=== PATIENT | male | born 1945 | race Caucasian/White ===

== ENCOUNTER → 2023-07-27 | Outpatient (CLI) | payer OTHER, SELFPAY ==
--- NOTE | 2023-07-27 | PROSBIL_PTH ---
PATIENT: BOBBY EDMOND LOC: [facility] U#:[id number] AGE/SX: 78/M ROOM: RE07/27/[address]: Dr. Amol Tang MD : 1945 BED: DIS: 07/27/2023 SPEC #: [id number] RECD: 07/27/23 15:24 STATUS: GILLIAN REViraj #: [id number] JAI: 07/27/23 00:[address]: Amol Tang DEPT: SURGICAL PATHOLOGY RECD BY: Calvin Crowell ENTERED: 07/30/23 10:27 SP TYPE: PROST BX OTHR DR: ELIAN Tissues: A - PROSTATE BIOPSY B - PROSTATE BIOPSY C - PROSTATE BIOPSY D - PROSTATE BIOPSY Procedures: PROSTATE BX HEADER OPERATION: Bilateral prostate biopsy PRE-OP DIAGNOSIS: Elevated prostate specific antigen TISSUE SUBMITTED: A - Prostate tissue #1, B- Prostate tissue #2, C- Prostate tissue #3, D- Prostate tissue #4 MICROSCOPIC DIAGNOSIS A. Prostate tissue #1, core biopsy: Prostatic adenocarcinoma. [place] grade: 4+3=7 Number of cores involved: 1/1 Proportion of tissue involved: >90 % Perineural invasion: Not identified. Greatest tumor length: 1.2 cm Focal high-grade prostatic intraepithelial neoplasia (HGPIN). B. Prostate tissue #2, core biopsy: Prostatic adenocarcinoma. [place] grade: 5+4=9 Number of cores involved: 1/1 Proportion of tissue involved: >90 % Perineural invasion: Present, focal Greatest tumor length: 1.3 cm Focal high-grade prostatic intraepithelial neoplasia (HGPIN). C. Prostate tissue #3, core biopsy: Prostatic adenocarcinoma. [place] grade: 5+4=9 Number of cores involved: 1/1 Proportion of tissue involved: >90 % Perineural invasion: Not identified. Greatest tumor length: 1.3 cm D. Prostate tissue #4, core biopsy: Prostatic adenocarcinoma. [place]i grade: 5+5=10 Number of cores involved: 1/1 Proportion of tissue involved: 50 % Perineural invasion: Not identified. Greatest tumor length: 0.5 cm SJ/mr 07/31/23 COMMENT Case has been reviewed in consultation with Dr. Beverly who concurs with the above diagnosis. IDC:AM MICROSCOPIC DESCRIPTION Slides are reviewed. GROSS DESCRIPTION A. Received in fixative is one container labeled with the patient's name and designated prostate biopsy #1. The specimen consists of one elongated fragments of light mackay-white soft tissue each measuring 1.5 cm in length and 0.1 cm in diameter. The specimen is totally submitted in one cassette. B. Received in fixative is one container labeled with the patient's name and designated prostate biopsy #2. The specimen consists of one elongated fragments of light mackay-white soft tissue each measuring 1.5 cm in length and 0.1 cm in diameter. The specimen is totally submitted in one cassette. C. Received in fixative is one container labeled with the patient's name and designated prostate biopsy#3. The specimen consists of one elongated fragments of light mackay-white soft tissue each measuring 2.0 cm in length and 0.1 cm in diameter. The specimen is totally submitted in one cassette. D. Received in fixative is one container labeled with the patient's name and designated prostate biopsy#4. The specimen consists of one elongated fragments of light mackay-white soft tissue each measuring 1.0 cm in length and 0.1 cm in diameter. The specimen is totally submitted in one cassette. AM/mr 07/30/23 TC:0 [facility]: [id number] x4
== END | disposition home or self-care (01) ==
LOC: LABSPEC 15:39
PROVIDERS: Referring Provider Urology; Visit Provider Urology
DX: C61 Malignant neoplasm of prostate (principal)
CPT/HCPCS: 88305; G0416

== ENCOUNTER → 2023-08-06 | Outpatient (CLI) | payer SELFPAY, OTHER ==
--- NOTE | 2023-08-06 09:30 | NM_ITS ---
CLINICAL: Male, 78 years old. MALIGNANT NEOPLASM OF PROSTATE-NEW DX -- PT IMMEDIATELY POST VOID WHOLE BODY NUCLEAR BONE SCAN TECHNIQUE: Following the IV administration of 21 mCi of Tc MDP, whole body bone imaging was performed with a gamma camera following a three hour delay. COMPARISON STUDIES : NM - None. CR - Not available for review at this time. CT - Not available for review at this time. MR - Not available for review at this time. US - Not available for review at this time. FINDINGS: Increased radiopharmaceutical uptake is seen in the right humeral head. Mild increased uptake also seen in both acromioclavicular joints as well as sternoclavicular joint most likely degenerative although radiographic correlation with the right shoulder is recommended. Focal uptake is seen in the compartment of the knee joint suggestive of degenerative change. Scattered focal uptake seen along the right thoracic spine. Correlation with radiographs recommended. NM/Bone Scan Whole Body IMPRESSION: Findings suggestive of a degenerative changes as described. The uptake in the thoracic spine most likely is degenerative in nature although correlation with the radiographs of the thoracic spine and right shoulder recommended. Electronically Signed: Grant Viera MD at 8:26 EDT ,
== END | disposition home or self-care (01) ==
PROVIDERS: PCP Family Medicine; Visit Provider Urology
DX: C61 Malignant neoplasm of prostate (principal)
CPT/HCPCS: 78306; A9503

== ENCOUNTER → 2023-08-13 | Outpatient (CLI) | payer SELFPAY, OTHER ==
--- NOTE | 2023-08-13 14:38 | CT_ITS ---
STUDY: CT ABDOMEN AND PELVIS WITH CONTRAST REASON FOR EXAM: Male, 78 years old. Malignant neoplasm of prostate RADIATION DOSAGE (If Supplied By Facility): CTDIvol = ( 18.68 ) mGy, DLP = ( 1438.33 ) mGycm TECHNIQUE: Transaxial images were obtained from the dome of the diaphragm to the symphysis pubis without oral contrast. IV 100mL Isovue-300 was administered. Sagittal and coronal images were reconstructed. Individualized dose optimization techniques were used for this CT. COMPARISON: None. FINDINGS: Minimal increased linear markings at the lung bases suggestive of scarring. Prior aortic valve replacement. Coronary artery calcification. Prior mitral valve replacement. Normal liver. The patient is status post cholecystectomy. Normal spleen. Normal pancreas. Normal bilateral adrenal glands. Normal right kidney. Normal left kidney. Normal visualized stomach. Normal small intestine. A large amount of fecal material is seen in the colon. The appendix is visualized and appears normal. There is diffuse atherosclerotic calcification of the abdominal aorta and its major visceral branches, without a demonstrated aneurysm. Normal inferior vena cava. Normal retroperitoneum. Distended urinary bladder. Heterogeneous appearance of the prostate. The prostate measures 4.5 cm x 4.3 cm. Small left inguinal hernia containing fat. There are degenerative changes of the visualized lumbar spine. Degenerative changes of the sacroiliac joints bilaterally more prominent on the right side. CT/Abdomen/Pelvis WITH Contrast IMPRESSION: Mild scarring at the lung bases. Heterogeneous appearance of the prostate with distended urinary bladder. Electronically Signed: Grant Viera MD at 15:40 EDT ,
[2023-08-13 15:29] LABS: CREATININE FINGERSTICK 1.3 mg/dL (0.70-1.30)
== END | disposition home or self-care (01) ==
LOC: CT 14:34
PROVIDERS: PCP Family Medicine; Referring Provider Urology; Visit Provider Urology
DX: C61 Malignant neoplasm of prostate (principal)
CPT/HCPCS: 74177; Q9967

== ENCOUNTER → 2024-12-24 | Outpatient (CLI) | payer SELFPAY, OTHER ==
--- OUTSIDE RECORDS SUMMARY | 2024-12-24 07:30 | XMS RPT_ITS | CCD ---
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 [Interp] N/A Normal [facility] Comment on above: Performed By: #### 2 97738 #### [facility],[address] [place] [address] Neut # 3.58 x10EE3/UL Normal 1.50 - 7.10 [facility] Comment on above: Performed By: #### 2 11059 #### [facility],[address] [place] [address] Neutrophils/100 WBC (Bld) 56.9 % Normal 46.0 - 76.0 [facility] Comment on above: Performed By: #### 2 52608 #### [facility],[address] [place] [address] PLATELET 172 x10EE3/UL Normal 150 - 450 [facility] Comment on above: Performed By: #### 2 59017 #### [place] [address] Platelet mean volume (Bld) [Entitic vol] 8.2 fL Normal 6.4 - 10.5 [facility] Comment on above: Result Comment: AUTO MATED DIFFERENTIAL Performed By: #### 2 40565 #### [place] [address],[place] [address] RBC 4.49 x 10EE6/UL Low 4.50 - 6.00 [facility] Comment on above: Performed By: #### 2 44183 #### [facility],[address] [place] [address]3763 WBC 6.3 x 10EE3/UL Normal 4.5 - 10.8 [facility] Comment on above: Performed By: #### 2 47185 #### [facility],[address] [place] [address]4413 CMP with eGFRon 11-24-2024 AGE 79 years Normal [facility] Comment on above: Performed By: #### 2 00958 #### [facility],[address] [place] [address] 73294 Albumin [Mass/Vol] 3.7 g/dL Normal 3.4 - 5.0 [facility] Comment on above: Performed By: #### 2 78677 #### [facility],[address] [place] [address] 24856 Albumin/Globulin [Mass ratio] 0.9 {ratio} Normal 0.9 - 1.6 [facility] Comment on above: Performed By: #### 2 89531 #### [facility],[address] [place] [address] 06577 ALK PHOS 129 U/L High 46 - 116 [facility] Comment on above: Performed By: #### 2 23685 #### [facility],[address] [place] [address] 48148 ALT [Catalytic activity/Vol] 28 U/L Normal 16 - 63 [facility] Comment on above: Performed By: #### 2 10642 #### [facility],[address] [place] [address] 75480 Anion gap [Moles/Vol] 11 mmol/L Normal 10 - 20 [facility] Comment on above: Performed By: #### 2 55031 #### [facility],[address] [place] [address] 01840 AST [Catalytic activity/Vol] 18 U/L Normal 15 - 37 [facility] Comment on above: Performed By: #### 2 68884 #### [facility],[address] [place] [address] 08156 B/C RATIO 20 ratio Normal 0 - 30 [facility] Comment on above: Performed By: #### 2 37789 #### [facility],[address] [place] [address] 70333 Bilirubin [Mass/Vol] 0.3 mg/dL Normal 0.2 - 1.0 [facility] Comment on above: Performed By: #### 2 90680 #### [facility],[address] [place] [address] 02477 Calcium [Mass/Vol] 9.2 mg/dL Normal 8.5 - 10.1 [facility] Comment on above: Performed By: #### 2 81378 #### [facility],[address] [place] [address] 23385 Chloride [Moles/Vol] 107 mmol/L Normal 98 - 107 [facility] Comment on above: Performed By: #### 2 38347 #### [facility],[address] [place] [address] 78753 CMP with eGFR Normal [facility] Comment on above: Result Comment: COMP REHENSIVE METABOLIC PANEL Performed By: #### 2 16105 #### [facility],[address] [place] [address] 33385 CO2 [Moles/Vol] 31.6 mmol/L Normal 21.0 - 32.0 [facility] Comment on above: Performed By: #### 2 32695 #### [facility],[address] [place] [address] 24561 Creatinine [Mass/Vol] 0.84 mg/dL Normal 0.70 - 1.30 [facility] Comment on above: Performed By: #### 2 96571 #### [facility],[address] [place] [address] 75116 GFR/1.73 sq M.predicted among non-blacks MDRD (S/P/Bld) [Vol rate/Area] mL/min/{1.73_m2} Normal 60 - 999 [facility] Comment on above: Performed By: #### 2 61294 #### [facility],[address] [place] [address] 04404 Result Comment: ACCO RDING TO THE NATIONAL KIDNEY DISEASE EDUCATION PROGRAM(NKDE), A NORMAL eGFR IS A VALUE GREATER THAN OR EQUAL TO 60 ML/MIN/1.73 SQ METERS. CHRONIC KIDNEY DISEASE: <60mL/MIN/1.73 SQ METERS KIDNEY FAILURE: <15mL/MIN/1.73 SQ METERS THIS TEST SHOULD ONLY BE USED FOR PATIENTS 18 YEARS OF AGE AND OLDER. Globulin (S) [Mass/Vol] 3.9 g/dL High 1.5 - 3.8 [facility] Comment on above: Performed By: #### 2 27441 #### [facility],[address] [place] [address] 16705 Glucose [Mass/Vol] 100 mg/dL Normal 74 - 106 [facility] Comment on above: Performed By: #### 2 96708 #### [facility],[address] [place] [address] 35736 Potassium [Moles/Vol] 4.5 mmol/L Normal 3.5 - 5.1 [facility] Comment on above: Performed By: #### 2 32520 #### [facility],[address] [place] [address] 95787 Protein [Mass/Vol] 7.6 g/dL Normal 6.4 - 8.2 [facility] Comment on above: Performed By: #### 2 52379 #### [facility],[address] [place] [address] 92879 Sodium [Moles/Vol] 145 mmol/L Normal 136 - 145 [facility] Comment on above: Performed By: #### 2 70180 #### [facility],[address] [place] [address] 30823 Urea nitrogen [Mass/Vol] 17 mg/dL Normal 7 - 18 [facility] Comment on above: Performed By: #### 2 49038 #### [facility],[address] [place] [address] 01644 IRONon 11-24-2024 Iron [Mass/Vol] 66 ug/dL Normal 65 - 175 [facility] Comment on above: Performed By: #### 2 54142 #### [facility],[address] [place] [address] 55197 NT-proBNPon 11-24-2024 Natriuretic peptide B (Bld) [Mass/Vol] 576 pg/mL High 0 - 450 [facility] Comment on above: Performed By: #### 2 48245 #### [facility],[address] [place] [address] 76676 T4 (THYROXINE) TOTALon 11-24 T4 (THYROXINE) TOTAL Normal [facility] Comment on above: Result Comment: THYR OXINE(T4) Performed By: #### 2 61137 #### [facility],[address] [place] [address] 75170 T4 [Mass/Vol] 5.8 ug/dL Normal 4.7 - 13.3 [facility] Comment on above: Performed By: #### 2 55692 #### [facility],[address] [place] [address] 57930 TSHon 11-24-2024 TSH Qn 5.42 m[IU]/L High 0.35 - 3.74 [facility] Comment on above: Performed By: #### 2 38790 #### [facility],[address] [place] [address] 21929 URINALYSISon 11-24-2024 Amorphous NONE Normal [facility] Comment on above: Performed By: #### 2 23169 #### [facility],[address] [place] [address] 14149 Bacteria TRACE Normal [facility] Comment on above: Performed By: #### 2 42314 #### [facility],[address] [place] [address] 46501 Bilirubin Ql (U) Negative Normal NORMAL: NEGATIVE [facility] Comment on above: Performed By: #### 2 78053 #### [facility],[address] [place] [address] 15007 Casts NONE Normal [facility] Comment on above: Performed By: #### 2 01302 #### [facility],[address] [place] [address] 32382 Clarity (U) clear Normal NORMAL: CLEAR [facility] Comment on above: Performed By: #### 2 72694 #### [facility],[address] [place] [address] 08098 Color (U) yellow Normal NORMAL: YELLOW [facility] Comment on above: Performed By: #### 2 10905 #### [facility],[address] [place] [address] 49807 Crystals LM Nom (Urine sed) NONE Normal [facility] Comment on above: Performed By: #### 2 53764 #### [facility],[address] [place] [address] 69884 Epi Cells OCC Normal [facility] Comment on above: Performed By: #### 2 99350 #### [facility],[address] [place] [address] 21082 Glucose Ql (U) NORM Normal NORMAL: NORMAL [facility] Comment on above: Performed By: #### 2 06870 #### [facility],[address] [place] [address] 22697 Hemoglobin Ql (U) 25 Abnormal NORMAL: NEGATIVE [facility] Comment on above: Performed By: #### 2 40301 #### [facility],[address] [place] [address] 44856 Ketone Negative Normal NORMAL: NEGATIVE [facility] Comment on above: Performed By: #### 2 94981 #### [facility],[address] [place] [address] 70691 Leukocytes 100 Abnormal NORMAL: NEGATIVE [facility] Comment on above: Performed By: #### 2 46482 #### [facility],[address] [place] [address] Mucous NONE Normal [facility] Comment on above: Performed By: #### 2 62743 #### [facility],[address] [place] [address] Nitrite Ql (U) Negative Normal NORMAL: NEGATIVE [facility] Comment on above: Performed By: #### 2 32078 #### [facility],[address] [place] [address] pH (U) 6 [pH] Normal NORMAL: 5.0-8.0 [facility] Comment on above: Performed By: #### 2 99192 #### [facility],[address] [place] [address] Protein Ql (U) 15 Abnormal NORMAL: NEGATIVE [facility] Comment on above: Performed By: #### 2 86571 #### [facility],[address] [place], [place] [address] Rbc 0-5 Normal 0-3/hpf [facility] Comment on above: Performed By: #### 2 12527 #### [facility],[address] [place], [place] [address] Sp Zillah 1.015 Normal NORMAL: 1.010-1.030 [facility] Comment on above: Performed By: #### 2 82115 #### [facility],[address] [place] [address] Specimen Type Void Normal [facility] Comment on above: Performed By: #### 2 36641 #### [facility],[address] [place] [address] Urinalysis dipstick W Reflex Microscopic panel (U) SEE BELOW Normal [facility] Comment on above: Result Comment: MICR OSCOPIC Performed By: #### 2 79803 #### [facility],[address] [place] [address] Urobilinog NORM Normal NORMAL: NORMAL [facility] Comment on above: Performed By: #### 2 94053 #### [facility],[address] [place] [address] Wbc 1-5 Normal 0-5/hpf [facility] Comment on above: Performed By: #### 2 74904 #### [facility],[address] [place] [address] Yeast NONE Normal [facility] Comment on above: Performed By: #### 2 15149 #### [facility],[address] [place] [address] CT CHEST/ABD/PELVIS C-C+on 0 06-20-2024 CT CHEST/ABD/PELVIS C-C+ [place] [address] Patient: MICHAEL EDMOND Phone#: : 1945 Age: 79 Gender: M Pt. Type: Out Account: [id number] Location: [facility] Ordering: LIVE RAFAEL Exam Date: 06/20/2024/14:14 Family Phys: RACHEAL ZUÑIGAD Charge Code: 026324 Physician: Laurel Order #: [id number] Dose#: [id number] PROCEDURE: CT CHEST/ABD/PELVIS W/WO COMPARISON: None. INDICATIONS: Prostate cancer. TECHNIQUE: After obtaining the patient's consent, CT images were obtained with oral contrast and with and without intravenous contrast material. All CT scans at this facility use dose modulation, iterative reconstruction, and/or weight based dosing when appropriate to reduce radiation dose to as low as reasonably achievable. IV CONTRAST: Omnipaque 350,80ml CHEST DOSE: 9.0 CTDIvol(mGy) ABDOMEN DOSE: 35.8 CTDIvol(mGy) FINDINGS: LUNGS: Normal. No visible pulmonary disease. VASCULATURE: Normal. No visible pulmonary arterial thrombus or attenuation. RUKHSANA: Normal. No mass or adenopathy. MEDIASTINUM: Normal. No mass or adenopathy. CARDIAC: Coronary artery calcification is present. There is a moderate hiatal hernia PLEURA: Normal. No mass or effusion. CHEST WALL: Normal. No mass or axillary adenopathy. LIVER: Normal. No enlargement, atrophy, abnormal density, or significant focal lesion. BILIARY: The gallbladder is absent. PANCREAS: Normal. No lesion, fluid collection, ductal dilatation, or atrophy. SPLEEN: Normal. No enlargement or focal lesion. KIDNEYS: Normal. No mass, obstruction, or calcification. ADRENALS: Normal. No mass or enlargement. AORTA/VASCULAR: Normal. No aneurysm or dissection. RETROPERITONEUM: Normal. No mass or adenopathy. BOWEL/MESENTERY: Normal. No visible mass, obstruction, or bowel wall thickening. ABDOMINAL WALL: Normal. No mass or hernia. Continued Report - Page 2 of 2 Patient: MICHAEL EDMOND. Phone#: : 1945 Age: 79 Gender: M Pt. Type: Out Account: [id number] Location: [facility] Ordering: Funding ProfilesNIE Exam Date: 06/20/2024/14:14 Family Phys: RACHEAL STEPHENS Charge Code: 498069 Physician: Laurel Order #: [id number] Dose#: [id number] URINARY BLADDER: There is minimal thickening of the bladder wall. Correlate with cystitis. PELVIC NODES: Normal. No adenopathy. PELVIC ORGANS: Normal. No visible mass. Pelvic organs appropriate for patient age. BONES: Normal. No bony lesion or fracture. OTHER: Negative. CONCLUSION: 1. There is no evidence of acute abdominal or pelvic abnormality. 2. There is no evidence of pulmonary embolus. Dictated by: Lisa Dowling MD on 06/20/2024 at 15:00 Approved by: Lisa Dowling MD on 06/20/2024 at 15:07 Normal [facility] CMP with eGFRon 06-18-2024 AGE 79 years Normal [facility] Comment on above: Performed By: #### 2 56022 #### [facility],[address] [place] [address] 93493 Albumin [Mass/Vol] 3.2 g/dL Low 3.4 - 5.0 [facility] Comment on above: Performed By: #### 2 77069 #### [facility],[address] [place] [address] 66680 Albumin/Globulin [Mass ratio] 0.8 {ratio} Low 0.9 - 1.6 [facility] Comment on above: Performed By: #### 2 30866 #### [facility],[address] [place] [address] 08686 ALK PHOS 127 U/L High 46 - 116 [facility] Comment on above: Performed By: #### 2 31805 #### [facility],[address] [place] [address] 55696 ALT [Catalytic activity/Vol] 24 U/L Normal 16 - 63 [facility] Comment on above: Performed By: #### 2 46955 #### [facility],[address] [place] [address] 89072 Anion gap [Moles/Vol] 8 mmol/L Low 10 - 20 [facility] Comment on above: Performed By: #### 2 43934 #### [facility],[address] [place] [address] 84169 AST [Catalytic activity/Vol] 20 U/L Normal 15 - 37 [facility] Comment on above: Performed By: #### 2 26912 #### [facility],[address] [place] [address] 27060 B/C RATIO 14 ratio Normal 0 - 30 [facility] Comment on above: Performed By: #### 2 32608 #### [facility],[address] [place] [address] 36165 Bilirubin [Mass/Vol] 0.2 mg/dL Normal 0.2 - 1.0 [facility] Comment on above: Performed By: #### 2 77713 #### [facility],[address] [place] [address] 82486 Calcium [Mass/Vol] 9.3 mg/dL Normal 8.5 - 10.1 [facility] Comment on above: Performed By: #### 2 89009 #### [facility],[address] [place] [address] 83283 Chloride [Moles/Vol] 107 mmol/L Normal 98 - 107 [facility] Comment on above: Performed By: #### 2 16303 #### [facility],[address] [place] [address] 31128 CMP with eGFR Normal [facility] Comment on above: Result Comment: COMP REHENSIVE METABOLIC PANEL Performed By: #### 2 14118 #### [facility],[address] [place] [address] 35111 CO2 [Moles/Vol] 32.0 mmol/L Normal 21.0 - 32.0 [facility] Comment on above: Performed By: #### 2 19577 #### [facility],[address] [place] [address] 33596 Creatinine [Mass/Vol] 1.00 mg/dL Normal 0.70 - 1.30 [facility] Comment on above: Performed By: #### 2 95650 #### [facility],[address] [place] [address] 44560 GFR/1.73 sq M.predicted among non-blacks MDRD (S/P/Bld) [Vol rate/Area] mL/min/{1.73_m2} Normal 60 - 999 [facility] Comment on above: Performed By: #### 2 75337 #### [facility],[address] [place] [address] 84124 Result Comment: ACCO RDING TO THE NATIONAL KIDNEY DISEASE EDUCATION PROGRAM(NKDE), A NORMAL eGFR IS A VALUE GREATER THAN OR EQUAL TO 60 ML/MIN/1.73 SQ METERS. CHRONIC KIDNEY DISEASE: <60mL/MIN/1.73 SQ METERS KIDNEY FAILURE: <15mL/MIN/1.73 SQ METERS THIS TEST SHOULD ONLY BE USED FOR PATIENTS 18 YEARS OF AGE AND OLDER. Globulin (S) [Mass/Vol] 4.0 g/dL High 1.5 - 3.8 [facility] Comment on above: Performed By: #### 2 07546 #### [address] [address] Glucose [Mass/Vol] 98 mg/dL Normal 74 - 106 [facility] Comment on above: Performed By: #### 2 37946 #### [address] [address] Potassium [Moles/Vol] 4.6 mmol/L Normal 3.5 - 5.1 [facility] Comment on above: Performed By: #### 2 11041 #### [address] [address] Protein [Mass/Vol] 7.2 g/dL Normal 6.4 - 8.2 [facility] Comment on above: Performed By: #### 2 86479 #### [address] [address] Sodium [Moles/Vol] 142 mmol/L Normal 136 - 145 [facility] Comment on above: Performed By: #### 2 11630 #### [address] [address] Urea nitrogen [Mass/Vol] 14 mg/dL Normal 7 - 18 [facility] Comment on above: Performed By: #### 2 95195 #### [address] [address] CEA [CCL]on 05-14-2024 CEA 4.2 ng/mL High <=2.9 [facility] Comment on above: Result Comment: Carc inoembryonic antigen test is used as an aid in monitoring response to treatment or recurrence in patients with established colorectal, breast, lung, prostatic, pancreatic, and ovarian carcinomas. Clinical correlation is required. The Carcinoembryonic antigen test was performed using the [place] [employer] DXI paramagnetic particle chemiluminescent immunoassay method. Results obtained with different assay methods or kits cannot be used interchangeably. [place] [id number] [place] [id number] Steve Fontaine III, M.D. [id number] Performed By: #### 2 41084 #### [facility],[address] [place] [address] 06582 PSA, FREE [CCL]on 05-13-2024 PSA, Diagnostic 7.98 ng/mL High <2.60 [facility] Comment on above: Result Comment: Tota l PSA test methodology used is the Electrochemiluminescence Immunoassay by [employer]. Total PSA values by differing methodologies cannot be interchanged. For an individual patient, the significance of a PSA level should be interpreted in a broad clinical context, including age, race, family history, digital rectal exam, prostate size, results of prior testing (prostate biopsy, free PSA, PCA3), and use of 5-alpha reductase inhibitors. Considering the high incidence of asymptomatic cancer in the general population that may not pose an ultimate risk to a patient, the decision to recommend urological evaluation or prostate biopsy should be individualized after consideration of all these factors. REFERENCE: Andrae Marks M.D., M.P.H., Chung Caicedo M.D., Ph.D., Chase Puentes M.D., Laine Armstrong, M.P.H., Leanna Galindo, Anthony. Effect of Verification Bias on Screening for Prostate Cancer by Measurement of Prostatic Specific Antigen. N Engl J Med 2003,349:335-42. Performed By: #### 2 12357 #### [facility],[address] [place] [address] 22006 PSA, Percent Free 11 % Normal [facility] Comment on above: Result Comment: Tota l and free PSA test methodology used is the Electrochemiluminescence Immunoassay by [employer]. Total or free PSA values by differing methodologies cannot be interchanged. The below table lists the probability of finding prostate cancer upon needle biopsy, for men 50 years or older and total PSA concentrations from 4.0-10.0 ng/mL. Results should be interpreted within the broader clinical context. Free PSA(%) 50-59 years 60-69 years >69 years <11 49.2% 57.5% 64.5% 11-18 26.9% 33.9% 40.8% 19-25 18.3% 23.9% 29.7% >25 9.1% 12.2% 15.8% [facility] [address] [place] [address] Steve Fontaine III, M.D. [id number] Performed By: #### 2 77588 #### [address] [address] TESTOSTERONE [CCL]on 025 Testosterone [Mass/Vol] 712 ng/dL Normal 193-824 [facility] Comment on above: Result Comment: A te stosterone level in the 193-320 ng/dL range with associated clinical symptoms is considered low and may indicate hypogonadism (from [place] 2010 363:123-135). Results >320 ng/dL are considered normal. [facility] [address] [place] [address] Steve Fontaine III, M.D. [id number] Performed By: #### 2 97155 #### [address] [address] T3, FREE [CCL]on 05-12-2024 Free T3 [Mass/Vol] 2.9 pg/mL Normal 2.3-4.1 [facility] Comment on above: Result Comment: [facility] [address] [place] [address] Steve Fontaine III, M.D. [id number] Performed By: #### 2 27597 #### [address] [address] T4-FREE (FREE THYROXINE)on 05-12-2024 Free T4 [Mass/Vol] 0.41 ng/dL Low 0.76 - 1.46 [facility] Comment on above: Result Comment: P otential of falsely elevated results when biotin concentrations are > 10 ng/mL. Performed By: #### 2 75725 #### [facility],[address] [place] [address] 38086 SEDRATEon 05-11-2024 SEDRATE 38 mm/hr High 0 - 20 [facility] Comment on above: Performed By: #### 2 86985 #### [facility],[address] [place] [address] 10172 C-REACTIVE PROTEINon 025 CRP [Mass/Vol] mg/L Normal 0.00 - 0.90 [facility]; [facility] Work Phone: Comment on above: Performed By: #### 2 26253 #### [facility],[address] [place] [address] 80893 CBC + DIFFon 05-10-2024 Baso # 0.01 x10EE3/UL Normal 0.00 - 0.10 [facility] Comment on above: Performed By: #### 2 39110 #### [address] [address] Basophils/100 WBC (Bld) 0.2 % Normal 0.0 - 2.0 [facility]; [facility] Work Phone: Comment on above: Performed By: #### 2 43681 #### [facility],[address] [place] [address] 02546 CBC + DIFF Normal [facility] Comment on above: Result Comment: CBC- COMPLETE BLOOD COUNT Performed By: #### 2 32897 #### [facility],[address] [place] [address] 53448 EO # 0.08 x10EE3/UL Normal 0.00 - 0.50 [facility] Comment on above: Performed By: #### 2 25370 #### [facility],[address] [place] [address] 23671 Eosinophils/100 WBC (Bld) 1.9 % Normal 0.0 - 7.0 [facility], [employer] [facility] [employer] [facility], [employer] Work Phone: Comment on above: Performed By: #### 2 80907 #### [address] [address] Erythrocyte distribution width (RBC) [Ratio] 13.7 % Normal 12.0 - 15.6 [facility], [employer] [facility] Work Phone: Comment on above: Performed By: #### 2 06301 #### [address] [address] Hematocrit (Bld) [Volume fraction] 38.5 % Low 40.0 - 52.0 [facility] [employer] [place] [facility] [employer] [facility], Inc[facility] Work Phone: Comment on above: Performed By: #### 2 [id number] #### [address] [address] Hemoglobin (Bld) [Mass/Vol] 12.8 g/dL Low 13.0 - 17.5 [facility] [employer] [facility], [employer].; [facility] [employer] [facility] Work Phone: Comment on above: Performed By: #### 2 60329 #### [address] [address] Lymph # 1.25 x10EE3/UL Normal 0.80 - 2.80 [facility] Comment on above: Performed By: #### 2 07007 #### [address] [address] Lymphocytes/100 WBC (Bld) 29.9 % Normal 20.0 - 45.0 [facility].; [facility]. Work Phone: Comment on above: Performed By: #### 2 71665 #### [facility],[address] [place], [place] [id number] MANUAL DIFF N/A Normal [facility] Comment on above: Performed By: #### 2 74571 #### [facility],[address] [place] [address] MCH (RBC) [Entitic mass] 30 pg Normal 27 - 33 [facility].; [facility]. Work Phone: Comment on above: Performed By: #### 2 22135 #### [place] [address] MCHC 33 X10 3 Normal 32 - 36 [facility] Comment on above: Performed By: #### 2 44391 #### [place] [address] MCV (RBC) [Entitic vol] 89 fL Normal 81 - 98 [facility] ClinicsSn[facility] [employer]rends [facility].; [facility] Work Phone: Comment on above: Performed By: #### 2 58622 #### [facility],[address] [place] [address] Sawyer # 0.34 x10EE3/UL Normal 0.20 - 1.00 [facility] Comment on above: Performed By: #### 2 23628 #### [facility],[address] [place] [address] MONOS % 8.0 % Normal 0.0 - 10.0 [facility] Comment on above: Performed By: #### 2 30861 #### [place] [id number] Morphology Leoncio (Bld) [Interp] N/A Normal [facility] Comment on above: Performed By: #### 2 69884 #### [facility],[address] [place] [address] Neut # 2.51 x10EE3/UL Normal 1.50 - 7.10 [facility] Comment on above: Performed By: #### 2 22965 #### [facility],[address] [place] [address] Neutrophils/100 WBC (Bld) 59.9 % Normal 46.0 - 76.0 [facility].; [facility], [employer]. Work Phone: Comment on above: Performed By: #### 2 12274 #### [facility],[address] [place] [address] PLATELET 173 x10EE3/UL Normal 150 - 450 [facility] Comment on above: Performed By: #### 2 42472 #### [facility],[address] [place] [address] Platelet mean volume (Bld) [Entitic vol] 8.5 fL Normal 6.4 - 10.5 [facility].; [facility], [employer]. Work Phone: Comment on above: Result Comment: AUTO MATED DIFFERENTIAL Performed By: #### 2 71484 #### [facility],[address] [place] [address]22 RBC 4.34 x 10EE6/UL Low 4.50 - 6.00 [facility] Comment on above: Performed By: #### 2 90649 #### [facility],[address] [place] [address] WBC 4.2 x 10EE3/UL Low 4.5 - 10.8 [facility] Comment on above: Performed By: #### 2 81945 #### [facility],[address] [place] [address] CMP with eGFRon 05-10-2024 AGE 79 years Normal [facility] Comment on above: Performed By: #### 2 84241 #### [facility],[address] [place] [address]229 Albumin [Mass/Vol] 3.5 g/dL Normal 3.4 - 5.0 [facility], [facility].; [facility], [facility]. Work Phone: Comment on above: Performed By: #### 2 75106 #### [facility],[address] [place] [address] Albumin/Globulin [Mass ratio] 0.8 {ratio} Low 0.9 - 1.6 [facility] Comment on above: Performed By: #### 2 34744 #### [facility],[address] [place] [address] ALK PHOS 132 U/L High 46 - 116 [facility] Comment on above: Performed By: #### 2 74172 #### [facility],[address] [place] [address] 06163 ALT [Catalytic activity/Vol] 25 U/L Normal 16 - 63 [facility].; [facility], [facility]. Work Phone: Comment on above: Performed By: #### 2 49082 #### [facility],[address] [place] [address] Anion gap [Moles/Vol] 11 mmol/L Normal 10 - 20 [facility] Comment on above: Performed By: #### 2 97827 #### [facility],[address] [place] [address]605 AST [Catalytic activity/Vol] 23 U/L Normal 15 - 37 [facility].; [facility], [facility]. Work Phone: Comment on above: Performed By: #### 2 55337 #### [facility],[address] [place] [address] B/C RATIO 14 ratio Normal 0 - 30 [facility] Comment on above: Performed By: #### 2 39638 #### [facility],[address] [place] [address] Bilirubin [Mass/Vol] 0.2 mg/dL Normal 0.2 - 1.0 [facility]; [facility], [facility] Work Phone: Comment on above: Performed By: #### 2 06875 #### [facility],[address] [place] [address] Calcium [Mass/Vol] 9.4 mg/dL Normal 8.5 - 10.1 [facility], [facility]; [facility], [facility] Work Phone: Comment on above: Performed By: #### 2 99599 #### [address] [address] Chloride [Moles/Vol] 107 mmol/L Normal 98 - 107 [facility]; [facility], [facility]. Work Phone: Comment on above: Performed By: #### 2 76564 #### [address] [address] CMP with eGFR Normal [facility] Comment on above: Result Comment: COMP REHENSIVE METABOLIC PANEL Performed By: #### 2 17601 #### [address] [address] CO2 [Moles/Vol] 29.6 mmol/L Normal 21.0 - 32.0 [facility], [facility].; [facility], [facility]. Work Phone: Comment on above: Performed By: #### 2 41158 #### [address] [address] Creatinine [Mass/Vol] 0.95 mg/dL Normal 0.70 - 1.30 [facility].; [facility] [employer] [facility], [employer]. Work Phone: Comment on above: Performed By: #### 2 80104 #### [facility],[address] [place] [address] GFR/1.73 sq M.predicted among non-blacks MDRD (S/P/Bld) [Vol rate/Area] mL/min/{1.73_m2} Normal 60 - 999 [facility] Comment on above: Performed By: #### 2 66214 #### [facility],[address] [place] [address] Result Comment: ACCO RDING TO THE NATIONAL KIDNEY DISEASE EDUCATION PROGRAM(NKDE), A NORMAL eGFR IS A VALUE GREATER THAN OR EQUAL TO 60 ML/MIN/1.73 SQ METERS. CHRONIC KIDNEY DISEASE: <60mL/MIN/1.73 SQ METERS KIDNEY FAILURE: <15mL/MIN/1.73 SQ METERS THIS TEST SHOULD ONLY BE USED FOR PATIENTS 18 YEARS OF AGE AND OLDER. Globulin (S) [Mass/Vol] 4.3 g/dL High 1.5 - 3.8 [facility].; [facility], [employer]. Work Phone: Comment on above: Performed By: #### 2 47379 #### [facility],[address] [place] [address] Glucose [Mass/Vol] 105 mg/dL Normal 74 - 106 [facility].; [facility] [employer] [facility], [employer]. Work Phone: Comment on above: Performed By: #### 2 68645 #### [facility],[address] [place] [address] Potassium [Moles/Vol] 4.4 mmol/L Normal 3.5 - 5.1 [facility].; [facility], [employer]. Work Phone: Comment on above: Performed By: #### 2 73557 #### [facility],[address] [place] [address] Protein [Mass/Vol] 7.8 g/dL Normal 6.4 - 8.2 [facility].; [facility], [employer]. Work Phone: Comment on above: Performed By: #### 2 80109 #### [facility],[address] [place] [address] Sodium [Moles/Vol] 143 mmol/L Normal 136 - 145 [facility].; [facility] [employer] [facility], [employer]. Work Phone: Comment on above: Performed By: #### 2 18457 #### [facility],[address] [place] [address] Urea nitrogen [Mass/Vol] 13 mg/dL Normal 7 - 18 [facility].; [facility]. Work Phone: Comment on above: Performed By: #### 2 87302 #### [facility],[address] [place] [address] HEMOGLOBIN A1C (POM)on 05-10 Glucose [Mass/Vol] 128.4 mg/dL High 0.0 - 0.0 [facility] Comment on above: Result Comment: Do HEMOGLOBIN A1C REFERENCE RANGESBLDo Suggested Diagnosis HbA1c(%) HbA1C (mmol/mol Diabetic >/=6.5 >/=48 Prediabetes 5.7 - 6.4 39 - 47 Normal <5.7 <39 Performed By: #### 2 60677 #### [facility],[address] [place] [address] HbA1c (Bld) [Mass fraction] 6.1 % Normal 0.0 - 6.5 [facility] Comment on above: Performed By: #### 2 04910 #### [facility],[address] [place] [address] IRONon 05-10-2024 Iron [Mass/Vol] 80 ug/dL Normal 65 - 175 [facility] [employer] [facility], [facility] Work Phone: Comment on above: Performed By: #### 2 54715 #### [facility],[address] [place] [address] LIPID PROFILEon 05-10-2024 Cholesterol [Mass/Vol] 181 mg/dL Normal 0 - 240 [facility] [employer] [facility], [employer].; [facility], Inc. Work Phone: Comment on above: Performed By: #### 2 47823 #### [facility],[address] [place] [address] Cholesterol in HDL [Mass/Vol] 40 mg/dL Normal 40 - 60 [facility] Comment on above: Performed By: #### 2 00143 #### [facility],[address] [place] [address] Cholesterol in LDL [Mass/Vol] 113 mg/dL Normal 0 - 129 [facility].; [facility] [employer] [facility], [facility] Work Phone: Comment on above: Performed By: #### 2 52681 #### [facility],[address] [place] [address] Cholesterol.total/Ch olesterol in HDL [Mass ratio] 4.5 {ratio} Normal 0.0 - 5.0 [facility] [employer] [facility].; [facility] [employer] [facility] Work Phone: Comment on above: Performed By: #### 2 05316 #### [facility],[address] [place] [address] Lipid 1996 panel Normal [facility] Comment on above: Result Comment: LIPI D PROFILE Performed By: #### 2 59338 #### [facility],[address] [place] [address] Triglyceride [Mass/Vol] 142 mg/dL Normal 0 - 150 [facility]; [employer]UNL[employer] Ryan [facility] Work Phone: Comment on above: Performed By: #### 2 53886 #### [facility],[address] [place] [address] Laboratory - Chemistry and C hemistry - challengeon 05-10-2024 25-hydroxyvitamin D3 [Mass/Vol] 69.60 ng/mL Normal 30.00 - 100 ng/mL [facility]; [employer] Ryan [facility]. Work Phone: Albumin [Mass/Vol] 0.8 g/dL Abnormal 0.9 - 1.6 [facility]; [facility] Work Phone: Average glucose Estimated from glycated hemoglobin (Bld) [Mass/Vol] 128.4 mg/dL Abnormal 0.0 - 0.0 mg/dL [facility]; [employer]UN[employer] Ryan [facility] [employer] [facility] Work Phone: Cholesterol in HDL [Mass or moles/Vol] 40 mg/dL Normal 40 - 60 mg/dL [facility]; [employer] Ryan [facility] Work Phone: Free T4 [Mass/Vol] 0.41 ng/dL Abnormal 0.76 - 1. 46 ng/dL [facility]; [employer] Ryan [facility] [employer] [facility] Work Phone: GFR/1.73 sq M.predicted among blacks MDRD (S/P/Bld) [Vol rate/Area] mL/min/{1.73_m2} Normal 60 - 999 {ML/MINUTE} [facility]; [facility] Work Phone: GFR/1.73 sq M.predicted MDRD (S/P/Bld) [Vol rate/Area] mL/min/{1.73_m2} Normal 60 - 999 {ML/MINUTE} [facility] [employer] [facility]; [facility] Work Phone: Glucose [Mass/Vol] NORM Normal [facility]; [facility] Work Phone: Prostate specific Ag [Mass/Vol] 11.10 ng/mL Abnormal 0.00 - 4.00 ng/mL [facility]; [facility] Work Phone: Urea nitrogen (U) [Mass/Vol] 676 pg/mL Abnormal 0 - 450 pg/mL [facility]; [facility] Work Phone: Urea nitrogen/Creatinine [Mass ratio] 14 {ratio} Normal 0 - 30 {ratio} [facility]; [facility] Work Phone: Laboratory - Hematology and Cell countson 05-10-2024 Basophils (Bld) [#/Vol] 0.01 {x10EE3/UL} Normal 0.00 - 0.10 {x10EE3/UL} [facility]; [facility], [facility] Work Phone: Eosinophils (Bld) [#/Vol] 0.08 {x10EE3/UL} Normal 0.00 - 0.50 {x10EE3/UL} [facility]; [facility], [facility] Work Phone: ESR (Bld) [Velocity] 38 mm/h Abnormal 0 - 20 mm/h Eas [facility]; [facility], [facility] Work Phone: Lymphocytes (Bld) [#/Vol] 1.25 {x10EE3/UL} Normal 0.80 - 2.80 {x10EE3/UL} [facility]; [facility], [facility] Work Phone: MCHC (RBC) [Mass/Vol] 33 {X10_3} Normal 32 - 36 {X10_3} [facility] [employer] [facility].; [facility], [employer]. Work Phone: Monocytes (Bld) [#/Vol] 0.34 {x10EE3/UL} Normal 0.20 - 1.00 {x10EE3/UL} [facility] [employer] [facility].; [facility], [employer]. Work Phone: Monocytes/100 WBC (Bld) 8.0 % Normal 0.0 - 10.0 % [facility] [employer] [facility].; [facility] [employer] [facility] Work Phone: Neutrophils (Bld) [#/Vol] 2.51 {x10EE3/UL} Normal 1.50 - 7.10 {x10EE3/UL} [facility] [employer] [facility].; [facility] [employer] [facility], [employer]. Work Phone: Platelets (Bld) [#/Vol] 173 {x10EE3/UL} Normal 150 - 450 {x10EE3/UL} [facility] [employer] [facility].; [facility] [employer] [facility] Work Phone: RBC (Bld) [#/Vol] 4.34 {x_10EE6/UL} Abnormal 4.50 - 6.00 {x_10EE6/UL } [facility] [employer] [facility].; [facility] [employer] [facility] Work Phone: WBC (Bld) [#/Vol] 4.2 {x_10EE3/UL} Abnormal 4.5 - 10.8 {x_10EE3/UL } [facility] [employer] [facility].; [facility] [employer] [facility] Work Phone: NT-proBNPon 05-10-2024 Natriuretic peptide B (Bld) [Mass/Vol] 676 pg/mL High 0 - 450 [facility] Comment on above: Performed By: #### 2 93846 #### [facility],[address] [place] [address] No Panel Informationon 05-10 7.98 ng/mL Abnormal [facility], Inc.; Its Time Compliance [facility] [employer] [facility] Work Phone: 11 % Normal [facility] [employer] [facility], Inc.; [employer] - [facility], Inc[facility] Work Phone: 712 ng/dL Normal 193 - 824 ng/dL [facility], Inc.; [employer] - [facility], Inc. Work Phone: N/A Normal [facility] [employer] [facility], Inc.; [facility], Inc. Work Phone: 6.1 % Normal 0.0 - 6.5 % [facility], Inc.; Its [employer] - [facility] [employer] [facility] Work Phone: Void Normal [facility] [employer] [facility], Inc.; [place] - [facility], Inc. Work Phone: jas Normal [facility] [employer] [facility], [facility].; [employer] - [facility] [employer] [facility] Work Phone: clear Normal [facility] [employer] [facility], [facility].; [place] - [facility] [employer] [facility] Work Phone: 6.5 Normal [facility], Inc.; [employer] - [facility] [employer] [facility] Work Phone: 15 Abnormal [facility] [employer] [facility], Inc.; [place] - [facility] [employer] [facility] Work Phone: Negative Normal [facility] [employer] [facility], [facility].; [employer] - [facility] [employer] [facility] Work Phone: 25 Abnormal [facility] [employer] [facility], Inc.; [email or web address] [facility] [employer] [facility] Work Phone: NORM Normal [facility] [employer] [facility], Inc.; Its [employer] - [facility] [employer] [facility] Work Phone: 1.010 Normal [facility] [employer] [facility], Inc.; [email or web address] [facility] [employer] [facility] Work Phone: 500 Abnormal [facility] [employer] [facility].; [facility], Inc. Work Phone: SEE BELOW Normal [facility] [employer] [facility].; [facility], Inc. Work Phone: 1-5 Normal 0 - 5 [facility] [employer] [facility].; [facility], Inc. Work Phone: 0-5 Normal 0 - 3 [facility].; [facility], Inc. Work Phone: NONE Normal [facility] [employer] [facility].; [facility], Inc. Work Phone: OCC Normal [facility] [employer] [facility].; Its [employer] Compliance [facility] [employer] [facility] Work Phone: 132 U/L Abnormal 46 - 116 U/L [facility] [employer] [facility] IllO[facility].; [email or web address] [facility] [employer] [facility] Work Phone: 11 mmol/L Normal 10 - 20 mmol/L [facility] [employer] [facility].; [facility] [employer] [facility] Work Phone: 79 {years} Normal [facility] [employer] [facility].; Its [employer]iance [facility] [employer] [facility] Work Phone: 2.9 pg/mL Normal 2.3 - 4.1 pg/mL [facility] [employer] [facility].; [email or web address] [facility] [employer] [facility] Work Phone: TSHon 05-10-2024 TSH Qn 16.36 m[IU]/L High 0.35 - 3.74 [facility] [employer] [facility].; Its [employer]iance [facility] [employer] [facility] Work Phone: Comment on above: Performed By: #### 2 51720 #### [facility],[address] [place] [address] URIC ACIDon 05-10-2024 Urate [Mass/Vol] 4.6 mg/dL Normal 3.5 - 7.2 [facility].; [facility] CenterSn[facility]. Work Phone: Comment on above: Performed By: #### 2 97002 #### [facility],[address] [place] [address] 86138 URINALYSISon 05-10-2024 Amorphous NONE Normal [facility] Comment on above: Performed By: #### 2 94390 #### [facility],[address] [place] [address] 86884 Bacteria NONE Normal [facility] Comment on above: Performed By: #### 2 20823 #### [facility],[address] [place] [address] 70060 Bilirubin Ql (U) Negative Normal NORMAL: NEGATIVE [facility] Comment on above: Performed By: #### 2 77504 #### [facility],[address] [place] [address] 50452 Casts NONE Normal [facility] Comment on above: Performed By: #### 2 57328 #### [facility],[address] [place] [address] 75148 Clarity (U) clear Normal NORMAL: CLEAR [facility] Comment on above: Performed By: #### 2 28684 #### [facility],[address] [place] [address] 04316 Color (U) jas Normal NORMAL: YELLOW [facility] Comment on above: Performed By: #### 2 65098 #### [facility],[address] [place] [address] 31615 Crystals LM Nom (Urine sed) NONE Normal [facility] Comment on above: Performed By: #### 2 56514 #### [facility],[address] [place] [address] 44503 Epi Cells OCC Normal [facility] Comment on above: Performed By: #### 2 41441 #### [facility],[address] [place] [address] 89571 Glucose Ql (U) NORM Normal NORMAL: NORMAL [facility] Comment on above: Performed By: #### 2 27523 #### [facility],[address] [place] [address] 38959 Hemoglobin Ql (U) 25 Abnormal NORMAL: NEGATIVE [facility] Comment on above: Performed By: #### 2 98136 #### [facility],[address] [place] [address] 67061 Ketone Negative Normal NORMAL: NEGATIVE [facility] Comment on above: Performed By: #### 2 15808 #### [facility],[address] [place] [address] 06287 Leukocytes 500 Abnormal NORMAL: NEGATIVE [facility] Comment on above: Performed By: #### 2 50668 #### [facility],[address] [place] [address] 57324 Mucous NONE Normal [facility] Comment on above: Performed By: #### 2 [id number] #### [facility],[address] [place] [id number] Nitrite Ql (U) Negative Normal NORMAL: NEGATIVE [facility] Comment on above: Performed By: #### [id number] #### [facility],[address] [place] [address] [id number] pH (U) 6.5 [pH] Normal NORMAL: 5.0-8.0 [facility] Comment on above: Performed By: #### 2 [id number] #### [facility],[address] [place] [address] [id number] Protein Ql (U) 15 Abnormal NORMAL: NEGATIVE [facility] Comment on above: Performed By: #### 2 [id number] #### [facility],[address] [place] [address] [id number] Rbc 0-5 Normal 0-3/hpf [facility] Comment on above: Performed By: #### 2 [id number] #### [facility],[address] [place] [address] Sp Zillah 1.010 Normal NORMAL: 1.010-1.030 [facility] Comment on above: Performed By: #### 2 [id number] #### [facility],[address] [place], [place] [id number] Specimen Type Void Normal [facility] Comment on above: Performed By: #### 2 [id number] #### [facility],[address] [place], [place] [id number] Urinalysis dipstick W Reflex Microscopic panel (U) SEE BELOW Normal [facility] Comment on above: Result Comment: MICR OSCOPIC Performed By: #### 2 [id number] #### [facility],[address] [place], [place] [id number] Urobilinog NORM Normal NORMAL: NORMAL [facility] Comment on above: Performed By: #### 2 [id number] #### [facility],[address] [place] [address] [id number] Wbc 1-5 Normal 0-5/hpf [facility] Comment on above: Performed By: #### 2 [id number] #### [facility],[address] [place] [address] 63243 Yeast NONE Normal [facility] Comment on above: Performed By: #### 2 [id number] #### [facility],[address] [place], [place] [id number] VITAMIN D, 25 HYDROXYon 04-23 VitD 69.60 ng/mL Normal 30.00 - 100 [facility] Comment on above: Result Comment: 25-O HD3 indicates both endogenous production and supplementation. 25-OHD2 is an indicator of exogenous sources, such as diet or supplementation. Therapy is based on measurement of Total 25-OHD, with levels <20 ng/mL indicative of Vitamin D deficiency, while levels between 20 ng/mL and 30 ng/mL suggest insufficiency. Optimal levels are >=30ng/mL. Vitamin D, 25-OH D3 Not Established Vitamin D, 25-OH D2 Not Established Performed By: #### 2 [id number] #### [facility],[address] [place] [address] Laboratory - Chemistry and C hemistry - challengeon 09-24-2023 25-hydroxyvitamin D3 [Mass/Vol] 71.00 ng/mL Normal 30.00 - 100 ng/mL [facility]; [facility], [facility] Work Phone: Albumin [Mass/Vol] 3.3 g/dL Abnormal 3.4 - 5.0 g/dL [facility]; [facility], [facility] Work Phone: Albumin [Mass/Vol] 0.8 g/dL Abnormal 0.9 - 1.6 [facility]; [facility], [facility] Work Phone: ALT [Catalytic activity/Vol] 23 U/L Normal 16 - 63 U/L [facility]; [facility], [facility] Work Phone: Anion gap [Moles/Vol] 11 mmol/L Normal 10 - 20 mmol/L [facility]; [facility], [facility]. Work Phone: AST [Catalytic activity/Vol] 13 U/L Abnormal 15 - 37 U/L [facility]; [facility], [facility] Work Phone: Average glucose Estimated from glycated hemoglobin (Bld) [Mass/Vol] 128.4 mg/dL Abnormal 0.0 - 0.0 mg/dL [facility]; [facility], [facility]. Work Phone: Bilirubin [Mass/Vol] Negative Normal [facility]; [facility], [facility]. Work Phone: Bilirubin [Mass/Vol] 0.2 mg/dL Normal 0.2 - 1 .0 mg/dL [facility]; [facility], [facility] Work Phone: Calcium [Mass/Vol] 9.1 mg/dL Normal 8.5 - 10. 1 mg/dL [facility]; [facility] Work Phone: Chloride [Moles/Vol] 105 mmol/L Normal 98 - 10 7 mmol/L [facility]; [facility] Work Phone: Cholesterol [Mass/Vol] 194 mg/dL Normal 0 - 240 mg/dL [facility]; [facility] Work Phone: Cholesterol in HDL [Mass or moles/Vol] 37 mg/dL Abnormal 40 - 60 mg/dL [facility]; [facility] Work Phone: Cholesterol in LDL [Mass/Vol] 115 mg/dL Normal 0 - 129 mg/dL [facility]; [facility] Work Phone: Cholesterol.total/Ch olesterol in HDL [Mass ratio] 5.2 {ratio} Abnormal 0.0 - 5.0 [facility]; [facility] Work Phone: CO2 [Moles/Vol] 30.1 mmol/L Normal 21.0 - 32.0 mmol/L [facility]; [facility] Work Phone: Creatinine [Mass/Vol] 1.14 mg/dL Normal 0.70 - 1.30 mg/dL [facility]; [facility] Work Phone: CRP [Mass/Vol] 0.37 mg/dL Normal 0.00 - 0.90 mg/dL [facility]; [facility] Work Phone: Free T3 [Mass/Vol] 2.4 pg/mL Normal 2.3 - 4.1 pg/mL [facility]; [facility] Work Phone: Free T4 [Mass/Vol] 0.67 ng/dL Abnormal 0.76 - 1. 46 ng/dL [facility]; [facility], [facility]. Work Phone: GFR/1.73 sq M.predicted among blacks MDRD (S/P/Bld) [Vol rate/Area] mL/min/{1.73_m2} Normal 60 - 999 {ML/MINUTE} [facility]; [facility] Work Phone: GFR/1.73 sq M.predicted MDRD (S/P/Bld) [Vol rate/Area] mL/min/{1.73_m2} Normal 60 - 999 {ML/MINUTE} [facility]; [facility], [facility]. Work Phone: Globulin (S) [Mass/Vol] 4.1 g/dL Abnormal 1.5 - 3.8 g/dL [facility]; [facility], [facility]. Work Phone: Glucose [Mass/Vol] NORM Normal [facility]; [facility], [facility] Work Phone: Glucose [Mass/Vol] 92 mg/dL Normal 74 - 106 mg/dL [facility]; [facility], [facility] Work Phone: Iron [Mass/Vol] 82 ug/dL Normal 65 - 175 ug/dL [facility]; [facility], [facility] Work Phone: Lipid 1996 panel Normal [facility]; [facility], [facility] Work Phone: pH (Bld) 5 [pH] Normal [facility]; [facility] Work Phone: Potassium [Moles/Vol] 4.0 mmol/L Normal 3.5 - 5.1 mmol/L [facility]; [facility] Work Phone: Prostate specific Ag [Mass/Vol] 36.94 ng/mL Abnormal 0.00 - 4.00 ng/mL [facility]; [facility] Work Phone: Protein [Mass/Vol] 15 g/dL Abnormal [facility]; [facility] Work Phone: Protein [Mass/Vol] 7.4 g/dL Normal 6.4 - 8.2 g/dL [facility]; [facility] Work Phone: Sodium [Moles/Vol] 142 mmol/L Normal 136 - 145 mmol/L [facility]; [facility] Work Phone: Testosterone [Mass/Vol] 331 ng/dL Normal 193 - 824 ng/dL [facility]; [facility] Work Phone: Triglyceride [Mass/Vol] 208 mg/dL Abnormal 0 - 150 mg/dL [facility]; [facility] Work Phone: TSH Qn 2.97 m[IU]/L Normal 0.35 - 3.74 {uIU/ml} [facility]; [facility] Work Phone: Urea nitrogen [Mass/Vol] 18 mg/dL Normal 7 - 18 mg/dL [facility]; [facility] Work Phone: Urea nitrogen/Creatinine [Mass ratio] 16 {ratio} Normal 0 - 30 {ratio} [facility]; [facility] Work Phone: Laboratory - Hematology and Cell countson 09-24-2023 Basophils (Bld) [#/Vol] 0.01 {x10EE3/UL} Normal 0.00 - 0.10 {x10EE3/UL} [facility]; [facility] Work Phone: Basophils/100 WBC (Bld) 0.3 % Normal 0.0 - 2.0 % [facility]; [facility] Work Phone: Eosinophils (Bld) [#/Vol] 0.09 {x10EE3/UL} Normal 0.00 - 0.50 {x10EE3/UL} [facility]; [facility] Work Phone: Eosinophils/100 WBC (Bld) 1.7 % Normal 0.0 - 7.0 % [facility]; [facility] Work Phone: Erythrocyte distribution width (RBC) [Ratio] 14.1 % Normal 12.0 - 15.6 % [facility]; [facility] Work Phone: ESR (Bld) [Velocity] 25 mm/h Abnormal 0 - 20 mm/h Eas [facility]; [facility] Work Phone: HbA1c (Bld) [Mass fraction] 6.1 % Normal 0.0 - 6.5 % [facility]; [facility], [facility] Work Phone: Hematocrit (Bld) [Volume fraction] 38.1 % Abnormal 40.0 - 52.0 % [facility]; [facility] Work Phone: Hemoglobin (Bld) [Mass/Vol] 12.9 g/dL Abnormal 13.0 - 17.5 g/dL [facility]; [facility] Work Phone: Lymphocytes (Bld) [#/Vol] 1.59 {x10EE3/UL} Normal 0.80 - 2.80 {x10EE3/UL} [facility]; [facility] Work Phone: Lymphocytes/100 WBC (Bld) 28.8 % Normal 20.0 - 45.0 % [facility]; [facility] Work Phone: MCH (RBC) [Entitic mass] 29 pg Normal 27 - 33 pg [facility]; [facility] Work Phone: MCHC (RBC) [Mass/Vol] 34 {X10_3} Normal 32 - 36 {X10_3} [facility]; [facility] Work Phone: MCV (RBC) [Entitic vol] 86 fL Normal 81 - 98 fL [facility]; [facility] Work Phone: Monocytes (Bld) [#/Vol] 0.36 {x10EE3/UL} Normal 0.20 - 1.00 {x10EE3/UL} [facility]; [facility]. Work Phone: Monocytes/100 WBC (Bld) 6.5 % Normal 0.0 - 10.0 % [facility]; [facility], [facility]. Work Phone: Morphology Leoncio (Bld) [Interp] N/A Normal [facility]; [facility] Work Phone: Neutrophils (Bld) [#/Vol] 3.46 {x10EE3/UL} Normal 1.50 - 7.10 {x10EE3/UL} [facility]; [facility] Work Phone: Neutrophils/100 WBC (Bld) 62.8 % Normal 46.0 - 76.0 % [facility]; [facility] Work Phone: Platelet mean volume (Bld) [Entitic vol] 7.9 fL Normal 6.4 - 10.5 fL [facility]; [facility] Work Phone: Platelets (Bld) [#/Vol] 183 {x10EE3/UL} Normal 150 - 450 {x10EE3/UL} [facility]; [facility], [facility] Work Phone: RBC (Bld) [#/Vol] 4.43 {x_10EE6/UL} Abnormal 4.50 - 6.00 {x_10EE6/UL } [facility]; [facility], [facility]. Work Phone: WBC (Bld) [#/Vol] 5.5 {x_10EE3/UL} Normal 4.5 - 10.8 {x_10EE3/UL } [facility].; [facility], [facility]. Work Phone: WBC (Bld) [#/Vol] 500 10*3/uL Abnormal [facility].; [facility], [facility] Work Phone: Laboratory - Microbiology an d Antimicrobial susceptibilityon 09-24-2023 Bacteria identified Cx Nom (Unsp spec) 1+ Normal [facility]; [facility], [facility] Work Phone: Laboratory - Specimen inform ationon 09-24-2023 Clarity (U) clear Normal [facility]; [facility]. Work Phone: Color (U) jas Normal [facility].; [facility]. Work Phone: Specimen type Nom (Spec) Void Normal [facility].; [facility]. Work Phone: Laboratory - Urinalysison Crystals LM Nom (Urine sed) NONE Normal [facility].; [facility], [facility]. Work Phone: Nitrite Ql (U) Negative Normal [facility].; [facility], [facility]. Work Phone: Yeast LM Ql (Urine sed) NONE Normal [facility].; [facility], [facility]. Work Phone: No Panel Informationon 09-23 AGE 78 {years} Normal [facility].; [facility], [facility]. Work Phone: ALK PHOS 117 U/L Abnormal 46 - 116 U/L [facility]; [facility], [facility]. Work Phone: Amorphous 1+ Normal [facility].; [facility]. Work Phone: Blood 25 Abnormal [facility].; [facility], [facility]. Work Phone: Casts NONE Normal [facility].; [facility]. Work Phone: CBC + DIFF Normal [facility].; [facility], [employer] Work Phone: CMP with eGFR Normal [facility] HospitalKal[employer]; [facility]. Work Phone: Epi Cells NONE Normal [facility] [employer] [facility].; [facility], [facility] Work Phone: Ketone Negative Normal [facility] IllO[facility].; [facility], [employer] Work Phone: MANUAL DIFF N/A Normal [facility].; [facility], [facility] Work Phone: Microscopic SEE BELOW Normal [facility] [employer] [facility].; [facility] [employer] [facility], [employer] Work Phone: Mucous 2+ Normal [facility] IllO[facility].; [facility] [employer] [facility], [employer] Work Phone: Rbc 10-15 Normal 0 - 3 [facility] IllOcapi.; [email or web address] [facility] [employer] [facility], [employer] Work Phone: Sp Zillah 1.020 Normal [facility] [employer] [facility] IllO[facility].; [email or web address] [facility] [employer] [facility], [employer] Work Phone: Urobilinog NORM Normal [facility] IllOcap[facility].; [facility] [employer] [facility], [employer] Work Phone: Wbc 16-25 Normal 0 - 5 [facility] [employer] [facility] IllO[facility].; [email or web address] [facility] [employer] [facility], [employer] Work Phone: N/A Normal [facility] IllOcapi.; [email or web address] [facility] [employer] [facility], [employer] Work Phone: Void Normal [facility] [employer] [facility] IllOcap[facility].; DUNLAP - [facility] [employer] [facility], [employer] Work Phone: jas Normal [facility] [employer] [facility] IllOcapi.; [email or web address] [facility] [employer] [facility], [employer] Work Phone: clear Normal [facility] [employer] [facility] IllOcapi.; [email or web address] [facility] [employer] [facility], [employer] Work Phone: 5 Normal [facility] IllOcap[facility].; DUNLAP Ryan [facility] [employer] [facility], [employer] Work Phone: 15 Abnormal [facility] [employer] [facility], Inc.; [facility], [facility] Work Phone: Negative Normal [facility] [employer] [facility], Inc.; [facility], Inc. Work Phone: 25 Abnormal [facility], [facility].; [facility], [employer] Work Phone: NORM Normal [facility], [facility].; [facility], [employer] Work Phone: 1.020 Normal [facility], [facility].; [facility], [facility] Work Phone: 500 Abnormal [facility] [employer] [facility], Inc.; [facility], Inc[employer] Work Phone: SEE BELOW Normal [facility] [employer] [facility], Inc.; [facility] [employer] [facility], [employer] Work Phone: 16-25 Normal 0 - 5 [facility], Inc.; DUNLAP - [facility], Inc[facility] Work Phone: 10-15 Normal 0 - 3 [facility], Inc.; [facility], Inc. Work Phone: NONE Normal [facility] [employer] [facility], Inc.; [employer] [facility] [employer] [facility], [employer] Work Phone: 1+ Normal [facility] Chron[facility] IllSn[employer] Inc.; [facility], Inc. Work Phone: 2+ Normal [facility], Inc.; [employer] Ryan [facility] [employer] [facility], [employer]. Work Phone: 117 U/L Abnormal 46 - 116 U/L [facility] [employer] [facility] IllOcapi.; [email or web address] [facility] [employer] [facility], [employer]. Work Phone: 11 mmol/L Normal 10 - 20 mmol/L [facility] [employer] [facility], Inc.; [employer] Ryan [facility] [employer] [facility], Inc. Work Phone: 78 {years} Normal [facility], Inc.; [facility], [facility]. Work Phone: 6.1 % Normal 0.0 - 6.5 % [facility]ics[facility].; [facility], [facility]. Work Phone: 2.4 pg/mL Normal 2.3 - 4.1 pg/mL [facility]icsSn[facility] [employer].; [facility], [facility]. Work Phone: 331 ng/dL Normal 193 - 824 ng/dL [facility]icsSn[facility].; [facility], [facility]. Work Phone: Basophil percentageOrdered B y: Amol Tang on 08-13-2023 Creatinine [Mass/Vol] 1.3 mg/dL Normal 0.70 - 1.30 mg/dL [facility] Laboratory - Chemistry and C hemistry - challengeOrdered By: Amol Tang on 08-13-2023 GFR/1.73 sq M.predicted among non-blacks MDRD (S/P/Bld) [Vol rate/Area] 55.0000 mL/min/{1.73_m2} Abnormal [facility] No Panel Informationon 08-12 1.3 mg/dL Normal 0.70 - 1.30 mg/dL [facility]ics[facility].; [facility], [facility] Work Phone: 55.0000 mL/min Abnormal [facility].; [facility], [facility]. Work Phone: Laboratory - Chemistry and C hemistry - challengeon 06-20-2023 Bilirubin Ql (U) Negative Normal [facility].; [facility], [facility]. Ketones Ql (U) Negative Normal [facility].; [facility], Inc[employer] pH (U) 6.0 [pH] Normal [facility].; [facility], Inc[employer] Prostate specific Ag [Mass/Vol] 26.22 ng/mL Abnormal 0.00 - 4.00 ng/mL [facility].; [facility], Inc[facility] Specific gravity (U) [Rel density] 1.015 Normal [facility]icsSn[facility].; [facility], [facility]. Laboratory - Hematology and Cell countson 06-20-2023 Hemoglobin Ql (U) ++ Abnormal [facility], [facility].; [facility], [employer] Laboratory - Specimen inform ationon 06-20-2023 Appearance (U) cLEAR Normal [facility].; [facility], [employer] Color (U) yELLOW Normal [facility].; [facility], [employer] Laboratory - Urinalysison Glucose Test strip (U) [Mass/Vol] Negative Normal [facility].; [facility], Inc[employer] Leukocyte esterase Test strip Ql (U) Negative Normal [facility].; [facility], Inc[employer] Nitrite Ql (U) Negative Normal [facility].; [facility], Inc[employer] Protein Ql (U) Negative Normal [facility].; [facility], Inc. No Panel Informationon 06-20 UA - ODOR Negative Normal [facility].; [facility], Inc[facility] UA - UROBILIGEN 0.2 Normal [facility].; [facility], [facility]. 0.2 Normal [facility].; [facility] Negative Normal [facility].; [facility] Laboratory - Chemistry and C hemistry - challengeon 05-10-2022 Cholesterol [Mass/Vol] 184 mg/dL Normal 0 - 240 mg/dL [facility].; [facility] Work Phone: Cholesterol in HDL [Mass or moles/Vol] 34 mg/dL Abnormal 40 - 60 mg/dL [facility].; [facility] Work Phone: Cholesterol in LDL [Mass/Vol] 128 mg/dL Normal 0 - 129 mg/dL [facility]; [facility] Work Phone: Cholesterol.total/Ch olesterol in HDL [Mass ratio] 5.4 {ratio} Abnormal 0.0 - 5.0 [facility]; [facility] Work Phone: Lipid 1996 panel Normal [facility]; [facility] Work Phone: Triglyceride [Mass/Vol] 111 mg/dL Normal 0 - 150 mg/dL [facility]; [facility] Work Phone: Laboratory - Chemistry and C hemistry - challengeon 11-08-2021 Albumin [Mass/Vol] 3.4 g/dL Normal 3.4 - 5.0 g/dL [facility]; [facility] Work Phone: Albumin [Mass/Vol] 0.9 g/dL Normal 0.9 - 1.6 [facility]; [facility] Work Phone: ALT [Catalytic activity/Vol] 24 U/L Normal 16 - 63 U/L [facility]; [facility] Work Phone: Anion gap [Moles/Vol] 8 mmol/L Abnormal 10 - 20 mmol/L [facility]; [facility] Work Phone: AST [Catalytic activity/Vol] 17 U/L Normal 15 - 37 U/L [facility]; [facility] Work Phone: Bilirubin [Mass/Vol] 0.2 mg/dL Normal 0.2 - 1 .0 mg/dL [facility]; [facility] Work Phone: Calcium [Mass/Vol] 9.3 mg/dL Normal 8.5 - 10. 1 mg/dL [facility]; [facility] Work Phone: Chloride [Moles/Vol] 110 mmol/L Abnormal 98 - 10 7 mmol/L [facility]; [facility] Work Phone: CO2 [Moles/Vol] 30.0 mmol/L Normal 21.0 - 32.0 mmol/L [facility]; [facility] Work Phone: Creatinine [Mass/Vol] 1.22 mg/dL Normal 0.70 - 1.30 mg/dL [facility]; [facility] Work Phone: GFR/1.73 sq M.predicted among blacks MDRD (S/P/Bld) [Vol rate/Area] mL/min/{1.73_m2} Normal 60 - 999 {ML/MINUTE} [facility]; [facility]. Work Phone: GFR/1.73 sq M.predicted MDRD (S/P/Bld) [Vol rate/Area] 58 {ML/MINUTE} Abnormal 60 - 999 {ML/MINUTE} [facility].; [facility]. Work Phone: Globulin (S) [Mass/Vol] 3.9 g/dL Abnormal 1.5 - 3.8 g/dL [facility]; [facility]. Work Phone: Glucose [Mass/Vol] 89 mg/dL Normal 74 - 106 mg/dL [facility]; [facility] Work Phone: Potassium [Moles/Vol] 4.2 mmol/L Normal 3.5 - 5.1 mmol/L [facility]; [facility] Work Phone: Protein [Mass/Vol] 7.3 g/dL Normal 6.4 - 8.2 g/dL [facility]; [facility] Work Phone: Sodium [Moles/Vol] 144 mmol/L Normal 136 - 145 mmol/L [facility]; [facility] Work Phone: TSH Qn 3.77 m[IU]/L Abnormal 0.35 - 3.74 {uIU/ml} [facility]; [facility] Work Phone: Urea nitrogen [Mass/Vol] 26 mg/dL Abnormal 7 - 18 mg/dL [facility]; [facility] Work Phone: Urea nitrogen/Creatinine [Mass ratio] 21 {ratio} Normal 0 - 30 {ratio} [facility]; [facility] Work Phone: Laboratory - Hematology and Cell countson 11-08-2021 Basophils (Bld) [#/Vol] 0.00 {x10EE3/UL} Normal 0.00 - 0.10 {x10EE3/UL} [facility]; [facility] Work Phone: Basophils/100 WBC (Bld) 0.5 % Normal 0.0 - 2.0 % [facility]; [facility] Work Phone: Eosinophils (Bld) [#/Vol] 0.10 {x10EE3/UL} Normal 0.00 - 0.50 {x10EE3/UL} [facility]; [facility] Work Phone: Eosinophils/100 WBC (Bld) 2.9 % Normal 0.0 - 7.0 % [facility]; [facility] Work Phone: Erythrocyte distribution width (RBC) [Ratio] 14.1 % Normal 12.0 - 15.6 % [facility]; [facility] Work Phone: Hematocrit (Bld) [Volume fraction] 39.0 % Abnormal 40.0 - 52.0 % [facility]; [facility] Work Phone: Hemoglobin (Bld) [Mass/Vol] 13.1 g/dL Normal 13.0 - 17.5 g/dL [facility]; [facility] Work Phone: Lymphocytes (Bld) [#/Vol] 1.60 {x10EE3/UL} Normal 0.80 - 2.80 {x10EE3/UL} [facility]; [facility] Work Phone: Lymphocytes/100 WBC (Bld) 33.4 % Normal 20.0 - 45.0 % [facility]; [facility] Work Phone: MCH (RBC) [Entitic mass] 29 pg Normal 27 - 33 pg [facility]; [facility] Work Phone: MCHC (RBC) [Mass/Vol] 33 {X10_3} Normal 32 - 36 {X10_3} [facility]; [facility], [facility] Work Phone: MCV (RBC) [Entitic vol] 87 fL Normal 81 - 98 fL [facility]; [facility] Work Phone: Monocytes (Bld) [#/Vol] 0.40 {x10EE3/UL} Normal 0.20 - 1.00 {x10EE3/UL} [facility]; [facility]. Work Phone: Monocytes/100 WBC (Bld) 8.7 % Normal 0.0 - 10.0 % [facility]; [facility]. Work Phone: Morphology Leoncio (Bld) [Interp] N/A Normal [facility]; [facility]. Work Phone: Neutrophils (Bld) [#/Vol] 2.50 {x10EE3/UL} Normal 1.50 - 7.10 {x10EE3/UL} [facility].; [facility]. Work Phone: Neutrophils/100 WBC (Bld) 54.5 % Normal 46.0 - 76.0 % [facility]; [facility]. Work Phone: Platelet mean volume (Bld) [Entitic vol] 8.1 fL Normal 6.4 - 10.5 fL [facility]; [facility]. Work Phone: Platelets (Bld) [#/Vol] 161 {x10EE3/UL} Normal 150 - 450 {x10EE3/UL} [facility].; [facility]. Work Phone: RBC (Bld) [#/Vol] 4.51 {x_10EE6/UL} Normal 4.50 - 6.00 {x_10EE6/UL } [facility].; [facility], [facility]. Work Phone: WBC (Bld) [#/Vol] 4.6 {x_10EE3/UL} Normal 4.5 - 10.8 {x_10EE3/UL } [facility] [facility] Work Phone: No Panel Informationon 11-08 AGE 76 {years} Normal [facility].; [facility], [facility]. Work Phone: ALK PHOS 103 U/L Normal 46 - 116 U/L [facility].; [facility], [facility]. Work Phone: CBC + DIFF Normal [facility].; [facility]. Work Phone: CMP with eGFR Normal [facility]icsO[facility].; [employer] [facility], [employer]. Work Phone: MANUAL DIFF N/A Normal [facility].; [employer] [facility]. Work Phone: N/A Normal [facility].; [employer] [facility] Work Phone: 103 U/L Normal 46 - 116 U/L [facility].; [employer] [facility] Work Phone: 8 mmol/L Abnormal 10 - 20 mmol/L [facility].; [employer] [facility]. Work Phone: 76 {years} Normal [facility].; [employer] [facility]. Work Phone: CT ANGIOGRAPHY CHEST W/CONTR Denisha 04-19-2021 CT ANGIOGRAPHY CHEST W/CONTRAST ORIGINAL EXAMINATION: CTA CHEST WITH CONTRAST GATED [id number] TECHNIQUE: CTA of the chest was performed after the administration of intravenous contrast. Multiplanar reformatted images are provided for review. MIP images are provided for review. Dose modulation, iterative reconstruction, and/or weight based adjustment of the mA/kV was utilized to reduce the radiation dose to as low as reasonably achievable. COMPARISON: None. HISTORY: ORDERING SYSTEM PROVIDED HISTORY: Reason for Exam: prosthetic valve stenosis FINDINGS: Initial images were obtained on 03/03/2021 with a gated prospective protocol used. The patient returned 04/07/2021 for repeat images using the TAVR protocol for retrospective gating to properly evaluate valve. 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 Retrospective gating with multiplanar reformats demonstrates near complete coaptation of the leaflets with normal excursion during systole. THORACIC AORTA No aneurysm. Plaque: Mild atherosclerosis. No dissection. CARDIAC MORPHOLOGY CORONARY CALCIFICATIONS: Moderate HEART: Mild cardiomegaly. PERICARDIUM: Contour preserved. EFFUSION: None THICKENING: None. CALCIFICATION: None AV: CUSPS: Tricuspid THICKENING: None. CALCIFICATION: None MV: THICKENING: Mild thickening. CALCIFICATION: Moderate to marked annulus EXTRACARDIAC MAIN PA: Non-dilated. No embolus centrally. LUNGS: No consolidation. ABDOMEN: Unremarkable LYMPHATIC: No hilar or mediastinal adenopathy. BONES: No suspicious osseous lesion. Sternal wires are intact. IMPRESSION: 1. 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 2. Moderate to marked mitral valve annulus calcification. RECOMMENDATIONS: Unavailable Interpreted by: Edinson Tolbert MD Preliminary Report By: Edinson Tolbert MD Electronically signed By Edinson Tolbert MD Dictated Date: 04/19/2021 2:14:34 PM Prelim Date: 04/19/2021 2:37:19 PM Sign Date: 04/19/2021 2:37:19 PM Ordering Provider: GILBERT [place] [facility] ([place]) LABORATORYOrdered By: Amaury Bush on 03-03-2021 Creatinine [Mass/Vol] 1.24 mg/dL Invalid Interpretation Code 0.6 - 1.3 mg/dL [facility] Work Phone: GFR (AMB POC) 60 [facility] Work Phone: Lab Performed By LARS Desir [facility] Work Phone: Lab Performing Location [address] [place] [id number] [facility] Work Phone: CT HEAD OR BRAIN WITHOUT CON TRASTon 01-13-2021 CT HEAD OR BRAIN WITHOUT CONTRAST EXAMINATION: CT HEAD OR BRAIN WITHOUT CONTRAST HISTORY: ORDERING SYSTEM PROVIDED HISTORY: Cerebral hemorrhage suspected, TECHNOLOGIST PROVIDED HISTORY: Illness/Other Reason for exam: Cerebral hemorrhage suspected Encounter Type: Initial Additional signs and symptoms: Cerebral hemorrhage suspected ORDERING SYSTEM PROVIDED DIAGNOSIS CODES: I62.00 Subdural hemorrhage (HCC) COMPARISON: CT head without contrast, 08/06/2020. TECHNIQUE: CT examination of the head without IV contrast. Dose reduction techniques were achieved by using automated exposure control and/or adjustment of mA and/or kV according to patient size and/or use of iterative reconstruction technique. FINDINGS: Paranasal sinuses clear. Mastoid air cells clear. Skull base is intact. No skull lesion. There has been bilateral parietal craniotomies which are stable. Nasopharynx normal. Orbital contents normal. There is some dural thickening at the craniotomy sites which appears stable. No subdural hemorrhage. No significant extra-axial fluid collections. No mass effect. No shift of midline. No hydrocephalus. Mild brain atrophy stable. IMPRESSION: 1. There are postoperative changes from biparietal craniotomies. There is some dural thickening at the craniotomy sites which is stable. 2. No evidence of subdural hemorrhage or subdural fluid collections. No new intracranial hemorrhage. 3. No mass effect or shift of midline. [employer] Workstation ID: [id number] Dictated by: RADHA GONZALEZ on SunJan 13, 2021 10:18:13 PM EDT Transcribed by: ABELARDO ROSAS on SunJan 13, 2021 10:57:32 PM EDT Finalized by: RADHA GONZALEZ on SunJan 14, 2021 7:40:18 AM EDT Normal [facility] Comment on above: Order Comment: Injur y/Trauma or Illness?:Illness/Other How long have you had these symptoms (acute/chronic)?:Acute Reason for exam?:Cerebral hemorrhage suspected Type of Exam?:Initial Additional signs and symptoms?:Cerebral hemorrhage suspected Hemoglobin A1con 01-01-2021 Glucose [Mass/Vol] 128 mg/dL Normal [facility] Comment on above: Performed By: #### H BA1C #### [facility] Routine Lab [address] [place], [place] [address] HbA1c (Bld) [Mass fraction] 6.1 % High 4.3-5.6 [facility] Comment on above: Performed By: #### H BA1C #### [facility] Routine Lab [address] [place] [id number] Laboratory - Chemistry and C hemistry - challengeon 12-31-2020 Cholesterol [Mass/Vol] 205 mg/dL Normal 0 - 240 mg/dL [facility]; [facility] Work Phone: Cholesterol in HDL [Mass or moles/Vol] 33 mg/dL Abnormal 40 - 60 mg/dL [facility]; [facility] Work Phone: Cholesterol in LDL [Mass/Vol] 147 mg/dL Abnormal 0 - 129 mg/dL [facility]; [facility] Work Phone: Cholesterol.total/Ch olesterol in HDL [Mass ratio] 6.2 {ratio} Abnormal 0.0 - 5.0 [facility]; [facility] Work Phone: Glucose [Mass/Vol] 128 mg/dL Normal [facility]; [facility], [facility] Work Phone: Lipid 1996 panel Normal [facility]; [facility] Work Phone: Triglyceride [Mass/Vol] 125 mg/dL Normal 0 - 150 mg/dL [facility]; [facility]. Work Phone: Laboratory - Hematology and Cell countson 12-31-2020 HbA1c (Bld) [Mass fraction] 6.1 % Abnormal 4.3 - 5.6 % [facility]; [facility], [facility] Work Phone: No Panel Informationon 12-31 128 mg/dL Normal [facility]; [employer]. Work Phone: Laboratory - Microbiology an d Antimicrobial susceptibilityon 12-22-2020 SARS-CoV-2 (COVID-19) RNA CALE+probe Ql (Unsp spec) Negative Normal [facility] [employer] [facility].; [email or web address] [facility] [employer]. Work Phone: No Panel Informationon 12-22 SEND TO IC? YES Normal [facility] [email or web address] [facility] [employer]. Work Phone: Negative Normal [facility].; [email or web address] [facility] [employer]. Work Phone: YES Normal [facility].; [email or web address] [facility] [employer]. Work Phone: CT HEAD OR BRAIN WITHOUT CON TRASTOrdered By: Latif Buster on 08-06-2020 Prior bifrontal craniotomies. Resolution of previous right subdural/extraaxial fluid collection. Mild left cerebral convexity pachymeningeal thickening and/or chronic extraaxial fluid collection measuring up to 3 mm. No new intracranial hemorrhage. No midline shift or hydrocephalus. [employer] Workstation ID: [id number] [facility] EXAMINATION: CT HEAD OR BRAIN WITHOUT CONTRAST HISTORY: ORDERING SYSTEM PROVIDED HISTORY: Headache, chronic, no new features, TECHNOLOGIST PROVIDED HISTORY: Illness/Other Reason for exam: bleed follow up post 3 months, pt denies any lingering symptoms Encounter Type: Initial Additional signs and symptoms: n ORDERING SYSTEM PROVIDED DIAGNOSIS CODES: I62.00 Subdural hemorrhage (HCC) COMPARISON: Head CTs dated 05/13/2020 and 03/30/2020. TECHNIQUE: CT examination of the head without IV contrast. Dose reduction techniques were achieved by using automated exposure control and/or adjustment of mA and/or kV according to patient size and/or use of iterative reconstruction technique. FINDINGS: Postoperative changes of right frontal craniotomy with subjacent pachymeningeal thickening. Resolution of previously described subdural hematoma/extraaxial fluid. Postoperative changes of left frontal craniotomy with subjacent pachymeningeal thickening and/or chronic subdural hematoma/extraaxial fluid measuring up to 3 mm. No new intracranial hemorrhage. Elsewhere, prominence of the cortical sulci is compatible with mild age-related cerebral volume loss. No hydrocephalus. No midline shift. Mild central white matter chronic small-vessel ischemic changes. No CT evidence of large acute territorial infarction. Visualized paranasal sinuses are well aerated. Mastoids are clear. [facility] Interface, Rad In Fu ji Speechq - 08/06/2020 6:16 PM EDT EXAMINATION: CT HEAD OR BRAIN WITHOUT CONTRAST HISTORY: ORDERING SYSTEM PROVIDED HISTORY: Headache, chronic, no new features, TECHNOLOGIST PROVIDED HISTORY: Illness/Other Reason for exam: bleed follow up post 3 months, pt denies any lingering symptoms Encounter Type: Initial Additional signs and symptoms: n ORDERING SYSTEM PROVIDED DIAGNOSIS CODES: I62.00 Subdural hemorrhage (HCC) COMPARISON: Head CTs dated 05/13/2020 and 03/30/2020. TECHNIQUE: CT examination of the head without IV contrast. Dose reduction techniques were achieved by using automated exposure control and/or adjustment of mA and/or kV according to patient size and/or use of iterative reconstruction technique. FINDINGS: Postoperative changes of right frontal craniotomy with subjacent pachymeningeal thickening. Resolution of previously described subdural hematoma/extraaxial fluid. Postoperative changes of left frontal craniotomy with subjacent pachymeningeal thickening and/or chronic subdural hematoma/extraaxial fluid measuring up to 3 mm. No new intracranial hemorrhage. Elsewhere, prominence of the cortical sulci is compatible with mild age-related cerebral volume loss. No hydrocephalus. No midline shift. Mild central white matter chronic small-vessel ischemic changes. No CT evidence of large acute territorial infarction. Visualized paranasal sinuses are well aerated. Mastoids are clear. IMPRESSION: Prior bifrontal craniotomies. Resolution of previous right subdural/extraaxial fluid collection. Mild left cerebral convexity pachymeningeal thickening and/or chronic extraaxial fluid collection measuring up to 3 mm. No new intracranial hemorrhage. No midline shift or hydrocephalus. ST/[employer]r Workstation ID: [id number] [facility] CT HEAD OR BRAIN WITHOUT CON TRASTon 08-06-2020 CT HEAD OR BRAIN WITHOUT CONTRAST EXAMINATION: CT HEAD OR BRAIN WITHOUT CONTRAST HISTORY: ORDERING SYSTEM PROVIDED HISTORY: Headache, chronic, no new features, TECHNOLOGIST PROVIDED HISTORY: Illness/Other Reason for exam: bleed follow up post 3 months, pt denies any lingering symptoms Encounter Type: Initial Additional signs and symptoms: n ORDERING SYSTEM PROVIDED DIAGNOSIS CODES: I62.00 Subdural hemorrhage (HCC) COMPARISON: Head CTs dated 05/13/2020 and 03/30/2020. TECHNIQUE: CT examination of the head without IV contrast. Dose reduction techniques were achieved by using automated exposure control and/or adjustment of mA and/or kV according to patient size and/or use of iterative reconstruction technique. FINDINGS: Postoperative changes of right frontal craniotomy with subjacent pachymeningeal thickening. Resolution of previously described subdural hematoma/extraaxial fluid. Postoperative changes of left frontal craniotomy with subjacent pachymeningeal thickening and/or chronic subdural hematoma/extraaxial fluid measuring up to 3 mm. No new intracranial hemorrhage. Elsewhere, prominence of the cortical sulci is compatible with mild age-related cerebral volume loss. No hydrocephalus. No midline shift. Mild central white matter chronic small-vessel ischemic changes. No CT evidence of large acute territorial infarction. Visualized paranasal sinuses are well aerated. Mastoids are clear. IMPRESSION: Prior bifrontal craniotomies. Resolution of previous right subdural/extraaxial fluid collection. Mild left cerebral convexity pachymeningeal thickening and/or chronic extraaxial fluid collection measuring up to 3 mm. No new intracranial hemorrhage. No midline shift or hydrocephalus. /[facility] Workstation ID: [id number] Dictated by: SEAN ENRIQUEZ on SunAug 06, 2020 2:16:32 PM EDT Transcribed by: PPAI PORTILLO on SunAug 06, 2020 2:21:04 PM EDT Finalized by: SEAN ENRIQUEZ on SunAug 06, 2020 6:14:10 PM EDT Normal [facility] Comment on above: Order Comment: Injur y/Trauma or Illness?:Illness/Other How long have you had these symptoms (acute/chronic)?:Acute Reason for exam?:bleed follow up post 3 months, pt denies any lingering symptoms Type of Exam?:Initial Additional signs and symptoms?:n Nisa 05-24-2020 Urea nitrogen [Mass/Vol] 13 mg/dL Normal 8-23 [facility] Comment on above: Performed By: #### L 100.0125, L100.0110 #### [facility] [address] [place] [address] CREAToguanakito 05-24-2020 Creatinine [Mass/Vol] 0.87 mg/dL Normal 0.70-1.20 [facility] Comment on above: Performed By: #### L 100.0125, L100.0110 #### [facility] - [facility]ATORY [address] [place] [id number] eGFR if AFR CRISTIAN > 60 ml/min/1.73m2 Normal [facility] Comment on above: Result Comment: eGFR >= 60 Indicates normal kidney function. * eGFR IS AN ESTIMATE * (AFR CRISTIAN = ) (non-AFR AM = NON-) MDRD calculation used in the eGFR should not be used to dose medications. For further limitations of the eGFR please refer to the Physician Website or the National Kidney Disease Education Program website (www.nkdep.nih.gov). Performed By: #### L 100.0125, L100.0110 #### [facility] - [facility]AT[facility] [address] [place] [id number] eGFR nonAFR Cristian > 60 ml/Min/1.73m2 Normal [facility] Comment on above: Performed By: #### L 100.0125, L100.0110 #### [facility]AT[facility] [address] [place] [id number] ANGIO ABD/PEL W/WO CONTRA STon 05-24-2020 CT ANGIO ABD/PEL W/WO CONTRAST [address] [address] Name: MICHAEL EDMOND Phys: Allan KAPLAN M.D. : 43 Age: 75 Sex: M Acct: [id number] Loc: RAD CT Exam Date: 05/24/20 Status: [facility] Radiology No.: [id number] Unit Number: [id number] Exam # Type/Exam [id number] CT / CT ANGIO ABD/PEL W/WO CONTRAST EXAM DESCRIPTION: CT ANGIO ABD/PEL W/WO CONTRAST CLINICAL HISTORY: Arterial stricture TECHNIQUE: Routine helical CT images were obtained from the lung bases through the pelvis after the uneventful administration of IV contrast. Coronal and sagittal reformats were obtained. Dose lowering techniques were utilized to include automated exposure control, adjustment of the mA and/or kV according to patient size, and use of iterative reconstruction technique. 3-D reformats were obtained on a separate workstation. COMPARISON: None available FINDINGS: The size, density, and morphology of the liver, spleen, adrenals, kidneys, pancreas and unopacified loops of bowel are unremarkable. Nonobstructive 2 mm calcification near the midpole of the left kidney. Atherosclerosis is noted throughout the aorta. The opacified aorta demonstrates normal size and morphology without aneurysmal dilation or dissection. There are no enlarged lymph nodes by pathologic size criteria. There is no free fluid within the pelvis. The bladder and pelvic organs have an unremarkable CT appearance. Bilateral fat-containing inguinal hernias left larger than right. The osseous structures are without gross lytic or sclerotic lesion. The lung bases are clear. 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 Mild 10% narrowing at the origin of the superior mesenteric artery. The left renal artery is patent. Approximately 40-50% narrowing at the origin of the right renal artery. IMPRESSION: 1. 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 2. 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 Electronically signed by: Nick Orozco MD 05/24/2020 6:40 PM [employer] < > Reported By: NICK OROZCO M.D. Signed In PowerScribe By: NICK OROZCO M.D. << Signature on File>> Reported By: NICK OROZCO M.D. Signed By: NICK OROZCO M.D. Tests performed at: [address] [address] Normal [facility] Metabolic Panelon 05-24-2020 Creatinine [Mass/Vol] 0.87 mg/dL 0.70 - 1.20 mg/dL [facility] GFR/1.73 sq M predicted among blacks MDRD (S/P/Bld) [Vol rate/Area] > 60 ml/min/1.73m2 [facility] GFR/1.73 sq M predicted among non-blacks MDRD (S/P/Bld) [Vol rate/Area] > 60 ml/Min/1.73m2 [facility] Urea nitrogen [Mass/Vol] 13 mg/dL 8 - 23 mg/dL [facility] Otheron 05-24-[address] [facility]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 challengeon 12-11-2019 Troponin I.cardiac Qn 0.02 ng/mL Normal 0.00 - 0.05 ng/mL [facility] [place]; [facility] Work Phone: Laboratory - Chemistry and C hemistry - challengeon 12-10-2019 Albumin [Mass/Vol] 4.0 g/dL Normal 3.4 - 4.8 g/dL [facility] [place]; [facility]. Work Phone: Albumin [Mass/Vol] 1.2 g/dL Normal 0.9 - 1.6 [facility]; [facility] Work Phone: ALT [Catalytic activity/Vol] 20 U/L Normal 10 - 40 U/L [facility] [place]; [facility] Work Phone: Anion gap [Moles/Vol] 10 mmol/L Normal 10 - 20 mmol/L [facility] [place]; [facility]. Work Phone: AST [Catalytic activity/Vol] 16 U/L Normal 13 - 39 U/L [facility] [place]; [facility] Work Phone: Bilirubin [Mass/Vol] 0.9 mg/dL Normal 0.0 - 1 .5 mg/dL [facility] [place]; [facility] Work Phone: Calcium [Mass/Vol] 9.7 mg/dL Normal 8.6 - 10. 2 mg/dL [facility] [place]; [facility] Work Phone: Chloride [Moles/Vol] 102 mmol/L Normal 98 - 10 7 mmol/L [facility] [place]; [facility] Work Phone: CO2 [Moles/Vol] 27.8 mmol/L Normal 21.0 - 31.0 mmol/L [facility] [place]; [facility] Work Phone: Creatinine [Mass/Vol] 1.1 mg/dL Normal 0.7 - 1.3 mg/dL [facility] [place]; [facility] Work Phone: GFR/1.73 sq M.predicted among blacks MDRD (S/P/Bld) [Vol rate/Area] mL/min/{1.73_m2} Normal 60 - 999 {ML/MINUTE} [facility]; [facility] Work Phone: GFR/1.73 sq M.predicted MDRD (S/P/Bld) [Vol rate/Area] mL/min/{1.73_m2} Normal 60 - 999 {ML/MINUTE} [facility]; [facility], [facility] Work Phone: Globulin (S) [Mass/Vol] 3.3 g/dL Normal 1.5 - 3.8 g/dL [facility]; [facility], [facility] Work Phone: Glucose [Mass/Vol] 114 mg/dL Abnormal 74 - 106 mg/dL [facility]; [facility] Work Phone: Lactate [Mass/Vol] 0.7 mmol/L Normal 0.5 - 2.0 mmol/L [facility]; [facility] Work Phone: Natriuretic peptide B (Bld) [Mass/Vol] 298 pg/mL Abnormal 1 - 100 pg/mL [facility]; [facility] Work Phone: Potassium [Moles/Vol] 3.9 mmol/L Normal 3.5 - 5.1 mmol/L [facility]; [facility] Work Phone: Protein [Mass/Vol] 7.3 g/dL Normal 6.4 - 8.3 g/dL [facility] [place]; [facility] Work Phone: Sodium [Moles/Vol] 136 mmol/L Normal 136 - 145 mmol/L [facility] [place]; [facility] Work Phone: Troponin I.cardiac Qn 0.02 ng/mL Normal 0.00 - 0.05 ng/mL [facility] [place]; [facility] Work Phone: Troponin I.cardiac Qn 0.01 ng/mL Normal 0.00 - 0.05 ng/mL [facility] [place]; [facility] Work Phone: Urea nitrogen [Mass/Vol] 14 mg/dL Normal 6 - 20 mg/dL [facility] [place]; [facility] Work Phone: Urea nitrogen/Creatinine [Mass ratio] 13 {ratio} Normal 0 - 30 {ratio} [facility] [place]; [facility] Work Phone: Laboratory - Hematology and Cell countson 12-10-2019 Basophils (Bld) [#/Vol] 0.00 {x10EE3/UL} Normal 0.00 - 0.10 {x10EE3/UL} [facility] [place]; [facility] Work Phone: Basophils/100 WBC (Bld) 0.2 % Normal 0.0 - 2.0 % [facility] [place]; [facility] Work Phone: Eosinophils (Bld) [#/Vol] 0.00 {x10EE3/UL} Normal 0.00 - 0.50 {x10EE3/UL} [facility] [place]; [facility] Work Phone: Eosinophils/100 WBC (Bld) 0.6 % Normal 0.0 - 7.0 % [facility] [place]; [facility] Work Phone: Erythrocyte distribution width (RBC) [Ratio] 13.8 % Normal 12.0 - 15.6 % [facility]; [facility] Work Phone: Hematocrit (Bld) [Volume fraction] 37.8 % Abnormal 40.0 - 52.0 % [facility] [place]; [facility] Work Phone: Hemoglobin (Bld) [Mass/Vol] 13.1 g/dL Normal 13.0 - 17.5 g/dL [facility] [place]; [facility] Work Phone: Lymphocytes (Bld) [#/Vol] 2.10 {x10EE3/UL} Normal 0.80 - 2.80 {x10EE3/UL} [facility] [place]; [facility], [facility] Work Phone: Lymphocytes/100 WBC (Bld) 27.0 % Normal 20.0 - 45.0 % [facility] [place]; [facility]. Work Phone: MCH (RBC) [Entitic mass] 30 pg Normal 27 - 33 pg [facility] [place]; [facility] Work Phone: MCHC (RBC) [Mass/Vol] 35 {X10_3} Normal 32 - 36 {X10_3} [facility].; [facility]. Work Phone: MCV (RBC) [Entitic vol] 86 fL Normal 81 - 98 fL [facility]; [facility] Work Phone: Monocytes (Bld) [#/Vol] 0.80 {x10EE3/UL} Normal 0.20 - 1.00 {x10EE3/UL} [facility].; [facility]. Work Phone: Monocytes/100 WBC (Bld) 10.2 % Abnormal 0.0 - 10.0 % [facility]; [facility]. Work Phone: Morphology Leoncio (Bld) [Interp] N/A Normal [facility]; [facility] Work Phone: Neutrophils (Bld) [#/Vol] 4.90 {x10EE3/UL} Normal 1.50 - 7.10 {x10EE3/UL} [facility].; [facility]. Work Phone: Neutrophils/100 WBC (Bld) 62.0 % Normal 46.0 - 76.0 % [facility]; [facility], [facility]. Work Phone: Platelet mean volume (Bld) [Entitic vol] 8.3 fL Normal 6.4 - 10.5 fL [facility]; [facility]. Work Phone: Platelets (Bld) [#/Vol] 183 {x10EE3/UL} Normal 150 - 450 {x10EE3/UL} [facility]; [facility]. Work Phone: RBC (Bld) [#/Vol] 4.38 {x_10EE6/UL} Abnormal 4.50 - 6.00 {x_10EE6/UL } [facility].; [facility], [facility]. Work Phone: WBC (Bld) [#/Vol] 8.0 {x_10EE3/UL} Normal 4.5 - 10.8 {x_10EE3/UL } [facility].; [facility], [facility]. Work Phone: No Panel Informationon 12-09 AGE 74 {years} Normal [facility] [place]; [facility]. Work Phone: ALK PHOS 85 U/L Normal 38 - 126 U/L [facility]; [facility]. Work Phone: CBC + DIFF Normal [facility]; [facility]. Work Phone: CMP with eGFR Normal [facility]; [facility]. Work Phone: D-DIMER QUANT 384 ng/mL Abnormal 0 - 230 ng/mL [facility]; [facility], [facility]. Work Phone: D-DIMER, QUANTITATIVE Normal [facility]; [facility], [facility]. Work Phone: MANUAL DIFF N/A Normal [facility]; [facility] Work Phone: N/A Normal [facility] [employer] [facility]; [email or web address] [facility] [employer] [facility]. Work Phone: 85 U/L Normal 38 - 126 U/L [facility]; [facility]. Work Phone: 10 mmol/L Normal 10 - 20 mmol/L [facility]; [facility]. Work Phone: 74 {years} Normal [facility].; [facility]. Work Phone: 384 ng/mL Abnormal 0 - 230 ng/mL [facility]; [facility]. Work Phone: Laboratory - Chemistry and C hemistry - challengeon 09-23-2018 Cholesterol [Mass/Vol] 209 mg/dL Abnormal 50 - 199 mg/dL [facility]; [facility] [employer] [facility]. Cholesterol in HDL [Mass/Vol] 43 mg/dL Normal 40 - 59 mg/dL [facility]; [facility]. Cholesterol in LDL [Mass/Vol] 130 mg/dL Abnormal 0 - 129 mg/dL [facility].; [facility] [employer] [facility]. Triglyceride [Mass/Vol] 178 mg/dL Abnormal 3 - 149 mg/dL [facility].; [facility] [employer] [facility]. Laboratory - Chemistry and C hemistry - challengeon 03-07-2017 Albumin BCP dye [Mass/Vol] 3.5 g/dL Normal 3.2 - 4.8 g/dL [facility] [employer] [facility]; DUNLAP Ryan [facility] [employer] [facility], [employer]. Albumin/Globulin [Mass ratio] 1.2 {ratio} Normal 0.9 - 1.6 {ratio} [facility].; DUNLAP Ryan [facility] [employer] [facility], [employer]. ALP [Catalytic activity/Vol] 103 U/L Normal 38 - 126 U/L [facility].; [place] [facility]. ALT No additional P-5'-P [Catalytic activity/Vol] 31 U/L Normal 12 - 55 U/L [facility]; [facility]. ALT With P-5'-P [Catalytic activity/Vol] 31 U/L Normal 12 - 55 U/L [facility].; [facility] AST [Catalytic activity/Vol] 18 U/L Normal 8 - 34 U/L [facility].; [facility]. AST With P-5'-P [Catalytic activity/Vol] 18 U/L Normal 8 - 34 U/L [facility]; [facility] Bilirubin [Mass/Vol] 0.4 mg/dL Normal 0.2 - 1 .2 mg/dL [facility]; [facility] Calcium [Mass/Vol] 8.9 mg/dL Normal 8.4 - 10. 1 mg/dL [facility]; [facility] Chloride [Moles/Vol] 108 mmol/L Normal 98 - 11 0 meq/L [facility]; [facility]. Cholesterol [Mass/Vol] 214 mg/dL Abnormal 50 - 199 mg/dL [facility]; [facility]. Cholesterol in HDL [Mass/Vol] 40 mg/dL Normal 40 - 59 mg/dL [facility]; [facility]. Cholesterol in LDL [Mass/Vol] 149 mg/dL Abnormal 0 - 129 mg/dL [facility].; [facility]. CO2 [Moles/Vol] 29 mmol/L Normal 22 - 32 meq/L [facility]; [facility] Creatinine [Mass/Vol] 1.05 mg/dL Normal 0.60 - 1.40 mg/dL [facility]; [facility] Free T4 index Calc [Mass/Vol] 1.21 {ratio} Normal 0.76 - 1.23 {ratio} [facility].; [facility], [facility]. Work Phone: GFR/1.73 sq M.predicted among blacks MDRD (S/P/Bld) [Vol rate/Area] mL/min/{1.73_m2} Normal [facility], [facility].; [facility], [facility]. Work Phone: GFR/1.73 sq M.predicted among non-blacks MDRD (S/P/Bld) [Vol rate/Area] mL/min/{1.73_m2} Normal [facility].; [facility], [facility]. Work Phone: Globulin (S) [Mass/Vol] 3.0 g/dL Normal 1.5 - 3.8 g/dL [facility].; [facility], [facility]. Glucose [Mass/Vol] 85 mg/dL Normal 82 - 115 mg/dL [facility].; [facility], [facility]. Iron [Mass/Vol] 118 ug/dL Normal 49 - 181 ug/dL [facility].; [facility], [facility]. Iron binding capacity [Mass/Vol] 347 ug/dL Normal 250 - 500 ug/dL [facility].; [facility], [facility]. Iron saturation [Mass fraction] 34 % Normal [facility].; [facility], [facility]. Potassium [Moles/Vol] 4.2 mmol/L Normal 3.5 - 5.0 meq/L [facility].; [facility], [facility]. Protein [Mass/Vol] 6.5 g/dL Normal 6.0 - 8.5 g/dL [facility], [facility].; [facility], [facility]. Sodium [Moles/Vol] 143 mmol/L Normal 136 - 145 meq/L [facility] And ClinicsSn[facility] T[facility].; [facility], [facility]. T4 [Mass/Vol] 8.8 ug/dL Normal 4.7 - 11.4 ug/dL [facility]; [facility] Work Phone: Triglyceride [Mass/Vol] 126 mg/dL Normal 3 - 149 mg/dL [facility]; [facility] TSH Qn 2.010 m[IU]/L Normal 0.360 - 3.740 {mcIU/mL} [facility]; [facility] Urea nitrogen [Mass/Vol] 16.0 mg/dL Normal 8.0 - 22.0 mg/dL [facility]; [facility] Urea nitrogen/Creatinine [Mass ratio] 15.2 {ratio} Normal 10.0 - 22.0 {ratio} [facility]; [facility] Laboratory - Hematology and Cell countson 03-07-2017 Basophils (Bld) [#/Vol] 0.00 10 Normal 0.00 - 0.[address] [place], [place] [address]Sn[employer] [facility]; [facility] Work Phone: Basophils/100 WBC (Bld) 1.0 % Normal 0.0 - 2.5 % [facility]; [facility] Work Phone: Eosinophils (Bld) [#/Vol] 0.20 10 Normal 0.00 - 0.[address] [place], [place] [address]Sn[employer] [facility]; [facility] Work Phone: Eosinophils/100 WBC (Bld) 3.4 % Normal 0.0 - 6.0 % [facility]; [facility] Work Phone: Erythrocyte distribution width (RBC) [Ratio] 13.6 % Normal 11.5 - 15.5 % [facility]; [facility] Hematocrit (Bld) [Volume fraction] 41.0 % Normal 40.0 - 52.0 % [facility].; [facility], [facility]. Hemoglobin (Bld) [Mass/Vol] 13.6 g/dL Normal 13.0 - 17.5 g/dL [facility].; [facility], [facility] Lymphocytes (Bld) [#/Vol] 1.70 10 Normal 0.90 - 4.32 10 [facility].; [facility], [facility]. Work Phone: Lymphocytes/100 WBC (Bld) 37.3 % Normal 20.0 - 40.0 % [facility].; [facility], [facility]. Work Phone: MCH (RBC) [Entitic mass] 29.6 pg Normal 27.0 - 33.0 pg [facility]ics[facility].; [facility], [facility]. MCHC (RBC) [Mass/Vol] 33.2 g/dL Normal 32.0 - 36.0 g/dL [facility].; [facility], [facility]. MCV (RBC) [Entitic vol] 89.0 fL Normal 81.0 - 100.0 fL [facility]icsSn[facility].; [facility], [facility]. Monocytes (Bld) [#/Vol] 0.40 10 Normal 0.09 - 1.40 10 [facility]icsSn[facility].; [facility], [facility]. Work Phone: Monocytes/100 WBC (Bld) 8.3 % Normal 2.0 - 13.0 % [facility].; [facility], [facility]. Work Phone: Neutrophils (Bld) [#/Vol] 2.30 10 Normal 2.25 - 8.10 10 [facility]ics[facility].; [facility], [facility]. Work Phone: Neutrophils/100 WBC (Bld) 50.0 % Normal 50.0 - 75.0 % [facility]icsSn[facility].; [facility] CenterO[facility]. Work Phone: Platelet mean volume (Bld) [Entitic vol] 8.2 fL Normal 6.4 - 10.5 fL [facility]icsO[facility].; [facility], [facility]. Platelets (Bld) [#/Vol] 185 10 Normal 150 - 450 10 [facility] [employer] [facility].; [facility], [employer]. RBC (Bld) [#/Vol] 4.61 10 Normal 4.50 - 6.0 0 10 [facility].; [facility] [employer] [facility], [employer]. WBC (Bld) [#/Vol] 4.50 10 Normal 4.50 - 10.80 10 [facility] [employer] [facility].; [facility] [employer] [facility], [employer]. No Panel Informationon 03-07 Electrolyte Balance 6.0 meq/L Normal 4.0 - 15 .0 meq/L [facility] [employer] [facility].; [facility] [employer] [facility] Eosinophil, Absolute 0.20 10 Normal 0.00 - 0.65 10 [facility] [employer] [facility].; [facility] [employer] [facility], [employer] Work Phone: 3.0 g/dL Normal 1.5 - 3.8 g/dL [facility].; [facility], Inc[employer] 3.4 % Normal 0.0 - 6.0 % [facility] [employer] [facility].; [facility] [employer] [facility], [employer] Work Phone: 1.0 % Normal 0.0 - 2.5 % [facility] [employer] [facility].; [facility] [employer] [facility], [employer] Work Phone: Laboratory - Chemistry and C hemistry - challengeon 04-26-2016 Glucose [Mass/Vol] 112 mg/dL Abnormal 74 - 106 mg/dL [facility] [employer] [facility].; [employer] [facility] [employer] [facility], [employer] Work Phone: Urea nitrogen [Mass/Vol] 13 mg/dL Normal 6 - 20 mg/dL [facility] [employer] [facility].; [employer] Ryan [facility] [employer] [facility], [employer]. Work Phone: Laboratory - Hematology and Cell countson 04-26-2016 Hemoglobin (Bld) [Mass/Vol] 15.0 g/dL Normal 13.0 - 17.5 g/dL [facility]icsSn[facility]; [facility] Work Phone: No Panel Informationon 04-26 Pathology Surgical SEE BELOW Normal [facility].; [facility]Sn[facility] Work Phone: SEE BELOW Normal [facility]icsSn[facility]; [facility]Sn[facility] Work Phone: Laboratory - Blood bankon Albumin given [Vol] 3.7 g/dL Normal 3.2 - 4. 8 g/dL [facility]icsSn[facility]; [facility]Sn[facility] Laboratory - Chemistry and C hemistry - challengeon 04-18-2016 Albumin/Globulin [Mass ratio] 1.1 {ratio} Normal 0.9 - 1.6 [facility]icsSn[facility]; [facility]. ALP [Catalytic activity/Vol] 105 U/L Normal 38 - 126 U/L [facility]icsSn[facility]; [facility], [facility]. ALT [Catalytic activity/Vol] 27 U/L Normal 12 - 55 U/L [facility]icsSn[facility]; [facility], [facility]. AST [Catalytic activity/Vol] 10 U/L Normal 8 - 34 U/L [facility]icsSn[facility]; [facility], [facility] Base excess Calc (BldMV) [Moles/Vol] 5.0 meq/L Normal 4.0 - 15.0 meq/L [facility]icsSn[facility]; [facility], [facility]. Bilirubin direct and total panel [Mass/Vol] 0.3 mg/dL Normal 0.2 - 1.2 mg/dL [facility]icsSn[facility]; [facility], [facility] Calcium [Mass/Vol] 8.8 mg/dL Normal 8.4 - 10. 1 mg/dL [facility]icsSn[facility]; [facility] Chloride [Moles/Vol] 109 mmol/L Normal 98 - 11 0 meq/L [facility]; [facility] Cholesterol [Mass/Vol] 204 mg/dL Abnormal 50 - 199 mg/dL [facility].; [facility] Cholesterol in HDL [Mass/Vol] 41 mg/dL Normal 40 - 59 mg/dL [facility].; [facility] Cholesterol in LDL [Mass/Vol] 128 mg/dL Normal 0 - 129 mg/dL [facility].; [facility] CO2 [Moles/Vol] 29 mmol/L Normal 22 - 32 meq/L [facility].; [facility] Creatinine [Mass/Vol] 1.31 mg/dL Normal 0.60 - 1.40 mg/dL [facility].; [facility] Free T4 index Calc [Mass/Vol] 9.88 Normal 3.60 - 14.00 [facility].; [facility], [facility] Work Phone: GFR/1.73 sq M.predicted among blacks MDRD (S/P/Bld) [Vol rate/Area] mL/min/{1.73_m2} Normal [facility].; [facility]. Work Phone: GFR/1.73 sq M.predicted among non-blacks MDRD (S/P/Bld) [Vol rate/Area] 54 {mL/min/1.73m_2} Normal [facility].; [facility], [facility] Work Phone: Globulin (S) [Mass/Vol] 3.3 g/dL Normal 1.5 - 3.8 g/dL [facility].; [facility], [facility] Glucose [Mass/Vol] 84 mg/dL Normal 82 - 115 mg/dL [facility]; [facility] Iron [Mass/Vol] 103 ug/dL Normal 49 - 181 ug/dL [facility]; [facility] Iron binding capacity [Mass/Vol] 398 ug/dL Normal 250 - 500 ug/dL [facility]; [facility] Iron saturation [Mass fraction] 26 % Normal [facility]; [facility] Potassium [Moles/Vol] 4.4 mmol/L Normal 3.5 - 5.0 meq/L [facility]; [facility] Protein [Mass/Vol] 7.0 g/dL Normal 6.0 - 8.5 g/dL [facility]; [facility] Sodium [Moles/Vol] 143 mmol/L Normal 136 - 145 meq/L [facility]; [facility] T4 [Mass/Vol] 8.9 ug/dL Normal 4.5 - 12.1 ug/dL [facility]; [facility]. T4/Triiodothyronine (T3) uptake index [Mass ratio] 1.11 {ratio} Normal 0.76 - 1.23 {ratio} [facility]; [facility] Triglyceride [Mass/Vol] 177 mg/dL Abnormal 3 - 149 mg/dL [facility]; [facility] TSH Qn 3.20 m[IU]/L Normal 0.36 - 3.74 {mcIU/mL} [facility]; [facility] Urea nitrogen [Mass/Vol] 19.0 mg/dL Normal 8.0 - 22.0 mg/dL [facility]; [facility] Urea nitrogen/Creatinine [Mass ratio] 14.5 mg/mg Normal 10.0 - 22.0 [facility]; [facility] Laboratory - Hematology and Cell countson 04-18-2016 Basophils/100 WBC (Bld) 0.6 % Normal 0.0 - 2.5 % [facility]; [facility] Eosinophils/100 WBC (Bld) 1.7 % Normal 0.0 - 6.0 % [facility].; [facility], [facility] Erythrocyte distribution width (RBC) [Ratio] 13.2 % Normal 11.5 - 15.5 % [facility].; [facility], [facility] Hematocrit (Bld) [Volume fraction] 40.6 % Normal 40.0 - 52.0 % [facility]; [facility], [facility] Hemoglobin (Bld) [Mass/Vol] 13.9 g/dL Normal 13.0 - 17.5 g/dL [facility].; [facility], [facility] Lymphocytes/100 WBC (Bld) 37.8 % Normal 20.0 - 40.0 % [facility].; [facility], [facility]. MCH (RBC) [Entitic mass] 29.9 pg Normal 27.0 - 33.0 pg [facility].; [facility], [facility]. MCHC (RBC) [Mass/Vol] 34.3 g/dL Normal 32.0 - 36.0 g/dL [facility].; [facility], [facility] MCV (RBC) [Entitic vol] 87.2 fL Normal 81.0 - 100.0 fL [facility].; [facility], [facility] Monocytes/100 WBC (Bld) 8.8 % Normal 2.0 - 13.0 % [facility]ics[facility].; [facility], [facility] Neutrophils (Bld) [#/Vol] 2.40 {10_3/mcL} Normal 2.00 - 8.00 {10_3/mcL} [facility]icsSn[facility].; [facility], [facility] Neutrophils/100 WBC (Bld) 51.1 % Normal 50.0 - 75.0 % [facility]icsSn[facility].; [facility], [facility]. Platelet mean volume (Bld) [Entitic vol] 8.6 fL Normal 6.4 - 10.5 fL [facility]icsSn[facility].; [facility], [facility]. Platelets (Bld) [#/Vol] 168 {10_3/mcL} Normal 150 - 450 {10_3/mcL} [facility], [facility] RBC (Bld) [#/Vol] 4.66 {10_6/mcL} Normal 4.50 - 6.00 {10_6/mcL} [facility], [facility].; [facility], [facility]. WBC (Bld) [#/Vol] 4.70 {10_3/mcL} Normal 4.50 - 10.80 {10_3/mcL} [facility], [facility].; [facility], [facility]. No Panel Informationon 04-18 OCCULT BLOOD, FECES, SINGLE (IN OFFICE) Negative Normal [facility].; [facility], [facility] Negative Normal [facility]icsSn[facility].; [facility], [employer] 3.3 g/dL Normal 1.5 - 3.8 g/dL [facility]icsSn[facility].; [facility], Inc[facility] Laboratory - Chemistry and C hemistry - challengeon 08-09-2015 Albumin BCP dye [Mass/Vol] 3.6 g/dL Normal 3.2 - 4.8 g/dL [facility]icsSn[facility].; [facility], [facility] Albumin/Globulin [Mass ratio] 1.3 {ratio} Normal 0.9 - 1.6 [facility]icsSn[facility].; [facility], Inc[facility] ALP [Catalytic activity/Vol] 106 U/L Normal 38 - 126 U/L [facility].; [facility], [facility] ALT No additional P-5'-P [Catalytic activity/Vol] 27 U/L Normal 12 - 55 U/L [facility].; [facility], Inc[facility] ALT With P-5'-P [Catalytic activity/Vol] 27 U/L Normal 12 - 55 U/L [facility]; [facility] AST [Catalytic activity/Vol] 14 U/L Normal 8 - 34 U/L [facility].; [facility] AST With P-5'-P [Catalytic activity/Vol] 14 U/L Normal 8 - 34 U/L [facility].; [facility] Bilirubin [Mass/Vol] 0.4 mg/dL Normal 0.2 - 1 .2 mg/dL [facility]; [facility] Calcium [Mass/Vol] 8.4 mg/dL Normal 8.4 - 10. 1 mg/dL [facility]; [facility] Chloride [Moles/Vol] 109 mmol/L Normal 98 - 11 0 meq/L [facility]; [facility] Cholesterol [Mass/Vol] 192 mg/dL Normal 50 - 199 mg/dL [facility]; [facility] Cholesterol in HDL [Mass/Vol] 39 mg/dL Abnormal 40 - 59 mg/dL [facility]; [facility]. Cholesterol in LDL [Mass/Vol] 127 mg/dL Normal 0 - 129 mg/dL [facility]; [facility] CO2 [Moles/Vol] 28 mmol/L Normal 22 - 32 meq/L [facility]; [facility] Creatinine [Mass/Vol] 1.06 mg/dL Normal 0.60 - 1.40 mg/dL [facility]; [facility], [facility]. GFR/1.73 sq M.predicted among blacks MDRD (S/P/Bld) [Vol rate/Area] mL/min/{1.73_m2} Normal [facility]; [facility], [facility] Work Phone: GFR/1.73 sq M.predicted among non-blacks MDRD (S/P/Bld) [Vol rate/Area] mL/min/{1.73_m2} Normal [facility]ics[facility]; [facility] Work Phone: Globulin (S) [Mass/Vol] 2.8 g/dL Normal 1.5 - 3.8 g/dL [facility]icsSn[facility].; [facility] Glucose [Mass/Vol] 96 mg/dL Normal 82 - 115 mg/dL [facility].; [facility] Potassium [Moles/Vol] 4.2 mmol/L Normal 3.5 - 5.0 meq/L [facility].; [facility] Protein [Mass/Vol] 6.4 g/dL Normal 6.0 - 8.5 g/dL [facility].; [facility] Sodium [Moles/Vol] 143 mmol/L Normal 136 - 145 meq/L [facility].; [facility]. Triglyceride [Mass/Vol] 132 mg/dL Normal 3 - 149 mg/dL [facility].; [facility], [facility]. Urea nitrogen [Mass/Vol] 16.0 mg/dL Normal 8.0 - 22.0 mg/dL [facility].; [facility]. Urea nitrogen/Creatinine [Mass ratio] 15.1 mg/mg Normal 10.0 - 22.0 [facility].; [facility]. No Panel Informationon 08-08 Electrolyte Balance 6.0 meq/L Normal 4.0 - 15 .0 meq/L [facility]ics[facility].; [facility], Inc 2.8 g/dL Normal 1.5 - 3.8 g/dL [facility]icsSn[facility].; [facility], [facility] No Panel Informationon Pathology Surgical SEE BELOW Normal [facility].; [facility], [facility]. SEE BELOW Normal [facility].; [facility], [facility]. No Panel Informationon 06-10 Pathology Surgical SEE BELOW Normal [facility], [facility].; [facility], [facility] SEE BELOW Normal [facility].; [facility], [facility]. Laboratory - Blood bankon Albumin given [Vol] 3.8 g/dL Normal 3.2 - 4. 8 g/dL [facility].; [facility], [facility]. Laboratory - Chemistry and C hemistry - challengeon 09-28-2014 Albumin/Globulin [Mass ratio] 1.3 {ratio} Normal 0.9 - 1.6 [facility].; [facility], [facility]. ALP [Catalytic activity/Vol] 103 U/L Normal 38 - 126 U/L [facility].; [facility], [facility]. ALT [Catalytic activity/Vol] 27 U/L Normal 12 - 55 U/L [facility].; [facility], [facility]. AST [Catalytic activity/Vol] 14 U/L Normal 8 - 34 U/L [facility].; [facility], [facility]. Base excess Calc (BldMV) [Moles/Vol] 4.0 meq/L Normal 4.0 - 15.0 meq/L [facility]Sn[facility].; [facility], [facility]. Bilirubin direct and total panel [Mass/Vol] 0.3 mg/dL Normal 0.2 - 1.2 mg/dL [facility]ics[facility].; [facility], [facility]. Calcium [Mass/Vol] 8.8 mg/dL Normal 8.4 - 10. 1 mg/dL [facility]Sn[facility].; [facility], [facility] Chloride [Moles/Vol] 111 mmol/L Abnormal 98 - 11 0 meq/L [facility].; [facility], [facility]. Cholesterol [Mass/Vol] 233 mg/dL Abnormal 50 - 199 mg/dL [facility].; [facility] Cholesterol in HDL [Mass/Vol] 43 mg/dL Normal 40 - 59 mg/dL [facility].; [facility] Cholesterol in LDL [Mass/Vol] 140 mg/dL Abnormal 0 - 129 mg/dL [facility].; [facility] CO2 [Moles/Vol] 30 mmol/L Normal 22 - 32 meq/L [facility].; [facility] Creatinine [Mass/Vol] 1.05 mg/dL Normal 0.60 - 1.40 mg/dL [facility]; [facility] Free T4 index Calc [Mass/Vol] 11.37 Normal 3.60 - 14.00 [facility]; [facility] Work Phone: GFR/1.73 sq M.predicted among blacks MDRD (S/P/Bld) [Vol rate/Area] mL/min/{1.73_m2} Normal [facility].; [facility]. Work Phone: GFR/1.73 sq M.predicted among non-blacks MDRD (S/P/Bld) [Vol rate/Area] mL/min/{1.73_m2} Normal [facility].; [facility], [facility] Work Phone: Globulin (S) [Mass/Vol] 3.0 g/dL Normal 1.5 - 3.8 g/dL [facility].; [facility], [facility]. Glucose [Mass/Vol] 101 mg/dL Normal 82 - 115 mg/dL [facility].; [facility], [facility] Iron [Mass/Vol] 115 ug/dL Normal 49 - 181 ug/dL [facility]; [facility], [facility] Iron binding capacity [Mass/Vol] 423 ug/dL Normal 250 - 500 ug/dL [facility]; [facility] Iron saturation [Mass fraction] 27 % Normal [facility]; [facility] Potassium [Moles/Vol] 4.9 mmol/L Normal 3.5 - 5.0 meq/L [facility]; [facility] Protein [Mass/Vol] 6.8 g/dL Normal 6.0 - 8.5 g/dL [facility]; [facility] Sodium [Moles/Vol] 145 mmol/L Normal 136 - 145 meq/L [facility] [facility]; [facility] T4 [Mass/Vol] 9.4 ug/dL Normal 4.5 - 12.1 ug/dL [facility]; [facility] T4/Triiodothyronine (T3) uptake index [Mass ratio] 1.21 {ratio} Normal 0.76 - 1.23 {ratio} [facility]; [facility] Triglyceride [Mass/Vol] 248 mg/dL Abnormal 3 - 149 mg/dL [facility]; [facility] TSH Qn 3.80 m[IU]/L Abnormal 0.36 - 3.74 {mcIU/mL} [facility]; [facility] Urea nitrogen [Mass/Vol] 21.0 mg/dL Normal 8.0 - 22.0 mg/dL [facility]; [facility] Urea nitrogen/Creatinine [Mass ratio] 20.0 mg/mg Normal 10.0 - 22.0 [facility]; [facility] Laboratory - Hematology and Cell countson 09-28-2014 Basophils/100 WBC (Bld) 0.9 % Normal 0.0 - 2.5 % [facility]; [facility] Eosinophils/100 WBC (Bld) 2.0 % Normal 0.0 - 6.0 % [facility].; [facility], [facility] Erythrocyte distribution width (RBC) [Ratio] 13.7 % Normal 11.5 - 15.5 % [facility]; [facility], [facility] Hematocrit (Bld) [Volume fraction] 41.1 % Normal 40.0 - 52.0 % [facility].; [facility], [facility] Hemoglobin (Bld) [Mass/Vol] 13.6 g/dL Normal 13.0 - 17.5 g/dL [facility].; [facility], [facility] Lymphocytes/100 WBC (Bld) 36.7 % Normal 20.0 - 40.0 % [facility].; [facility], [facility] MCH (RBC) [Entitic mass] 29.6 pg Normal 27.0 - 33.0 pg [facility].; [facility], [facility] MCHC (RBC) [Mass/Vol] 33.0 g/dL Normal 32.0 - 36.0 g/dL [facility].; [facility], [facility]. MCV (RBC) [Entitic vol] 89.7 fL Normal 81.0 - 100.0 fL [facility].; [facility], [facility] Monocytes/100 WBC (Bld) 7.3 % Normal 2.0 - 13.0 % [facility].; [facility], [facility]. Neutrophils (Bld) [#/Vol] 2.60 {10_3/mcL} Normal 2.00 - 8.00 {10_3/mcL} [facility].; [facility], [facility]. Neutrophils/100 WBC (Bld) 53.1 % Normal 50.0 - 75.0 % [facility].; [facility], [facility] Platelet mean volume (Bld) [Entitic vol] 8.1 fL Normal 6.4 - 10.5 fL [facility]; [facility]. Platelets (Bld) [#/Vol] 194 {10_3/mcL} Normal 150 - 450 {10_3/mcL} [facility].; [facility], [facility]. RBC (Bld) [#/Vol] 4.58 {10_6/mcL} Normal 4.50 - 6.00 {10_6/mcL} [facility], [facility].; [facility], [facility]. WBC (Bld) [#/Vol] 4.90 {10_3/mcL} Normal 4.50 - 10.80 {10_3/mcL} [facility], [facility].; [facility], [facility]. No Panel Informationon 09-28 3.0 g/dL Normal 1.5 - 3.8 g/dL [facility].; [facility], [facility]. Laboratory - Chemistry and C hemistry - challengeon 04-21-2013 Albumin BCP dye [Mass/Vol] 3.7 g/dL Normal 3.2 - 4.8 g/dL [facility].; [facility], [facility]. Albumin/Globulin [Mass ratio] 1.2 {ratio} Normal 0.9 - 1.6 [facility].; [facility], [facility]. ALP [Catalytic activity/Vol] 120 U/L Normal 38 - 126 U/L [facility].; [facility], [facility]. ALT No additional P-5'-P [Catalytic activity/Vol] 26 U/L Normal 12 - 55 U/L [facility].; [facility], [facility]. ALT With P-5'-P [Catalytic activity/Vol] 26 U/L Normal 12 - 55 U/L [facility].; [facility], [facility]. AST [Catalytic activity/Vol] 13 U/L Normal 8 - 34 U/L [facility].; [facility], [facility]. AST With P-5'-P [Catalytic activity/Vol] 13 U/L Normal 8 - 34 U/L [facility].; [facility]. Bilirubin [Mass/Vol] 0.3 mg/dL Normal 0.2 - 1 .2 mg/dL [facility].; [facility] Calcium [Mass/Vol] 8.8 mg/dL Normal 8.4 - 10. 1 mg/dL [facility].; [facility] Chloride [Moles/Vol] 108 mmol/L Normal 98 - 11 0 meq/L [facility].; [facility] Cholesterol [Mass/Vol] 204 mg/dL Abnormal 50 - 199 mg/dL [facility]; [facility] Cholesterol in HDL [Mass/Vol] 42 mg/dL Normal 40 - 59 mg/dL [facility]; [facility] Cholesterol in LDL [Mass/Vol] 130 mg/dL Abnormal 0 - 129 mg/dL [facility].; [facility] CO2 [Moles/Vol] 29 mmol/L Normal 22 - 32 meq/L [facility]; [facility] Cobalamin (Vitamin B12) [Mass/Vol] 814 pg/mL Normal 211 - 911 pg/mL [facility]; [facility] Creatinine [Mass/Vol] 0.91 mg/dL Normal 0.60 - 1.40 mg/dL [facility].; [facility], [facility]. GFR/1.73 sq M.predicted among blacks MDRD (S/P/Bld) [Vol rate/Area] mL/min/{1.73_m2} Normal [facility].; [facility], [facility] Work Phone: GFR/1.73 sq M.predicted among non-blacks MDRD (S/P/Bld) [Vol rate/Area] mL/min/{1.73_m2} Normal [facility].; [facility] Work Phone: Globulin (S) [Mass/Vol] 3.1 g/dL Normal 1.5 - 3.8 g/dL [facility]; [facility] Glucose [Mass/Vol] 102 mg/dL Normal 82 - 115 mg/dL [facility]; [facility] Potassium [Moles/Vol] 4.3 mmol/L Normal 3.5 - 5.0 meq/L [facility]; [facility] Protein [Mass/Vol] 6.8 g/dL Normal 6.0 - 8.5 g/dL [facility]; [facility] Sodium [Moles/Vol] 142 mmol/L Normal 136 - 145 meq/L [facility]; [facility] Triglyceride [Mass/Vol] 161 mg/dL Abnormal 3 - 149 mg/dL [facility]; [facility] Urea nitrogen [Mass/Vol] 18.0 mg/dL Normal 8.0 - 22.0 mg/dL [facility]; [facility] Urea nitrogen/Creatinine [Mass ratio] 19.8 mg/mg Normal 10.0 - 22.0 [facility]; [facility] Laboratory - Hematology and Cell countson 04-21-2013 Basophils/100 WBC (Bld) 1.3 % Normal 0.0 - 2.5 % [facility]; [facility] Eosinophils/100 WBC (Bld) 1.6 % Normal 0.0 - 6.0 % [facility]; [facility] Erythrocyte distribution width (RBC) [Ratio] 14.0 % Normal 11.5 - 15.5 % [facility].; [facility], [facility] Hematocrit (Bld) [Volume fraction] 38.1 % Abnormal 40.0 - 52.0 % [facility]; [facility], [facility]. Hemoglobin (Bld) [Mass/Vol] 12.7 g/dL Abnormal 13.0 - 17.5 g/dL [facility].; [facility], [facility] Lymphocytes/100 WBC (Bld) 34.9 % Normal 20.0 - 40.0 % [facility].; [facility], [facility] MCH (RBC) [Entitic mass] 29.5 pg Normal 27.0 - 33.0 pg [facility].; [facility], [facility]. MCHC (RBC) [Mass/Vol] 33.5 g/dL Normal 32.0 - 36.0 g/dL [facility].; [facility], [facility] MCV (RBC) [Entitic vol] 88.0 fL Normal 81.0 - 98.0 fL [facility].; [facility], [facility] Monocytes/100 WBC (Bld) 7.9 % Normal 2.0 - 13.0 % [facility].; [facility], [facility]. Neutrophils (Bld) [#/Vol] 2.20 {10_3/mcL} Normal 2.00 - 8.00 {10_3/mcL} [facility].; [facility], [facility]. Neutrophils/100 WBC (Bld) 54.3 % Normal 50.0 - 75.0 % [facility].; [facility], [facility]. Platelet mean volume (Bld) [Entitic vol] 8.0 fL Normal 6.4 - 10.5 fL [facility].; [facility], [facility]. Platelets (Bld) [#/Vol] 209 {10_3/mcL} Normal 150 - 450 {10_3/mcL} [facility], [facility].; [facility], [facility]. RBC (Bld) [#/Vol] 4.33 {10_6/mcL} Abnormal 4.50 - 6.00 {10_6/mcL} [facility], [facility].; [facility], [facility]. WBC (Bld) [#/Vol] 4.00 {10_3/mcL} Abnormal 4.50 - 10.80 {10_3/mcL} [facility]; [facility], [facility] No Panel Informationon 04-21 Electrolyte Balance 5.0 meq/L Normal 4.0 - 15 .0 meq/L [facility]; [facility], [facility] 3.1 g/dL Normal 1.5 - 3.8 g/dL [facility].; [facility], [facility]. Laboratory - Blood bankon Albumin given [Vol] 3.9 g/dL Normal 3.2 - 4. 8 g/dL [facility]; [facility], [facility]. Laboratory - Chemistry and C hemistry - challengeon 05-02-2012 Albumin/Globulin [Mass ratio] 1.1 {ratio} Normal 0.9 - 1.6 [facility]; [facility], [facility]. ALP [Catalytic activity/Vol] 113 U/L Normal 38 - 126 U/L [facility].; [facility], [facility]. ALT [Catalytic activity/Vol] 32 U/L Normal 12 - 55 U/L [facility].; [facility], [facility]. AST [Catalytic activity/Vol] 17 U/L Normal 8 - 34 U/L [facility].; [facility], [facility] Base excess Calc (BldMV) [Moles/Vol] 9.0 meq/L Normal 4.0 - 15.0 meq/L [facility].; [facility], [facility]. Bilirubin direct and total panel [Mass/Vol] 0.4 mg/dL Normal 0.2 - 1.2 mg/dL [facility]; [facility], [facility]. Calcium [Mass/Vol] 8.9 mg/dL Normal 8.4 - 10. 1 mg/dL [facility].; [facility] Chloride [Moles/Vol] 104 mmol/L Normal 98 - 11 0 meq/L [facility].; [facility] Cholesterol [Mass/Vol] 190 mg/dL Normal 50 - 199 mg/dL [facility]; [facility]. Cholesterol in HDL [Mass/Vol] 30 mg/dL Abnormal 40 - 59 mg/dL [facility].; [facility] Cholesterol in LDL [Mass/Vol] 121 mg/dL Normal 0 - 129 mg/dL [facility].; [facility] Cholesterol in VLDL [Mass/Vol] 39 mg/dL Normal [facility]; [facility]. CO2 [Moles/Vol] 28 mmol/L Normal 22 - 32 meq/L [facility]; [facility], [facility] Creatinine [Mass/Vol] 0.90 mg/dL Normal 0.60 - 1.40 mg/dL [facility].; [facility], [facility]. Free T4 index Calc [Mass/Vol] 8.69 Normal 3.60 - 14.00 [facility].; [facility], [facility]. Work Phone: GFR/1.73 sq M.predicted among blacks MDRD (S/P/Bld) [Vol rate/Area] mL/min/{1.73_m2} Normal [facility].; [facility], [facility]. Work Phone: GFR/1.73 sq M.predicted among non-blacks MDRD (S/P/Bld) [Vol rate/Area] mL/min/{1.73_m2} Normal [facility].; [facility], [facility]. Work Phone: Globulin (S) [Mass/Vol] 3.5 g/dL Normal 1.5 - 3.8 g/dL [facility].; [facility], [facility]. Glucose [Mass/Vol] 94 mg/dL Normal 82 - 115 mg/dL [facility]; [facility] Iron [Mass/Vol] 72 ug/dL Normal 49 - 181 ug/dL [facility]; [facility] Iron binding capacity [Mass/Vol] 412 ug/dL Normal 250 - 500 ug/dL [facility]; [facility] Iron saturation [Mass fraction] 17 % Normal [facility]; [facility] Potassium [Moles/Vol] 4.7 mmol/L Normal 3.5 - 5.0 meq/L [facility]; [facility] Protein [Mass/Vol] 7.4 g/dL Normal 6.0 - 8.5 g/dL [facility]; [facility] Sodium [Moles/Vol] 141 mmol/L Normal 136 - 145 meq/L [facility]; [facility] T4 [Mass/Vol] 8.6 ug/dL Normal 4.5 - 12.1 ug/dL [facility]; [facility] T4/Triiodothyronine (T3) uptake index [Mass ratio] 1.01 {ratio} Normal 0.76 - 1.23 {ratio} [facility]; [facility] Triglyceride [Mass/Vol] 196 mg/dL Abnormal 3 - 149 mg/dL [facility]; [facility]. TSH Qn 1.55 m[IU]/L Normal 0.36 - 3.74 {mcIU/mL} [facility]; [facility] Urea nitrogen [Mass/Vol] 13.0 mg/dL Normal 8.0 - 22.0 mg/dL [facility]; [facility] Urea nitrogen/Creatinine [Mass ratio] 14.4 mg/mg Normal 10.0 - 22.0 [facility]; [facility] Laboratory - Hematology and Cell countson 05-02-2012 Basophils/100 WBC (Bld) 0.5 % Normal 0.0 - 2.5 % [facility]; [facility], [facility] Eosinophils/100 WBC (Bld) 2.3 % Normal 0.0 - 6.0 % [facility].; [facility] Erythrocyte distribution width (RBC) [Ratio] 13.3 % Normal 11.5 - 15.5 % [facility]; [facility], [facility] Hematocrit (Bld) [Volume fraction] 40.1 % Normal 40.0 - 52.0 % [facility]; [facility], [facility] Hemoglobin (Bld) [Mass/Vol] 13.6 g/dL Normal 13.0 - 17.5 g/dL [facility]; [facility], [facility] Lymphocytes/100 WBC (Bld) 37.3 % Normal 20.0 - 40.0 % [facility].; [facility], [facility]. MCH (RBC) [Entitic mass] 29.9 pg Normal 27.0 - 33.0 pg [facility]; [facility], [facility]. MCHC (RBC) [Mass/Vol] 34.1 g/dL Normal 32.0 - 36.0 g/dL [facility].; [facility], [facility] MCV (RBC) [Entitic vol] 87.9 fL Normal 81.0 - 98.0 fL [facility].; [facility], [facility] Monocytes/100 WBC (Bld) 7.0 % Normal 2.0 - 13.0 % [facility].; [facility], [facility] Neutrophils (Bld) [#/Vol] 2.67 {10_3/mcL} Normal 2.00 - 8.00 {10_3/mcL} [facility].; [facility] Neutrophils/100 WBC (Bld) 52.9 % Normal 50.0 - 75.0 % [facility].; [facility], [facility] Platelet mean volume (Bld) [Entitic vol] 7.4 fL Normal 6.4 - 10.5 fL [facility].; [facility], [facility]. Platelets (Bld) [#/Vol] 298 {10_3/mcL} Normal 150 - 450 {10_3/mcL} [facility].; [facility], [facility]. RBC (Bld) [#/Vol] 4.56 {10_6/mcL} Normal 4.50 - 6.00 {10_6/mcL} [facility], [facility].; [facility], [facility]. WBC (Bld) [#/Vol] 5.04 {10_3/mcL} Normal 4.50 - 10.80 {10_3/mcL} [facility].; [facility], [facility]. No Panel Informationon 05-02 3.5 g/dL Normal 1.5 - 3.8 g/dL [facility].; [facility], [facility]. Laboratory - Chemistry and C hemistry - challengeon 07-11-2011 Albumin BCP dye [Mass/Vol] 3.9 g/dL Normal 3.2 - 4.8 g/dL [facility].; [facility], [facility]. Albumin/Globulin [Mass ratio] 1.1 {ratio} Normal 0.9 - 1.6 [facility].; [facility], [facility]. ALP [Catalytic activity/Vol] 89 U/L Normal 38 - 126 U/L [facility].; [facility], [facility]. ALT No additional P-5'-P [Catalytic activity/Vol] 33 U/L Normal 12 - 55 U/L [facility].; [facility] ALT With P-5'-P [Catalytic activity/Vol] 33 U/L Normal 12 - 55 U/L [facility].; [facility]. AST [Catalytic activity/Vol] 12 U/L Normal 8 - 34 U/L [facility].; [facility]. AST With P-5'-P [Catalytic activity/Vol] 12 U/L Normal 8 - 34 U/L [facility].; [facility] Bilirubin [Mass/Vol] 0.2 mg/dL Normal 0.2 - 1 .2 mg/dL [facility].; [facility] Calcium [Mass/Vol] 9.1 mg/dL Normal 8.4 - 10. 1 mg/dL [facility]; [facility] Chloride [Moles/Vol] 109 mmol/L Normal 98 - 11 0 meq/L [facility].; [facility] CO2 [Moles/Vol] 26 mmol/L Normal 22 - 32 meq/L [facility]; [facility] Creatinine [Mass/Vol] 0.90 mg/dL Normal 0.60 - 1.40 mg/dL [facility].; [facility]. GFR/1.73 sq M.predicted among blacks MDRD (S/P/Bld) [Vol rate/Area] mL/min/{1.73_m2} Normal [facility].; [facility] Work Phone: GFR/1.73 sq M.predicted among non-blacks MDRD (S/P/Bld) [Vol rate/Area] mL/min/{1.73_m2} Normal [facility].; [facility], [facility] Work Phone: Globulin (S) [Mass/Vol] 3.5 g/dL Normal 1.5 - 3.8 g/dL [facility].; [facility], [facility] Glucose [Mass/Vol] 93 mg/dL Normal 82 - 115 mg/dL [facility].; [facility] Potassium [Moles/Vol] 4.4 mmol/L Normal 3.5 - 5.0 meq/L [facility]; [facility] Protein [Mass/Vol] 7.4 g/dL Normal 6.0 - 8.5 g/dL [facility]; [facility] Sodium [Moles/Vol] 144 mmol/L Normal 136 - 145 meq/L [facility]; [facility] Urea nitrogen [Mass/Vol] 17.0 mg/dL Normal 8.0 - 22.0 mg/dL [facility]; [facility] Urea nitrogen/Creatinine [Mass ratio] 18.9 mg/mg Normal 10.0 - 22.0 [facility]; [facility] Laboratory - Hematology and Cell countson 07-11-2011 Basophils/100 WBC (Bld) 0.5 % Normal 0.0 - 2.5 % [facility]; [facility] Eosinophils/100 WBC (Bld) 3.2 % Normal 0.0 - 6.0 % [facility]; [facility] Erythrocyte distribution width (RBC) [Ratio] 14.2 % Normal 11.5 - 15.5 % [facility]; [facility] HbA1c (Bld) [Mass fraction] 5.8 % Normal 4.0 - 6.0 % [facility]; [facility] Hematocrit (Bld) [Volume fraction] 39.3 % Abnormal 40.0 - 52.0 % [facility]; [facility] Hemoglobin (Bld) [Mass/Vol] 13.4 g/dL Normal 13.0 - 17.5 g/dL [facility]; [facility] Lymphocytes/100 WBC (Bld) 37.6 % Normal 20.0 - 40.0 % [facility], [facility].; [facility], [facility]. MCH (RBC) [Entitic mass] 29.0 pg Normal 27.0 - 33.0 pg [facility].; [facility], [facility] MCHC (RBC) [Mass/Vol] 34.2 g/dL Normal 32.0 - 36.0 g/dL [facility], [facility].; [facility], [facility] MCV (RBC) [Entitic vol] 85.0 fL Normal 81.0 - 98.0 fL [facility].; [facility], [facility] Monocytes/100 WBC (Bld) 8.3 % Normal 2.0 - 13.0 % [facility].; [facility], [facility]. Neutrophils (Bld) [#/Vol] 2.48 {10_3/mcL} Normal 2.00 - 8.00 {10_3/mcL} [facility].; [facility], [facility]. Neutrophils/100 WBC (Bld) 50.4 % Normal 50.0 - 75.0 % [facility].; [facility], [facility]. Platelet mean volume (Bld) [Entitic vol] 7.6 fL Normal 6.4 - 10.5 fL [facility].; [facility], [facility]. Platelets (Bld) [#/Vol] 250 {10_3/mcL} Normal 150 - 450 {10_3/mcL} [facility], [facility].; [facility], [facility]. RBC (Bld) [#/Vol] 4.62 {10_6/mcL} Normal 4.50 - 6.00 {10_6/mcL} [facility], [facility].; [facility], [facility]. WBC (Bld) [#/Vol] 4.93 {10_3/mcL} Normal 4.50 - 10.80 {10_3/mcL} [facility], [facility].; [facility], [facility]. No Panel Informationon 07-10 Electrolyte Balance 9.0 meq/L Normal 4.0 - 15 .0 meq/L [facility] [place]; [facility], [facility] OCCULT BLOOD, FECES, SINGLE (IN OFFICE) Negative Normal [facility] [place]; [facility] Negative Normal [facility] [place]; [facility], [facility] 3.5 g/dL Normal 1.5 - 3.8 g/dL [facility] [place]; [facility], [facility]. Laboratory - Blood bankon Albumin given [Vol] 4.3 g/dL Normal 3.2 - 4. 8 g/dL [facility] [place]; [facility], [facility]. Laboratory - Chemistry and C hemistry - challengeon 06-29-2011 Albumin/Globulin [Mass ratio] 1.4 {ratio} Normal 0.9 - 1.6 [facility] [place]; [facility], [facility] ALP [Catalytic activity/Vol] 90 U/L Normal 38 - 126 U/L [facility] [place]; [facility], [facility]. ALT [Catalytic activity/Vol] 36 U/L Normal 12 - 55 U/L [facility] [place]; [facility], [facility]. AST [Catalytic activity/Vol] 15 U/L Normal 8 - 34 U/L [facility], [facility] Base excess Calc (BldMV) [Moles/Vol] 7.0 meq/L Normal 4.0 - 15.0 meq/L [facility] [place]; [facility], [facility]. Bilirubin direct and total panel [Mass/Vol] 0.7 mg/dL Normal 0.2 - 1.2 mg/dL [facility] [place]; [facility], [facility] Calcium [Mass/Vol] 9.6 mg/dL Normal 8.4 - 10. 1 mg/dL [facility] [place]; [facility], [facility] Chloride [Moles/Vol] 106 mmol/L Normal 98 - 11 0 meq/L [facility] [place]; [facility]. Cholesterol [Mass/Vol] 263 mg/dL Abnormal 50 - 199 mg/dL [facility].; [facility] Cholesterol in HDL [Mass/Vol] 45 mg/dL Normal 40 - 59 mg/dL [facility].; [facility] Cholesterol in LDL [Mass/Vol] 181 mg/dL Abnormal 0 - 129 mg/dL [facility].; [facility]. Cholesterol in VLDL [Mass/Vol] 37 mg/dL Normal [facility].; [facility] CO2 [Moles/Vol] 29 mmol/L Normal 22 - 32 meq/L [facility] [place]; [facility]. Creatinine [Mass/Vol] 0.95 mg/dL Normal 0.60 - 1.40 mg/dL [facility].; [facility] Free T4 index Calc [Mass/Vol] 10.19 Normal 3.60 - 14.00 [facility].; [facility], [facility]. Work Phone: GFR/1.73 sq M.predicted among blacks MDRD (S/P/Bld) [Vol rate/Area] mL/min/{1.73_m2} Normal [facility].; [facility], [facility]. Work Phone: GFR/1.73 sq M.predicted among non-blacks MDRD (S/P/Bld) [Vol rate/Area] mL/min/{1.73_m2} Normal [facility].; [facility], [facility]. Work Phone: Globulin (S) [Mass/Vol] 3.1 g/dL Normal 1.5 - 3.8 g/dL [facility].; [facility], [facility] Glucose [Mass/Vol] 102 mg/dL Normal 82 - 115 mg/dL [facility]; [facility] Iron [Mass/Vol] 134 ug/dL Normal 49 - 181 ug/dL [facility] [place]; [facility] Iron binding capacity [Mass/Vol] 466 ug/dL Normal 250 - 500 ug/dL [facility] [place]; [facility] Iron saturation [Mass fraction] 29 % Normal [facility] [place]; [facility] Potassium [Moles/Vol] 4.6 mmol/L Normal 3.5 - 5.0 meq/L [facility] [place]; [facility] Prostate specific Ag [Mass/Vol] 1.90 ng/mL Normal 0.02 - 4.00 ng/mL [facility] [place]; [facility] Protein [Mass/Vol] 7.4 g/dL Normal 6.0 - 8.5 g/dL [facility] [place]; [facility] Sodium [Moles/Vol] 142 mmol/L Normal 136 - 145 meq/L [facility] [place]; [facility] T4 [Mass/Vol] 9.1 ug/dL Normal 4.5 - 12.1 ug/dL [facility] [place]; [facility] T4/Triiodothyronine (T3) uptake index [Mass ratio] 1.12 {ratio} Normal 0.76 - 1.23 {ratio} [facility] [place]; [facility] Triglyceride [Mass/Vol] 186 mg/dL Abnormal 3 - 149 mg/dL [facility] [place]; [facility]. TSH Qn 2.63 m[IU]/L Normal 0.36 - 3.74 {mcIU/mL} [facility] [place]; [facility] Urea nitrogen [Mass/Vol] 16.0 mg/dL Normal 8.0 - 22.0 mg/dL [facility] [place]; [facility] Urea nitrogen/Creatinine [Mass ratio] 16.8 mg/mg Normal 10.0 - 22.0 [facility] [place]; [facility] Laboratory - Hematology and Cell countson 06-29-2011 Basophils/100 WBC (Bld) 0.7 % Normal 0.0 - 2.5 % [facility] [place]; [facility] Eosinophils/100 WBC (Bld) 4.0 % Normal 0.0 - 6.0 % [facility] [place]; [facility] Erythrocyte distribution width (RBC) [Ratio] 14.7 % Normal 11.5 - 15.5 % [facility] [place]; [facility] Hematocrit (Bld) [Volume fraction] 40.5 % Normal 40.0 - 52.0 % [facility] [place]; [facility] Hemoglobin (Bld) [Mass/Vol] 13.9 g/dL Normal 13.0 - 17.5 g/dL [facility] [place]; [facility] Lymphocytes/100 WBC (Bld) 31.6 % Normal 20.0 - 40.0 % [facility] [place]; [facility], [facility] MCH (RBC) [Entitic mass] 28.9 pg Normal 27.0 - 33.0 pg [facility] [place]; [facility], [facility] MCHC (RBC) [Mass/Vol] 34.3 g/dL Normal 32.0 - 36.0 g/dL [facility].; [facility], [facility]. MCV (RBC) [Entitic vol] 84.4 fL Normal 81.0 - 98.0 fL [facility] [place]; [facility] Monocytes/100 WBC (Bld) 8.1 % Normal 2.0 - 13.0 % [facility] [place]; [facility], [facility] Neutrophils (Bld) [#/Vol] 2.75 {10_3/mcL} Normal 2.00 - 8.00 {10_3/mcL} [facility].; [facility], [facility]. Neutrophils/100 WBC (Bld) 55.6 % Normal 50.0 - 75.0 % [facility].; [facility], [facility]. Platelet mean volume (Bld) [Entitic vol] 8.0 fL Normal 6.4 - 10.5 fL [facility], [facility].; [facility], [facility]. Platelets (Bld) [#/Vol] 258 {10_3/mcL} Normal 150 - 450 {10_3/mcL} [facility], [facility].; [facility], [facility]. RBC (Bld) [#/Vol] 4.79 {10_6/mcL} Normal 4.50 - 6.00 {10_6/mcL} [facility], [facility].; [facility], [facility]. WBC (Bld) [#/Vol] 4.95 {10_3/mcL} Normal 4.50 - 10.80 {10_3/mcL} [facility], [facility].; [facility], [facility]. No Panel Informationon 06-28 3.1 g/dL Normal 1.5 - 3.8 g/dL [facility].; [facility], [facility]. Vital Signs Date Time Vital Sign Value Performing Clinician Sabrina martinez 01-03-2024 13:33-0400 Body height 164.47 cm Mar Sr RN [facility], [facility].; [facility], [facility]. 01-03-2024 13:33-0400 Body mass index (BMI) [Ratio] 34.88 kg/m2 Mar Sr RN [facility] [employer] [facility], [facility].; [facility], [facility]. 01-03-2024 13:33-0400 Body surface area Derived from formula 2.01 m2 Mar Sr RN [facility] [employer] [facility].; [facility], [employer] 01-03-2024 13:33-0400 Body weight 94.35 kg Mar Sr RN [facility], [facility].; [facility], [facility]. 01-03-2024 13:33-0400 Diastolic blood pressure 72 mm[Hg] Mar Sr RN [facility], [facility].; [facility] [employer] [facility], [employer]. Comment on above: Patient Position: Sitting; Cuff Location : Left Arm; Cuff Size: Large 01-03-2024 13:33-0400 Heart rate 64 /min Mar Sr RN [facility], [facility].; [facility] [employer] [facility], [employer] Comment on above: Pattern: Regular 01-03-2024 13:33-0400 Systolic blood pressure 138 mm[Hg] Mar Sr RN [facility], [facility].; [facility] [employer] [facility], [employer] Comment on above: Patient Position: Sitting; Cuff Location : Left Arm; Cuff Size: Large 06-20-2023 13:48-0500 Body height 164.47 cm ARIANNA LIPSCOMB RN [facility], [facility].; [facility], [employer] 06-20-2023 13:48-0500 Body mass index (BMI) [Ratio] 34.92 kg/m2 ARIANNA LIPSCOMB RN [facility], [facility].; [facility], [employer] 06-20-2023 13:48-0500 Body surface area Derived from formula 2.01 m2 ARIANNA LIPSCOMB RN [facility], [employer].; [facility], [employer] 06-20-2023 13:48-0500 Body weight 94.46 kg ARIANNA LIPSCOMB RN [facility], [facility].; [facility], [employer] 06-20-2023 13:48-0500 Diastolic blood pressure 75 mm[Hg] ARIANNA LIPSCOMB RN [facility], [employer] [facility] [employer] [facility], [employer]. Comment on above: Patient Position: Sitting; Cuff Location : Left Arm; Cuff Size: Large 06-20-2023 13:48-0500 Heart rate 54 /min ARIANNA LIPSCOMB RN [facility], [email or web address] [facility] [employer] [facility], [employer]. Comment on above: Pattern: Regular 06-20-2023 13:48-0500 Systolic blood pressure 179 mm[Hg] ARIANNA LIPSCOMB RN [facility], [employer] [facility] [employer] [facility], [employer] Comment on above: Patient Position: Sitting; Cuff Location : Left Arm; Cuff Size: Large 07-24-2022 14:51-0400 Body height 164.47 cm Dorcas Webb RN [facility], [facility].; [facility], [employer] 07-24-2022 14:51-0400 Body mass index (BMI) [Ratio] 36.56 kg/m2 Dorcas Webb RN [facility], [facility].; [facility], [employer] 07-24-2022 14:51-0400 Body surface area Derived from formula 2.05 m2 Dorcas Webb RN [facility], [facility].; [facility], [employer] 07-24-2022 14:51-0400 Body weight 98.88 kg Dorcas Webb RN [facility], [facility].; [facility], [employer] 07-24-2022 14:51-0400 Diastolic blood pressure 70 mm[Hg] Dorcas Webb RN [facility], [employer].; [employer] [facility] [employer] [facility], [employer] Comment on above: Patient Position: Sitting; Cuff Location : Left Arm; Cuff Size: Standard 07-24-2022 14:51-0400 Heart rate 52 /min Dorcas Webb RN [facility], [facility].; [facility] [employer] [facility], [employer] Comment on above: Pattern: Regular 07-24-2022 14:51-0400 Systolic blood pressure 155 mm[Hg] Dorcas Webb RN [facility], [facility].; [facility] [employer] [facility], [employer] Comment on above: Patient Position: Sitting; Cuff Location : Left Arm; Cuff Size: Standard 07-21-2021 10:08-0400 Body height 164.47 cm Mar Sr RN [facility], [facility].; [facility], [employer] 07-21-2021 10:08-0400 Body mass index (BMI) [Ratio] 35.22 kg/m2 Mar Sr RN [facility], [facility].; [facility], [employer] 07-21-2021 10:08-0400 Body surface area Derived from formula 2.01 m2 Mar Sr RN [facility], Inc.; [facility] [employer] [facility], [employer] 07-21-2021 10:08-0400 Body weight 95.26 kg Mar Sr RN [facility], [employer].; [employer] [facility] [employer] [facility], [employer] 07-21-2021 10:08-0400 Diastolic blood pressure 74 mm[Hg] Mar Sr RN [facility] [employer] [facility], [employer].; [employer] [facility] [employer] [facility], [employer] Comment on above: Patient Position: Sitting; Cuff Location : Left Arm; Cuff Size: Large 07-21-2021 10:08-0400 Heart rate 49 /min Mar Sr RN [facility] [employer] [facility], [employer].; [employer] [facility] [employer] [facility], [employer] Comment on above: Pattern: Regular 07-21-2021 10:08-0400 Systolic blood pressure 137 mm[Hg] Mar Sr RN [facility] [employer] [facility], [employer].; [email or web address] [facility] [employer] [facility], [employer] Comment on above: Patient Position: Sitting; Cuff Location : Left Arm; Cuff Size: Large 06-21-2020 13:090500 Body height 164.47 cm Dorcas Webb RN [facility] [employer] [facility], [employer].; [employer] [facility] [employer] [facility], [employer] 06-21-2020 13:09-0500 Body mass index (BMI) [Ratio] 35.22 kg/m2 Dorcas Webb RN [facility] [employer] [facility], [employer].; [employer] [facility] [employer] [facility], [employer] 06-21-2020 13:09-0500 Body surface area Derived from formula 2.01 m2 Dorcas Webb RN [facility] [employer] [facility], Inc.; [employer] [facility] [employer] [facility], [employer] 06-21-2020 13:09-0500 Body temperature 98.1 [degF] Dorcas Webb RN [facility] [employer] [facility], Inc.; [employer] [facility] [employer] [facility], [employer] Comment on above: Method: Oral 06-21-2020 13:09-0500 Body weight 95.26 kg Dorcas Webb RN [facility] [employer] [facility], [employer].; [employer] [facility] [employer] [facility], [employer] 06-21-2020 13:09-0500 Diastolic blood pressure 87 mm[Hg] Dorcas Webb RN [facility] [employer] [facility], [employer].; [employer] [facility], Inc. Comment on above: Patient Position: Sitting; Cuff Location : Left Arm; Cuff Size: Standard 06-21-2020 13:09-0500 Heart rate 60 /min Dorcas Webb RN [facility], [employer].; [email or web address] [facility] [employer] [facility], [employer] Comment on above: Pattern: Regular 06-21-2020 13:09-0500 Systolic blood pressure 152 mm[Hg] Dorcas Webb RN [facility] [employer] [facility], Inc.; [employer] [facility] [employer] [facility], Inc[employer] Comment on above: Patient Position: Sitting; Cuff Location : Left Arm; Cuff Size: Standard 04-14-2020 09:36-0500 Body Temperature 97 [degF] [facility] 04-05-2020 13:11-0500 Body height 164.47 cm Monique Vargas RN [facility], [employer].; [employer] [facility] [employer] [facility], [employer] 04-05-2020 13:11-0500 Body mass index (BMI) [Ratio] 33.71 kg/m2 Monique Vargas RN [facility] [employer] [facility], Inc.; [employer] [facility] [employer] [facility], [employer] 04-05-2020 13:11-0500 Body surface area Derived from formula 1.98 m2 Monique Vargas RN [facility] [employer] [facility], Inc.; [facility] [employer] [facility], [employer] 04-05-2020 13:11-0500 Body weight 91.17 kg Monique Vargas RN [facility] [employer] [facility], Inc.; [employer] [facility] [employer] [facility], [employer] 04-05-2020 13:11-0500 Diastolic blood pressure 84 mm[Hg] Monique Vargas RN [facility] [employer] [facility], Inc.; [employer] [facility] [employer] [facility], [employer] Comment on above: Patient Position: Sitting; Cuff Location : Left Arm; Cuff Size: Large 04-05-2020 13:11-0500 Heart rate 71 /min Monique Vargas RN [facility] [employer] [facility], [employer].; [email or web address] [facility] [employer] Comment on above: Pattern: Regular 04-05-2020 13:11-0500 Systolic blood pressure 150 mm[Hg] Monique Vargas RN [facility] [employer] [facility], [employer].; [email or web address] [facility]. Comment on above: Patient Position: Sitting; Cuff Location : Left Arm; Cuff Size: Large 03-27-2020 05:57-0500 Body Temperature 98.8 [degF] [facility] 03-27-2020 05:57-0500 BP Diastolic 75 mm[Hg] [facility] 03-27-2020 05:57-0500 BP Systolic 132 mm[Hg] [facility] 03-27-2020 05:57-0500 Pulse (Heart Rate) 65 /min [facility] 03-27-2020 05:57-0500 Pulse Oximetry 93 % [facility] 03-27-2020 05:57-0500 Respiratory Rate 16 /min [facility] 03-21-2020 08:10-0500 BMI (Body Mass Index) 34.87 kg/m2 [facility] 03-21-2020 08:10-0500 Body weight 98 kg [facility] 03-19-2020 16:04-0500 Height 167.6 cm [facility] 03-19-2020 14:30-0500 BP Diastolic 66 mm[Hg] [facility] 03-19-2020 14:30-0500 BP Systolic 141 mm[Hg] [facility] 03-19-2020 14:30-0500 Pulse Oximetry 97 % [facility] 03-19-2020 14:27-0500 BMI (Body Mass Index) 32.93 kg/m2 [facility] 03-19-2020 14:27-0500 Body Temperature 98.6 [degF] [facility] 03-19-2020 14:27-0500 Body weight 92.53 kg [facility] 03-19-2020 14:27-0500 Height 167.6 cm [facility] 03-19-2020 14:27-0500 Pulse (Heart Rate) 72 /min [facility] 03-19-2020 14:27-0500 Respiratory Rate 16 /min [facility] 02-25-2020 09:31-0500 Body Temperature 97.2 [degF] Kyle [facility] 02-03-2020 11:11-0400 BMI (Body Mass Index) 34.16 kg/m2 [facility] 02-03-2020 11:11-0400 Body Temperature 97.81 [degF] [facility] 02-03-2020 11:11-0400 Body weight [address] [facility] 02-03-2020 11:11-0400 BP Diastolic 76 mm[Hg] [facility] 02-03-2020 11:11-0400 BP Systolic 127 mm[Hg] [facility] 02-03-2020 11:11-[address] [facility] 02-03-2020 11:11-0400 Pulse (Heart Rate) 60 /min [facility] 02-03-2020 11:11-0400 Pulse Oximetry 99 % [facility] 02-03-2020 11:11-0400 Respiratory Rate 16 /min [facility] 01-27-2020 15:15-0400 Respiratory Rate 16 /min [facility] 01-27-2020 12:09-0400 Body Temperature 97.9 [degF] [facility] 01-27-2020 12:09-0400 BP Diastolic 81 mm[Hg] [facility] 01-27-2020 12:09-0400 BP Systolic 149 mm[Hg] [facility] 01-27-2020 12:09-0400 Pulse (Heart Rate) 58 /min [facility] 01-27-2020 12:09-0400 Pulse Oximetry 95 % [facility] 12-18-2019 13:07-0400 Body height 164.47 cm Monique Vargas RN [facility], [facility].; [facility]. 12-18-2019 13:07-0400 Body mass index (BMI) [Ratio] 35.55 kg/m2 Monique Vargas RN [facility], [facility].; [facility]. 12-18-2019 13:07-0400 Body surface area Derived from formula 2.02 m2 Monique Vargas RN [facility], [facility].; [facility]. 12-18-2019 13:07-0400 Body temperature 98.3 [degF] Monique Vargas RN [facility], [facility].; [facility], [employer]. Comment on above: Method: Oral 12-18-2019 13:07-0400 Body weight 96.16 kg Monique Vargas RN [facility], [employer] [facility] [employer] 12-18-2019 13:07-0400 Diastolic blood pressure 68 mm[Hg] Monique Vargas RN [facility], [employer] [facility] [employer] [facility], [employer]. Comment on above: Patient Position: Sitting; Cuff Location : Left Arm; Cuff Size: Large 12-18-2019 13:07-0400 Heart rate 64 /min Monique Vargas RN [facility], [employer].; [facility], [employer] Comment on above: Pattern: Regular 12-18-2019 13:07-0400 Inhaled oxygen concentration 21 % Monique Vargas RN [facility], [employer].; [facility], [employer] Comment on above: Room air 12-18-2019 13:07-0400 SaO2% (BldA) [Mass fraction] 93 % Monique Vargas RN [facility], [facility].; [facility], [employer] 12-18-2019 13:07-0400 Systolic blood pressure 140 mm[Hg] Monique Vargas RN [facility], [employer].; [employer] [facility] [employer] [facility], [employer] Comment on above: Patient Position: Sitting; Cuff Location : Left Arm; Cuff Size: Large 12-10-2019 15:51-0400 Body height 164.47 cm Mar Sr RN [facility], [facility].; Its Time Compliance [facility], [facility] 12-10-2019 15:51-0400 Body mass index (BMI) [Ratio] 36.66 kg/m2 aMr Sr RN [facility], [facility].; [facility], [facility] 12-10-2019 15:51-0400 Body surface area Derived from formula 2.05 m2 Mar Sr RN [facility], [facility].; Its Time Compliance [facility], [employer]. 12-10-2019 15:51-0400 Body temperature 99.1 [degF] Mar Sr RN [facility], [employer] Its Time Compliance [facility] [employer], [employer]. [facility] Comment on above: Method: Oral 12-10-2019 15:51-0400 Body weight 99.16 kg Mar Sr RN [facility], [facility].; Its Time Compliance [facility] [employer], [employer]. [facility], [facility] 12-10-2019 15:51-0400 Diastolic blood pressure 75 mm[Hg] Mar Sr RN [facility], [employer] Its Time Compliance [facility] [employer], [employer]. [facility], [facility]. Comment on above: Patient Position: Sitting; Cuff Location : Left Arm; Cuff Size: Large 12-10-2019 15:51-0400 Heart rate 62 /min Mar Sr RN [facility], [employer] Its Time Compliance [facility] [employer], [employer]. [facility], [facility] Comment on above: Pattern: Regular 12-10-2019 15:51-0400 Inhaled oxygen concentration 21 % Mar Sr RN [facility] Its Time Compliance [facility] [employer], [employer]. [facility], [facility]. Comment on above: Room air 12-10-2019 15:51-0400 SaO2% (BldA) [Mass fraction] 93 % Mar Sr RN [facility], [employer].; Its Time Compliance [facility], Inc[facility] 12-10-2019 15:51-0400 Systolic blood pressure 135 mm[Hg] Mar Sr RN [facility], [employer].; Its Time Compliance [facility] [employer], [employer]. [facility], [facility] Comment on above: Patient Position: Sitting; Cuff Location : Left Arm; Cuff Size: Large 09-29-2019 14:25-0400 Body height 164.47 cm Monique Vargas RN [facility] Its Time Compliance [facility] [employer], [employer]. [facility] 09-29-2019 14:25-0400 Body mass index (BMI) [Ratio] 36.73 kg/m2 Monique Vargas RN [facility], [employer].; Its Time Compliance [facility] [employer], [employer]. [facility] 09-29-2019 14:25-0400 Body surface area Derived from formula 2.05 m2 Monique Vargas RN [facility] [employer], [employer]. [facility], [employer].; Its Time Compliance [facility] [employer], [employer]. [facility], [employer]. 09-29-2019 14:25-0400 Body temperature 99.4 [degF] Monique Vargas RN [facility].; Its Time Compliance [facility] [employer], [employer]. [facility], [facility]. Comment on above: Method: Oral 09-29-2019 14:25-0400 Body weight 99.34 kg Monique Vargas RN [facility] Its Time Compliance [facility], [facility]. 09-29-2019 14:25-0400 Diastolic blood pressure 73 mm[Hg] Monique Vargas RN [facility].; [facility] [employer], [employer]. [facility], [facility] Comment on above: Patient Position: Sitting; Cuff Location : Left Arm; Cuff Size: Large 09-29-2019 14:25-0400 Heart rate 73 /min Monique Vargas RN [facility] Its Time Compliance [facility] [employer], [employer]. [facility], [employer]. Comment on above: Pattern: Regular 09-29-2019 14:25-0400 Systolic blood pressure 152 mm[Hg] Monique Vargas RN [facility] Its Time Compliance [facility] [employer], [employer]. [facility], [facility] Comment on above: Patient Position: Sitting; Cuff Location : Left Arm; Cuff Size: Large 05-15-2019 09:57-0500 Body height 164.47 cm Monique Vargas RN [facility].; [facility] 05-15-2019 09:57-0500 Body mass index (BMI) [Ratio] 36.22 kg/m2 Monique Vargas RN [facility].; [facility], [facility] 05-15-2019 09:57-0500 Body surface area Derived from formula 2.04 m2 Monique Vargas RN [facility].; [facility], Inc[facility] 05-15-2019 09:57-0500 Body weight 97.98 kg Monique Vargas RN [facility].; [facility] [employer], [employer]. [facility] 05-15-2019 09:57-0500 Diastolic blood pressure 75 mm[Hg] Monique Vargas RN [facility].; [facility] [employer], [employer]. [facility], [facility] Comment on above: Patient Position: Sitting; Cuff Location : Left Arm; Cuff Size: Large 05-15-2019 09:57-0500 Heart rate 51 /min Monique Vargas RN [facility] [employer] [facility], [employer], [employer]. Comment on above: Pattern: Regular 05-15-2019 09:57-0500 Systolic blood pressure 143 mm[Hg] Monique Vargas RN [facility] [employer] [facility] [employer], [employer] Comment on above: Patient Position: Sitting; Cuff Location : Left Arm; Cuff Size: Large 04-17-2019 14:56-0500 Body height 164.47 cm Monique Vargas RN [facility] [employer] [facility].; Its Time Compliance [facility] [employer], [employer] 04-17-2019 14:56-0500 Body mass index (BMI) [Ratio] 36.15 kg/m2 [facility] Its Time Compliance [facility] [employer] [facility] 04-17-2019 14:56-0500 Body surface area Derived from formula 2.04 m2 Monique Vargas RN [facility] [employer] [facility].; Its Time Compliance [employer], [employer] 04-17-2019 14:56-0500 Body temperature 97.7 [degF] Monique Vargas RN [facility] [employer] [facility].; [email or web address] [facility] [employer] [employer] Comment on above: Method: Oral 04-17-2019 14:56-0500 Body weight 97.8 kg Monique Vargas RN [facility] [employer] [facility].; Its Time Compliance [facility] [employer], [employer] 04-17-2019 14:56-0500 Diastolic blood pressure 79 mm[Hg] Monique Vargas RN [facility] [employer] [facility], [facility].; [employer], [employer] Comment on above: Patient Position: Sitting; Cuff Location : Left Arm; Cuff Size: Large 04-17-2019 14:56-0500 Heart rate 62 /min Monique Vargas RN [facility] [employer] [facility] [employer], [employer] Comment on above: Pattern: Regular 04-17-2019 14:56-0500 Systolic blood pressure 144 mm[Hg] [facility] [email or web address] [facility] [employer] [facility] Comment on above: Patient Position: Sitting; Cuff Location : Left Arm; Cuff Size: Large 11-07-2018 13:02-0400 Body height 164.47 cm Mar Sr RN [facility].; [email or web address] [facility] [employer], [employer]. [facility] 11-07-2018 13:02-0400 Body mass index (BMI) [Ratio] 35.99 kg/m2 Mar Sr RN [facility] [employer], [employer]. [facility], [facility].; Its Time Compliance [facility] [employer] [facility] 11-07-2018 13:02-0400 Body surface area Derived from formula 2.03 m2 Mar Sr RN [facility] [employer], [employer]. [facility], [facility].; Its Time Compliance [facility] [place] [employer], [employer] [facility] 11-07-2018 13:02-0400 Body weight 97.34 kg Mar Sr RN [facility] [employer], [employer] [facility].; Its Time Compliance [facility] [place] [employer], [employer] [facility] 11-07-2018 13:02-0400 Diastolic blood pressure 75 mm[Hg] [facility] Its Time Compliance [facility] [employer], [employer] Comment on above: Patient Position: Sitting; Cuff Location : Left Arm; Cuff Size: Large 11-07-2018 13:02-0400 Heart rate 54 /min Mar Sr RN [facility] [employer], [employer]. [facility], [employer].; Its Time Compliance [facility] [employer], [employer] Comment on above: Pattern: Regular 11-07-2018 13:02-0400 Systolic blood pressure 123 mm[Hg] Mar Sr RN [facility] [employer], [employer]. [facility].; Its Time Compliance [facility] [employer] [facility], [facility]. Comment on above: Patient Position: Sitting; Cuff Location : Left Arm; Cuff Size: Large 05-08-2018 13:130500 Body height 166.37 cm Mar Sr RN [facility] [employer], [employer]. [facility].; Its Time Compliance [facility] [place] [employer], [employer]. [facility] 05-08-2018 13:13-0500 Body mass index (BMI) [Ratio] 35.89 kg/m2 Mar Sr RN [facility] [employer], [employer]. [facility].; Its Time Compliance [facility] [place] [employer], [employer]. [facility] 05-08-2018 13:13-0500 Body surface area Derived from formula 2.07 m2 Mar Sr RN [facility] [employer], [employer]. [facility].; [employer], [employer] 05-08-2018 13:13-0500 Body weight 99.34 kg aMr Sr RN [facility] [employer], [employer]. [facility] [employer], [employer] 05-08-2018 13:13-0500 Diastolic blood pressure 82 mm[Hg] Mar Sr RN [facility] [employer] [facility] [employer], [employer] Comment on above: Patient Position: Sitting; Cuff Location : Left Arm; Cuff Size: Large 05-08-2018 13:13-0500 Heart rate 55 /min Mar Sr RN [facility] [employer] [facility] [employer], [employer] Comment on above: Pattern: Regular 05-08-2018 13:13-0500 Systolic blood pressure 153 mm[Hg] Mar Sr RN [facility] [employer] [facility] [employer], [employer] Comment on above: Patient Position: Sitting; Cuff Location : Left Arm; Cuff Size: Large 11-07-2017 14:49-0400 Body height 166.37 cm Dorcas Webb RN [facility] [employer] [employer] [facility] [employer], [employer] 11-07-2017 14:49-0400 Body mass index (BMI) [Ratio] 35.89 kg/m2 Dorcas Webb RN [facility] [employer], [employer]. [facility].; [employer], [employer] 11-07-2017 14:49-0400 Body surface area Derived from formula 2.07 m2 Dorcas Webb RN [facility] [employer], [employer]. [facility] [employer], [employer] 11-07-2017 14:49-0400 Body temperature 97.8 [degF] Dorcas Webb RN [facility] [employer] [employer] [employer], [employer] Comment on above: Method: Oral 11-07-2017 14:49-0400 Body weight 99.34 kg Dorcas Webb RN [facility] [employer], [employer] [facility] [employer], [employer] 11-07-2017 14:49-0400 Diastolic blood pressure 74 mm[Hg] Dorcas Webb RN [facility] [employer] [employer], [employer] Comment on above: Patient Position: Sitting; Cuff Location : Left Arm; Cuff Size: Standard 11-07-2017 14:49-0400 Heart rate 58 /min Dorcas Webb RN [facility] [employer], [employer] [facility] [employer], [employer] Comment on above: Pattern: Regular 11-07-2017 14:49-0400 Systolic blood pressure 135 mm[Hg] Dorcas Webb RN [facility] [employer], [employer] [facility] [employer], [employer] Comment on above: Patient Position: Sitting; Cuff Location : Left Arm; Cuff Size: Standard 03-07-2017 10:05-0500 Body height 166.37 cm Dorcas Webb RN [facility] [employer], [employer]. [facility].; Its Time Compliance [facility] [facility] [employer] 03-07-2017 10:05-0500 Body mass index (BMI) [Ratio] 35.72 kg/m2 Dorcas Webb RN [facility] [employer], [employer]. [facility].; Its Time Compliance [employer] 03-07-2017 10:05-0500 Body surface area Derived from formula 2.06 m2 Dorcas Webb RN [facility] [employer], [employer]. [facility].; [employer], [employer] 03-07-2017 10:05-0500 Body temperature 98.5 [degF] Dorcas Webb RN [facility] [employer], [employer]. [facility] [employer], [employer] Comment on above: Method: Oral 03-07-2017 10:05-0500 Body weight 98.88 kg Dorcas Webb RN [facility] [employer], [employer]. [facility].; Its Time Compliance [facility] [employer], [employer] 03-07-2017 10:05-0500 Diastolic blood pressure 76 mm[Hg] Dorcas Webb RN [facility] [employer], [employer]. [facility] [employer], [employer] Comment on above: Patient Position: Sitting; Cuff Location : Left Arm; Cuff Size: Standard 03-07-2017 10:05-0500 Heart rate 51 /min Dorcas Webb RN [facility] [employer], [employer]. [facility] [employer], [employer] Comment on above: Pattern: Regular 03-07-2017 10:05-0500 Systolic blood pressure 121 mm[Hg] Dorcas Webb RN [facility] [employer], [employer]. [facility].; Its Time Compliance [facility] [employer], [employer]. [facility] Comment on above: Patient Position: Sitting; Cuff Location : Left Arm; Cuff Size: Standard 09-06-2016 09:01-0400 Body height 166.37 cm Mar Sr RN [facility] Its Time Compliance [facility] [employer], [employer]. [facility] 09-06-2016 09:01-0400 Body mass index (BMI) [Ratio] 35.56 kg/m2 Mar Sr RN [facility].; Its Time Compliance [facility] 09-06-2016 09:01-0400 Body surface area Derived from formula 2.06 m2 Mar Sr RN [facility] [employer], [employer]. [facility].; Its Time Compliance [facility] [employer], [employer]. [facility] 09-06-2016 09:01-0400 Body weight 98.43 kg Mar Sr RN [facility] [employer], [employer]. [facility].; Its Time Compliance [facility] [employer], [employer]. [facility] 09-06-2016 09:01-0400 Diastolic blood pressure 81 mm[Hg] Mar Sr RN [facility] [employer], [employer]. [facility], [employer].; Its Time Compliance [facility] [employer], [employer]. [facility] Comment on above: Patient Position: Sitting; Cuff Location : Left Arm; Cuff Size: Large 09-06-2016 09:01-0400 Heart rate 50 /min Mar Sr RN [facility] [employer], [employer]. [facility], [employer].; Its Time Compliance [facility] [employer], [employer]. [facility] Comment on above: Pattern: Regular 09-06-2016 09:01-0400 Systolic blood pressure 142 mm[Hg] Mar Sr RN [facility] [employer], [employer]. [facility].; Its Time Compliance [facility] [employer], [employer]. [facility] Comment on above: Patient Position: Sitting; Cuff Location : Left Arm; Cuff Size: Large 04-18-2016 14:02-0500 Body height 166.37 cm Mar Sr RN [facility] [employer], [employer]. [facility].; Its Time Compliance [facility] [employer] [employer]. [facility] 04-18-2016 14:02-0500 Body mass index (BMI) [Ratio] 34.87 kg/m2 Mar rS RN [facility] [employer], [employer]. [facility].; Its Time Compliance [facility] [employer], [employer]. [facility] 04-18-2016 14:02-0500 Body surface area Derived from formula 2.04 m2 Mar Sr RN [facility] Its Time Compliance [employer] 04-18-2016 14:02-0500 Body weight 96.53 kg Mar Sr RN [facility] [employer], [employer]. [facility].; Its Time Compliance [employer] [facility] 04-18-2016 14:02-0500 Diastolic blood pressure 79 mm[Hg] Mar Sr RN [facility] [employer] [employer]. [facility] [employer], [employer] Comment on above: Patient Position: Sitting; Cuff Location : Left Arm; Cuff Size: Large 04-18-2016 14:02-0500 Heart rate 65 /min Mar Sr RN [facility] [employer] [facility] [employer], [employer] Comment on above: Pattern: Regular 04-18-2016 14:02-0500 Systolic blood pressure 149 mm[Hg] [facility] [employer], [employer] Comment on above: Patient Position: Sitting; Cuff Location : Left Arm; Cuff Size: Large 02-07-2016 11:100400 Body height 166.37 cm Dorcas Webb RN [facility] [employer] [facility] Its Time Compliance [employer] 02-07-2016 11:10-0400 Body mass index (BMI) [Ratio] 36.05 kg/m2 Dorcas Webb RN [facility] [employer], [employer] [facility] [employer], [employer] 02-07-2016 11:10-0400 Body surface area Derived from formula 2.07 m2 Dorcas Webb RN [facility] [employer], [employer]. [facility].; Its Time Compliance [employer] 02-07-2016 11:10-0400 Body temperature 98.3 [degF] Dorcas Webb RN [facility] [employer] [employer] [facility] [employer], [employer] Comment on above: Method: Oral 02-07-2016 [id number]:[id number] Body weight 99.79 kg Dorcas Webb RN [facility] [employer], [employer] [facility] [employer], [employer] 02-07-2016 11:10-0400 Diastolic blood pressure 67 mm[Hg] Dorcas Webb RN [facility] [employer] [employer] [facility] [employer], [employer] Comment on above: Patient Position: Sitting; Cuff Location : Left Arm; Cuff Size: Standard 02-07-2016 11:10-0400 Heart rate 53 /min Dorcas Webb RN [facility] [employer], [employer] [facility] [employer] [facility] Inc[facility] Comment on above: Pattern: Regular 02-07-2016 11:10-0400 Systolic blood pressure 104 mm[Hg] Dorcas Webb RN [facility] [employer] [facility] [employer], [employer] Comment on above: Patient Position: Sitting; Cuff Location : Left Arm; Cuff Size: Standard 08-09-2015 09:20-0400 Body height 167.64 cm Dorcas Webb RN [facility] [employer] [facility].; Its Time Compliance [facility] [employer] [facility] 08-09-2015 09:20-0400 Body mass index (BMI) [Ratio] 35.35 kg/m2 Dorcas Webb RN [facility] [employer] [employer] [facility].; Its Time Compliance [facility] [employer] [facility] 08-09-2015 09:20-0400 Body surface area Derived from formula 2.08 m2 Dorcas Webb RN [facility] [employer], [employer] [facility] [employer], [employer] 08-09-2015 09:20-0400 Body temperature 97.9 [degF] Dorcas Webb RN [facility] [employer] [facility] [employer], [employer] Comment on above: Method: Oral 08-09-2015 09:20-0400 Body weight 99.34 kg Dorcas Webb RN [facility] [employer] [employer] [facility].; Its Time Compliance [facility] [place] [employer] [employer] [facility] 08-09-2015 09:20-0400 Diastolic blood pressure 70 mm[Hg] Dorcas Webb RN [facility] [employer] [employer] [facility] [employer], [employer] Comment on above: Patient Position: Sitting; Cuff Location : Left Arm; Cuff Size: Standard 08-09-2015 09:20-0400 Heart rate 52 /min Dorcas Webb RN [facility] [employer] [employer] [facility] [employer], [employer] Comment on above: Pattern: Regular 08-09-2015 09:20-0400 Inhaled oxygen concentration 21 % Dorcas Webb RN [facility] [employer] [employer] [facility] [employer], [employer]. Comment on above: Room air 08-09-2015 09:20-0400 SaO2% (BldA) [Mass fraction] 96 % Dorcas Webb RN [facility] [employer] [employer] [facility].; Its Time Compliance [employer] [facility] [employer] 08-09-2015 09:20-0400 Systolic blood pressure 122 mm[Hg] Dorcas Webb RN [facility] [employer] [employer] [facility] [employer] Comment on above: Patient Position: Sitting; Cuff Location : Left Arm; Cuff Size: Standard 07-05-2015 10:46-0400 Body height 165.1 cm Dorcas Webb RN [facility] [employer] [employer] [facility] [employer] Its Time Compliance [facility] [employer] [employer] [facility] 07-05-2015 10:46-0400 Body mass index (BMI) [Ratio] 37.11 kg/m2 Dorcas Webb RN [facility] [employer] [employer] [facility].; Its Time Compliance [facility] [employer] [facility] 07-05-2015 10:46-0400 Body surface area Derived from formula 2.07 m2 Dorcas Webb RN [facility] [employer], [employer] [facility], [employer] Its Time Compliance [employer] [facility] [employer] 07-05-2015 10:46-0400 Body temperature 98.6 [degF] Dorcas Webb RN [facility] [employer] [facility].; [employer], [employer] Comment on above: Method: Oral 07-05-2015 10:46-0400 Body weight 101.15 kg Dorcas Webb RN [facility] [employer] [facility], Inc.; [email or web address] [facility], Inc. 07-05-2015 10:46-0400 Diastolic blood pressure 66 mm[Hg] Dorcas Webb RN [facility] [employer] [facility] IllSn[employer]rends Inc.; [employer], [employer]. Comment on above: Patient Position: Sitting; Cuff Location : Left Arm; Cuff Size: Standard 07-05-2015 10:46-0400 Heart rate 54 /min Dorcas Webb RN [facility] [employer] [facility], Inc.; [employer], [employer]. Comment on above: Pattern: Regular 07-05-2015 10:46-0400 Systolic blood pressure 106 mm[Hg] Dorcas Webb RN [facility] [employer] [facility] IllSn[facility] [employer]rends Inc.; [employer], [employer]. Comment on above: Patient Position: Sitting; Cuff Location : Left Arm; Cuff Size: Standard 06-21-2015 14:27-0500 Body height 165.1 cm Monique Vargas RN [facility], Inc.; [facility], Inc. 06-21-2015 14:27-0500 Body mass index (BMI) [Ratio] 37.11 kg/m2 Monique Vargas RN [facility], Inc.; [facility], Inc. 06-21-2015 14:27-0500 Body surface area Derived from formula 2.07 m2 Monique Vargas RN [facility], Inc.; [facility], [employer]. 06-21-2015 14:27-0500 Body weight 101.15 kg Monique Vargas RN [facility], Inc.; [facility] [employer] [facility], [employer]. 06-21-2015 14:27-0500 Diastolic blood pressure 75 mm[Hg] Monique Vargas RN [facility] [employer] [facility], Inc.; [employer] [facility] [employer] [facility], [employer]. Comment on above: Patient Position: Sitting; Cuff Location : Left Arm; Cuff Size: Large 06-21-2015 14:27-0500 Heart rate 58 /min Monique Vargas RN [facility] [employer] [facility], Inc.; [facility] [employer] [facility], Inc. Comment on above: Pattern: Regular 06-21-2015 14:27-0500 Systolic blood pressure 121 mm[Hg] Monique Vargas RN [facility] [employer] [facility], Inc.; [employer] [facility] [employer]. [facility], Inc. Comment on above: Patient Position: Sitting; Cuff Location : Left Arm; Cuff Size: Large 06-10-2015 13:05-0500 Body height 165.1 cm Monique Vargas RN [facility] [employer] [facility], Inc.; [employer] [facility] [employer] [facility], [employer]. 06-10-2015 13:05-0500 Body mass index (BMI) [Ratio] 37.61 kg/m2 Monique Vargas RN [facility] [employer] [facility], Inc.; [employer] [facility] [employer] [facility], Inc. 06-10-2015 13:05-0500 Body surface area Derived from formula 2.08 m2 Monique Vargas RN [facility], Inc.; [facility] [employer] [facility], Inc. 06-10-2015 13:05-0500 Body weight 102.51 kg Monique Vargas RN [facility], Inc.; [facility] [employer] [facility], Inc. 06-10-2015 13:05-0500 Diastolic blood pressure 83 mm[Hg] Monique Vargas RN [facility], Inc.; [employer] [facility] [employer] [facility], Inc. Comment on above: Patient Position: Sitting; Cuff Location : Left Arm; Cuff Size: Large 06-10-2015 13:05-0500 Heart rate 61 /min Monique Vargas RN [facility], Inc.; [facility] [employer] [facility], Inc. Comment on above: Pattern: Regular 06-10-2015 13:05-0500 Systolic blood pressure 151 mm[Hg] Monique Vargas RN [facility] [employer] [facility], Inc.; [employer] [facility] [employer] [facility], Inc. Comment on above: Patient Position: Sitting; Cuff Location : Left Arm; Cuff Size: Large 05-17-2015 10:01-0500 Body height 165.74 cm Monique Vargas RN [facility] [employer] [facility], Inc.; [facility], Inc. 05-17-2015 10:01-0500 Body mass index (BMI) [Ratio] 37.32 kg/m2 Monique Vargas RN [facility] [employer] [facility], Inc.; [facility] [employer] [facility], Inc. 05-17-2015 10:01-0500 Body surface area Derived from formula 2.09 m2 Monique Vargas RN [facility] [employer] [facility], Inc.; [employer] [facility] [employer] [facility], Inc. 05-17-2015 10:01-0500 Body temperature 97.7 [degF] Monique Vargas RN [facility] [employer] [facility], Inc.; [employer] [facility] [employer] [facility], Inc. Comment on above: Method: Oral 05-17-2015 10:01-0500 Body weight 102.51 kg Monique Vargas RN [facility] [employer] [facility], Inc.; [employer] [facility] [employer] [facility], Inc. 05-17-2015 10:01-0500 Diastolic blood pressure 83 mm[Hg] Monique Vargas RN [facility] [employer] [facility], Inc.; [employer] [facility] [employer] [facility], Inc. Comment on above: Patient Position: Sitting; Cuff Location : Left Arm; Cuff Size: Large 05-17-2015 10:01-0500 Heart rate 57 /min Monique Vargas RN [facility] [employer] [facility], Inc.; [email or web address] [facility] [employer] [facility], Inc. Comment on above: Pattern: Regular 05-17-2015 10:01-0500 Systolic blood pressure 137 mm[Hg] Moniuqe [facility], Inc.; [email or web address] [facility] [employer] [facility], Inc. Comment on above: Patient Position: Sitting; Cuff Location : Left Arm; Cuff Size: Large 03-22-2015 09:14-0500 Body height 165.1 cm Dorcas Webb RN [facility] [employer] [facility], Inc.; [employer] [facility] [employer]. [facility], Inc. 03-22-2015 09:14-0500 Body mass index (BMI) [Ratio] 37.77 kg/m2 Dorcas Webb RN [facility] [employer] [facility], Inc.; [employer] [facility] [employer] [facility], Inc. 03-22-2015 09:14-0500 Body surface area Derived from formula 2.09 m2 Dorcas Webb RN [facility] [employer]. [facility], Inc.; [employer] [facility] [employer]. [facility], Inc. 03-22-2015 09:14-0500 Body temperature 98.7 [degF] Dorcas Webb RN [facility] [employer] [facility], Inc.; [employer] [facility] [employer] [facility], Inc. Comment on above: Method: Oral 03-22-2015 09:14-0500 Body weight 102.97 kg Dorcas Webb RN [facility] [employer] [facility], Inc.; [employer] [facility] [employer] [facility], Inc. 03-22-2015 09:14-0500 Diastolic blood pressure 76 mm[Hg] Dorcas Webb RN [facility] [employer] [facility], Inc.; [email or web address] [facility] [employer], [employer]. Comment on above: Patient Position: Sitting; Cuff Location : Left Arm; Cuff Size: Standard 03-22-2015 09:14-0500 Heart rate 58 /min Dorcas Webb RN [facility] [employer] [facility], Inc.; [email or web address] [facility] [employer], [employer]. Comment on above: Pattern: Regular 03-22-2015 09:14-0500 Systolic blood pressure 126 mm[Hg] Dorcas Webb RN [facility], Inc.; [employer] [facility] [employer] [facility], Inc. Comment on above: Patient Position: Sitting; Cuff Location : Left Arm; Cuff Size: Standard 09-28-2014 09:08-0400 Body height 167.64 cm Dorcas Webb RN [facility], Inc.; [employer] [facility] [employer] [facility], Inc. 09-28-2014 09:08-0400 Body mass index (BMI) [Ratio] 37.12 kg/m2 Dorcas Webb RN [facility], Inc.; [facility] [employer]. [facility], Inc. 09-28-2014 09:08-0400 Body surface area Derived from formula 2.12 m2 Dorcas Webb RN [facility], Inc.; [facility] [employer]. [facility], Inc. 09-28-2014 09:08-0400 Body temperature 98.5 [degF] Dorcas Webb RN [facility], Inc.; [employer] [facility] [employer] [facility], Inc. Comment on above: Method: Oral 09-28-2014 09:08-0400 Body weight 104.33 kg Dorcas Webb RN [facility], Inc.; [employer] [facility] [employer] [facility], Inc. 09-28-2014 09:08-0400 Diastolic blood pressure 81 mm[Hg] Dorcas Webb RN [facility], Inc.; [employer] [facility] [employer] [facility], Inc. Comment on above: Patient Position: Sitting; Cuff Location : Left Arm; Cuff Size: Standard 09-28-2014 09:08-0400 Heart rate 60 /min Dorcas Webb RN [facility], Inc.; [employer] [facility] [employer] [facility], Inc. Comment on above: Pattern: Regular 09-28-2014 09:08-0400 Systolic blood pressure 135 mm[Hg] Dorcas Webb RN [facility] [employer] [facility], Inc.; [employer] [facility] [employer]. [facility], Inc. Comment on above: Patient Position: Sitting; Cuff Location : Left Arm; Cuff Size: Standard 04-30-2014 10:42-0500 Body height 167 cm DANNIELLE KAPLAN [facility] [employer] [facility], Inc.; [employer] [facility] [employer]. [facility], Inc. 04-30-2014 10:42-0500 Body mass index (BMI) [Ratio] 36.35 kg/m2 DANNIELLE Clark KAPLAN [facility] [employer] [facility], Inc.; [facility] [employer]. [facility], Inc. 04-30-2014 10:42-0500 Body surface area Derived from formula 2.09 m2 DANNIELLE KAPLAN [facility] [employer] [facility], Inc.; [facility] [employer]. [facility], Inc. 04-30-2014 10:42-0500 Body weight 101.38 kg DANNIELLE [facility]LAN [facility], Inc.; [facility] [employer] [facility], Inc. 04-30-2014 10:42-0500 Diastolic blood pressure 79 mm[Hg] D[facility]NIELLE Clark [facility], Inc.; [facility] [employer]. [facility], Inc. Comment on above: Patient Position: Sitting; Cuff Location : Left Arm; Cuff Size: Standard 04-30-2014 10:42-0500 Heart rate 58 /min DANNIELLE Clark [facility], Inc.; [facility] [employer]. [facility], Inc. Comment on above: Pattern: Regular 04-30-2014 10:42-0500 Systolic blood pressure 129 mm[Hg] DANNIELLE Clark [facility] [employer] [facility] IllSnap [employer]rends Inc.; [facility] [employer]. [facility], Inc. Comment on above: Patient Position: Sitting; Cuff Location : Left Arm; Cuff Size: Standard 06-30-2013 15:36-0400 Body height 165.1 cm Monique [facility] RN [facility], Inc.; [facility] [employer] [facility], Inc. 06-30-2013 15:36-0400 Body mass index (BMI) [Ratio] 34.95 kg/m2 Monique [facility]as RN [facility], [facility].; [facility] [employer] [facility], Inc. 06-30-2013 15:36-0400 Body surface area Derived from formula 2.02 m2 Monique [facility]argas RN [facility], [employer].; [facility] [employer]. [facility], Inc. 06-30-2013 15:36-0400 Body weight 95.26 kg Monique [facility] RN [facility], Inc.; [facility] [employer]. [facility], Inc. 06-30-2013 15:36-0400 Diastolic blood pressure 76 mm[Hg] Monique Vargas RN [facility], Inc.; [employer] [facility] [employer] [facility], Inc. Comment on above: Patient Position: Sitting; Cuff Location : Left Arm; Cuff Size: Large 06-30-2013 15:36-0400 Heart rate 88 /min Monique Vargas RN [facility], Inc.; [employer] [facility] [employer] [facility], Inc. Comment on above: Pattern: Regular 06-30-2013 15:36-0400 Systolic blood pressure 126 mm[Hg] Monique Vargas RN [facility], Inc.; [employer] [facility] [employer]. [facility], Inc. Comment on above: Patient Position: Sitting; Cuff Location : Left Arm; Cuff Size: Large 05-30-2013 13:05-0500 Body height 165.1 cm Monique Vargas RN [facility], Inc.; [facility], Inc. 05-30-2013 13:05-0500 Body mass index (BMI) [Ratio] 37.94 kg/m2 Monique Vargas RN [facility], Inc.; [facility], Inc. 05-30-2013 13:05-0500 Body surface area Derived from formula 2.09 m2 Monique Vargas RN [facility], Inc.; [facility], Inc. 05-30-2013 13:05-0500 Body temperature 97.2 [degF] Monique Vargas RN [facility], Inc.; [employer] [facility] [employer]. [facility], Inc. Comment on above: Method: Oral 05-30-2013 13:05-0500 Body weight 103.42 kg Monique Vargas RN [facility] [employer] [facility], Inc.; [employer] [facility] [employer]. [facility], Inc. 05-30-2013 13:05-0500 Diastolic blood pressure 91 mm[Hg] Monique Vargas RN [facility] [employer]. [facility], Inc.; [employer] [facility] [employer]. [facility], Inc. Comment on above: Patient Position: Sitting; Cuff Location : Left Arm; Cuff Size: Large 05-30-2013 13:05-0500 Heart rate 79 /min Monique Vargas RN [facility] [employer]. [facility], Inc.; [employer] [facility] [employer]. [facility], Inc. Comment on above: Pattern: Regular 05-30-2013 13:05-0500 Systolic blood pressure 160 mm[Hg] Monique Vargas RN [facility], [employer].; [employer] [facility] [employer]. [facility], [employer]. Comment on above: Patient Position: Sitting; Cuff Location : Left Arm; Cuff Size: Large 04-21-2013 08:43-0500 Body height 165.1 cm Dorcas Webb RN [facility], Inc.; [facility] [employer] [facility], Inc. 04-21-2013 08:43-0500 Body mass index (BMI) [Ratio] 38.11 kg/m2 Dorcas Webb RN [facility], Inc.; [facility] [employer]. [facility], Inc. 04-21-2013 08:43-0500 Body surface area Derived from formula 2.1 m2 Dorcas Webb RN [facility], Inc.; [employer] [facility] [employer]. [facility], Inc. 04-21-2013 08:43-0500 Body temperature 98.9 [degF] Dorcas Webb RN [facility], [employer].; [employer] [facility] [employer]. [facility], [employer]. Comment on above: Method: Oral 04-21-2013 08:43-0500 Body weight 103.87 kg Dorcas Webb RN [facility], Inc.; [facility] [employer]. [facility], Inc. 04-21-2013 08:43-0500 Diastolic blood pressure 79 mm[Hg] Dorcas Webb RN [facility], Inc.; [employer] [facility] [employer]. [facility], Inc. Comment on above: Patient Position: Sitting; Cuff Location : Left Arm; Cuff Size: Standard 04-21-2013 08:43-0500 Heart rate 74 /min Dorcas Webb RN [facility], Inc.; [employer] [facility] [employer] [facility], Inc. Comment on above: Pattern: Regular 04-21-2013 08:43-0500 Systolic blood pressure 135 mm[Hg] Dorcas Webb RN [facility], Inc.; [employer] [facility] [employer]. [facility], Inc. Comment on above: Patient Position: Sitting; Cuff Location : Left Arm; Cuff Size: Standard 10-31-2012 15:09-0400 Body height 165.1 cm Monique Vargas RN [facility], Inc.; [facility], Inc. 10-31-2012 15:09-0400 Body mass index (BMI) [Ratio] 36.44 kg/m2 Monique Vargas RN [facility], Inc.; [facility], Inc. 10-31-2012 15:09-0400 Body surface area Derived from formula 2.06 m2 Monique Vargas RN [facility], Inc.; [facility], Inc. 10-31-2012 15:09-0400 Body weight 99.34 kg Monique Vargas RN [facility], [facility].; [facility], Inc. 10-31-2012 15:09-0400 Diastolic blood pressure 80 mm[Hg] Monique Vargas RN [facility], [facility].; [facility] [employer]. [facility], [employer]. Comment on above: Patient Position: Sitting; Cuff Location : Left Arm; Cuff Size: Large 10-31-2012 15:09-0400 Heart rate 74 /min Monique Vargas RN [facility].; [facility] [employer]. [facility], Inc. Comment on above: Pattern: Regular 10-31-2012 15:09-0400 Systolic blood pressure 121 mm[Hg] Monique Vargas RN [facility], [employer].; [facility], Inc. Comment on above: Patient Position: Sitting; Cuff Location : Left Arm; Cuff Size: Large 05-02-2012 13:47-0500 Body height 165.1 cm DANNIELLE KAPLAN [facility], Inc.; [facility], Inc. 05-02-2012 13:47-0500 Body mass index (BMI) [Ratio] 37.94 kg/m2 DANNIELLE KAPLAN [facility], Inc.; [facility], Inc. 05-02-2012 13:47-0500 Body surface area Derived from formula 2.09 m2 DANNIELLE KAPLAN [facility], Inc.; [facility] [employer]. [facility], Inc. 05-02-2012 13:47-0500 Body temperature 98.3 [degF] DANNIELLE Clark [facility] [employer]. [facility], Inc.; [employer] [facility] IllOcapi. Comment on above: Method: Oral 05-02-2012 13:47-0500 Body weight 103.42 kg RICKKelsey Clark [facility] IllO[facility].; [facility], Inc. 05-02-2012 13:47-0500 Diastolic blood pressure 83 mm[Hg] RICKKelsey Clark [facility] Children[facility] Chron[facility] IllSnap Trends Inc.; [facility], Inc. Comment on above: Patient Position: Sitting; Cuff Location : Left Arm; Cuff Size: Standard 05-02-2012 13:47-0500 Heart rate 78 /min RICKKelsey Clark [facility] Children[facility] Chron[facility] IllSnap Trends Inc.; [email or web address] [facility], Inc. Comment on above: Pattern: Regular 05-02-2012 13:47-0500 Systolic blood pressure 138 mm[Hg] RICKKelsey Clark [facility] ChildrenCas[facility] IllSnap Trends Inc.; [email or web address] [facility] [employer] [facility] IllSnap [employer]rends Inc. Comment on above: Patient Position: Sitting; Cuff Location : Left Arm; Cuff Size: Standard 02-19-2012 13:12-0400 Body height 165.1 cm Monique Vargas RN [facility] IllOcapi.; [employer] [facility] [employer]. [facility], Inc. 02-19-2012 13:12-0400 Body mass index (BMI) [Ratio] 37.77 kg/m2 Monique Vargas RN [facility] IllOcapi.; [employer] [facility] [employer], [employer]. [facility], Inc. 02-19-2012 13:12-0400 Body surface area Derived from formula 2.09 m2 Monique Vargas RN [facility] IllOcapi.; Its Time Compliance [facility] [employer] 02-19-2012 13:12-0400 Body weight 102.97 kg Monique [facility]argas RN [facility].; [facility] Chron[facility] IllSnap Trends Inc. 02-19-2012 13:12-0400 Diastolic blood pressure 94 mm[Hg] Monique [facility]argas RN [facility] IllO[facility].; Its Time Compliance [facility] [employer] [facility], MyCheck. Comment on above: Patient Position: Sitting; Cuff Location : Left Arm; Cuff Size: Large 02-19-2012 13:12-0400 Heart rate 73 /min Monique Vargas RN [facility] [employer] [facility]. Comment on above: Pattern: Regular 02-19-2012 13:12-0400 Systolic blood pressure 133 mm[Hg] Monique Vargas RN [facility], MyCheck.; Its [employer] [facility] [employer] [facility], [employer]. Comment on above: Patient Position: Sitting; Cuff Location : Left Arm; Cuff Size: Large 09-07-2011 14:33-0400 Body height 165.1 cm Monique Vargas RN [facility], [employer].; [employer] [facility] [employer] [facility], [employer]. 09-07-2011 14:33-0400 Body mass index (BMI) [Ratio] 37.28 kg/m2 Monique Vargas RN [facility], [employer].; [facility], MyCheck. 09-07-2011 14:33-0400 Body surface area Derived from formula 2.08 m2 Monique Vargas RN [facility], [employer].; [facility], MyCheck. 09-07-2011 14:33-0400 Body weight 101.61 kg Monique Vargas RN [facility], [employer].; [facility], MyCheck. 09-07-2011 14:33-0400 Diastolic blood pressure 76 mm[Hg] Monique Vargas RN [facility] MyCheck.; [facility] [employer] [facility] Ill[facility]i. Comment on above: Patient Position: Sitting; Cuff Location : Left Arm; Cuff Size: Large 09-07-2011 14:33-0400 Heart rate 84 /min Monique Vargas RN [facility], [employer]Check.; [employer] [facility] [employer] [facility] Ill[facility]i. Comment on above: Pattern: Regular 09-07-2011 14:33-0400 Systolic blood pressure 144 mm[Hg] Monique Vargas RN [facility] [employer] [facility] IllO[facility].; Its Time Compliance [facility] [employer] [facility], MyCheck. Comment on above: Patient Position: Sitting; Cuff Location : Left Arm; Cuff Size: Large 07-11-2011 13:51-0400 Body height 165.1 cm SHIV EDMOND [facility] [employer] [facility], MyCheck.; Its [employer] Compliance [facility] [employer], [employer] [facility] IllO[facility]i. 07-11-2011 13:51-0400 Body mass index (BMI) [Ratio] 37.77 kg/m2 SHIV [facility] [employer] [facility], Inc.; Its [employer] [facility] [employer], [employer]. [facility], Inc. 07-11-2011 13:51-0400 Body surface area Derived from formula 2.09 m2 SHIV [facility], Inc.; [facility] [employer], [employer]. [facility], Inc. 07-11-2011 13:51-0400 Body weight 102.97 kg SHIV [facility] [employer], [employer]. [facility], Inc.; [facility] [employer], [employer]. [facility], Inc. 07-11-2011 13:51-0400 Diastolic blood pressure 90 mm[Hg] SHIV [facility] [employer], [employer]. [facility], Inc.; [email or web address] [facility] [employer], [employer]. [facility], Inc. Comment on above: Patient Position: Sitting; Cuff Location : Left Arm; Cuff Size: Standard 07-11-2011 13:51-0400 Heart rate 81 /min SHIV [facility] [employer] [facility] IllOcapi.; [email or web address] [facility] [employer], [employer]. [facility], Inc. Comment on above: Pattern: Regular 07-11-2011 13:51-0400 Systolic blood pressure 153 mm[Hg] SHIV [facility] [employer] [facility] Chron[facility] IllSnap Trends Inc.; [email or web address] [facility] [employer]. [facility], Inc. Comment on above: Patient Position: Sitting; Cuff Location : Left Arm; Cuff Size: Standard 03-06-2011 12:58-0500 Body height 165.1 cm Dorcas Webb RN [facility] [employer], [employer] [facility], Inc.; Its [employer] Compl[employer] [facility] [employer], [employer]. [facility], Inc. 03-06-2011 12:58-0500 Body mass index (BMI) [Ratio] 37.94 kg/m2 Dorcas Webb RN [facility] [employer], [employer]. [facility], Inc.; Its [employer] Compliance [facility] [employer], [employer]. [facility], Inc. 03-06-2011 12:58-0500 Body surface area Derived from formula 2.09 m2 Dorcas Webb RN [facility] [employer], [employer]. [facility], Inc.; Its [employer] [facility] [employer], [employer]. [facility], Inc. 03-06-2011 12:58-0500 Body temperature 97.7 [degF] Dorcas Webb RN [facility] [employer], [employer]. [facility], Inc.; [email or web address] [facility] [employer] [facility], Inc. Comment on above: Method: Oral 03-06-2011 12:58-0500 Body weight 103.42 kg Dorcas Webb RN [facility], Inc.; MMIS [facility], Inc. 03-06-2011 12:58-0500 Diastolic blood pressure 91 mm[Hg] Dorcas Webb RN [facility], Inc.; [email or web address] [facility] [employer] [facility], Inc. Comment on above: Patient Position: Sitting; Cuff Location : Left Arm; Cuff Size: Standard 03-06-2011 12:58-0500 Heart rate 96 /min Dorcas Webb RN [facility], Inc.; [employer], Inc. Comment on above: Pattern: Regular 03-06-2011 12:58-0500 Systolic blood pressure 147 mm[Hg] Dorcas Webb RN [facility], Inc.; [email or web address] [facility] [employer], Inc. Comment on above: Patient Position: Sitting; Cuff Location : Left Arm; Cuff Size: Standard 12-27-2010 14:25-0400 Body weight 102.97 kg Monique Vargas RN [facility] [employer] [facility], MyCheck.; [email or web address] [facility] [employer], [employer]. 12-27-2010 14:25-0400 Diastolic blood pressure 95 mm[Hg] Monique Vargas RN [facility] Chron[facility] IllSnap Trends Inc.; [email or web address] [facility] [employer], [employer]. Comment on above: Patient Position: Sitting; Cuff Location : Left Arm; Cuff Size: Large 12-27-2010 14:25-0400 Heart rate 81 /min Monique Vargas RN [facility] [employer] [facility], Inc.; [employer], Inc. Comment on above: Pattern: Regular 12-27-2010 14:25-0400 Systolic blood pressure 154 mm[Hg] Monique Vargas RN [facility] [employer] [facility], Inc.; [email or web address] [facility] [employer], [employer]. Comment on above: Patient Position: Sitting; Cuff Location : Left Arm; Cuff Size: Large 08-22-2010 12:03-0400 Body temperature 97.8 [degF] Dorcas Webb RN [facility], MyCheck.; [email or web address] [facility] [employer], Inc. Comment on above: Method: Oral 08-22-2010 12:03-0400 Body weight 101.61 kg Dorcas Webb RN [facility] [employer], [employer]. [facility], Inc.; [email or web address] [employer] 08-22-2010 12:03-0400 Diastolic blood pressure 82 mm[Hg] Dorcas Webb RN [facility] [employer] [facility], MyCheck.; [email or web address] [facility] [employer], [employer]. Comment on above: Patient Position: Sitting; Cuff Location : Left Arm; Cuff Size: Standard 08-22-2010 12:03-0400 Heart rate 71 /min Dorcas Webb RN [facility] [employer] [facility], Inc.; [employer], [employer]. Comment on above: Pattern: Regular 08-22-2010 12:03-0400 Systolic blood pressure 130 mm[Hg] Dorcas Webb RN [facility] [employer] [facility], Inc.; [employer], Inc. Comment on above: Patient Position: Sitting; Cuff Location : Left Arm; Cuff Size: Standard 08-15-2010 09:13-0400 Body temperature 98.2 [degF] Monique Vargas RN [facility] [employer], [employer]. Comment on above: Method: Oral 08-15-2010 09:130400 Body weight 102.97 kg Monique Vargas RN [facility] [employer] [facility], MyCheck.; [employer], [employer]. 08-15-2010 09:13-0400 Diastolic blood pressure 91 mm[Hg] Monique Vargas RN [facility] [employer] [facility], MyCheck.; [email or web address] [facility] [employer], Inc. Comment on above: Patient Position: Sitting; Cuff Location : Left Arm; Cuff Size: Large 08-15-2010 09:13-0400 Heart rate 82 /min Monique Vargas RN [facility] [employer] [facility], MyCheck.; [employer], [employer]. Comment on above: Pattern: Regular 08-15-2010 09:13-0400 Systolic blood pressure 156 mm[Hg] Monique Vargas RN [facility] [employer].; [email or web address] [facility] [employer], [employer]. Comment on above: Patient Position: Sitting; Cuff Location : Left Arm; Cuff Size: Large 06-28-2010 13:07-0500 Body height 165.1 cm Dorcas Webb RN [facility] [employer] [facility], Inc.; [employer], [employer]. 06-28-2010 13:07-0500 Body mass index (BMI) [Ratio] 36.94 kg/m2 Dorcas Webb RN [facility], Inc.; [facility], Inc. 06-28-2010 13:07-0500 Body surface area Derived from formula 2.07 m2 Dorcas Webb RN [facility], Inc.; [facility], Inc. 06-28-2010 13:07-0500 Body temperature 98 [degF] Dorcas Webb RN [facility], Inc.; [facility], Inc. Comment on above: Method: Oral 06-28-2010 13:07-0500 Body weight 100.7 kg Dorcas Webb RN [facility], Inc.; [facility], Inc. 06-28-2010 13:07-0500 Diastolic blood pressure 84 mm[Hg] Dorcas Webb RN [facility], Inc.; [facility] [employer], [employer]. [facility], Inc. Comment on above: Patient Position: Sitting; Cuff Location : Left Arm; Cuff Size: Standard 06-28-2010 13:07-0500 Heart rate 80 /min Dorcas Webb RN [facility], Inc.; [facility] [employer], [employer]. [facility], Inc. Comment on above: Pattern: Regular 06-28-2010 13:07-0500 Systolic blood pressure 139 mm[Hg] Dorcas Webb RN [facility], Inc.; [facility], Inc. Comment on above: Patient Position: Sitting; Cuff Location : Left Arm; Cuff Size: Standard Encounters Encounter Date Encounter Type Care Provider Facility Start: 12-24-2024 ambulatory Racheal Stephens Facility:[facility] Start: 11-24-2024 End: 11-24-2024 ambulatory LIVE Lemus RAFAEL [facility] Start: 06-20-2024 End: 06-20-2024 ambulatory RACHEAL STEPHENS [facility] Start: 06-18-2024 End: 06-18-2024 ambulatory LIVE Lemus [facility] Start: 05-13-2024 End: 05-13-2024 ambulatory LIVE Lemus [facility] Start: 05-10-2024 End: 05-10-2024 ambulatory RACHEAL STEPHENS [facility] Start: 03-28-2024 End: 03-28-2024 Medication Refill/Order [facility]ENS [facility] Start: 03-28-2024 End: 03-28-2024 RACHEAL STEPHENS MD [facility] Start: 01-03-2024 End: 01-03-2024 Office outpatient visit 10 minutes RACHEAL STEPHENS MD Work [facility] Start: 12-26-2023 End: 12-26-2023 Medication Refill/Order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 blood count (hemogram) panel - Blood by Automated count Toya Valenzuela Work Phone: Start: 01-24-2020 Ethanol [Mass/volume ] in Serum or Plasma Bhumi Kaufman Work Phone: Start: 01-24-2020 VILLAGOMEZ TOP Bhumi Kaufman Work Phone: Start: 01-24-2020 INR in Platelet poor plasma by Coagulation assay Toya Valenzuela Work Phone: Start: 01-24-2020 LIGHT GREEN TOP Bhumi Kaufman Work Phone: Start: 01-24-2020 RAINBOW DRAW Bhumi Kaufman Work Phone: Start: 01-24-2020 Troponin measurement Anabela Valenzuela Work Phone: Start: 01-21-2020 Dup-scan artl ghazal abdl/pel/scrot&/rpr orgn com Nirav Kaplan Work Phone: Start: 01-21-2020 US CAROTID Nirav love Work Phone: Start: 12-18-2019 End: 12-18-2019 Dischrg meds reconciled w/current med list RACHEAL STEPHENS MD Work Phone: Start: 12-10-2019 End: 12-10-2019 Ecg routine ecg w/least 12 lds w/i&r MARY JANE Lemus [facility] Work Phone: Start: 12-10-2019 End: 12-10-2019 Dischrg meds reconciled w/current med list MARY JANE Lemus [employer] Work Phone: Start: 09-29-2019 End: 09-29-2019 Ceftriaxone sodium injection RACHEAL DEMPSEY MD Work Phone: Start: 09-29-2019 End: 09-29-2019 Therapeutic prophylactic/dx injection subq/im RACHEAL STEPHENS MD Work Phone: Start: 11-07-2018 End: 11-07-2018 Dischrg meds reconciled w/current med list RACHEAL STEPHENS MD Work Phone: Start: 05-08-2018 End: 05-08-2018 Dischrg meds reconciled w/current med list ENZO NICE MD Work Phone: Start: 01-01-2018 End: 01-01-2018 Echocardiography ENZO NICE MD Work Phone: Comment on above: Outside Source Comme nt: EF 55-60% EF 55%, Nl BioAV; Dr Gu Start: 11-07-2017 End: 11-07-2017 Fall Risk Assessment Dorcas Webb RN Comment on above: 1 Start: 05-02-2017 Current tobacco non- user cad cap copd pv dm GILBERT MARTINEZ MD Start: 09-06-2016 End: 09-06-2016 Falls risk assessment documented ENZO NICE MD Work Phone: Start: 09-22-2015 Echocardiography DORINA MARTINEZ MD Comment on above: Outside Source Comme nt: 1. Mild concentric left ventricular hypertrophy with normal systolic function, ejection fraction 60%. 2. Right ventricle upper limits of normal size with normal systolic function. 3. Mild biatrial enlargement. 4. Normal appearing bioprosthetic aortic valve and prosthetic annulus with trivial transvalvular aortic insufficiency. 5. Mild mitral annular calcification with mild diffuse leaflet thickening, focal calcification, and restriction without significant stenosis, with mild mitral insufficiency. 6. Mild tricuspid insufficiency. 7. Trivial pulmonic insufficiency. 8. Right ventricular systolic pressure estimated to be 34 mm [Hg]. 9. Transmitral Doppler flow may be suggestive of elevated left atrial pressure. Start: 07-31-2013 Echocardiography DORINA MARTINEZ MD Comment on above: Outside Source Comme nt: (Nicolozakes) Mild concentric left ventricular hypertrophy with normal systolic function, EF 55%. Postoperative septal motion noted Start: 06-20-2013 Aortic valve prosthe sis, device (physical object) GILBERT MARTINEZ MD Comment on above: insertion of TPW Start: 06-18-2013 Tooth extraction, multiple GILBERT MARTINEZ MD Comment on above: extraction of all no n restorable teeth, 17,20, 28 Start: 06-17-2013 Catheterization of l eft heart GILBERT MARTINEZ MD Start: 04-23-2009 Cholecystectomy CORTES MARTINEZ MD Aortic Biovalve repl acement 06/20/2013 ENZO NICE MD Work Phone: Comment on above: Samuel Hassan Aortic Biovalve repl acement 06/20/2013 ARIANNA LIPSCOMB RN Comment on above: Samuel Hassan Catheterization of l eft heart GILBERT MARTINEZ MD Comment on above: Outside Source Comme nt: 06/17/13 (SA) Selective coronary arteriogram. Symptomatic severe aortic stenosis. Minimal CAD Cholecystectomy GILBERT VASQUEZ MD Comment on above: Outside Source Comme nt: 09/28/10 Heart valve replacement RACHEL MARTINEZ MD Comment on above: Outside Source Comme nt: 06/20/13 Dr. Porter #23 Howard Mitroflow pericardial valve. Heavily calcified trileaflet aortic valve and well seated #23 Howard Mitroflow pericardial valve w/o perivalvular leaks, severe LVHand preserved LV function postop. Luna De La Torre, 09/28/10, Kranthi NICE MD Work Phone: Luna De La Torre, 09/28/10, Kranthi LIPSCOMB RN Prostate specific an tigen measurement [facility]AP[facility]ITA [facility] Work Phone: Comment on above: 26.22 (06/20/23); ref erred to Dr. Tang Screening colonoscopy Ethan Webb RN Comment on above: Date: 05/01/2016. hype rplastic polyp Screening colonoscopy ARIANNA LIPSCOMB RN Comment on above: Date: 05/01/2016. hype rplastic polyp TDAP - Adacel/Boostrix Dee Wbeb RN Comment on above: Discussed. 07/24/2022 ARIANNA LIPSCOMB RN Plan of Treatment Date Care Activity Detail Author Start: 01-03-2024 Medical; BLOOD PRESS URE CHECK - meds review/refills Medical; BLOOD PRESSURE CHECK - meds review/refills [employer]. Start: 03-Jan-2024 13:30-04:00 MD RACHEAL STEPHENS Appointment Request [employer], [employer]. Start: 06-20-2023 Assay of prostate specific antigen total PSA (PROSTATE SPECIFIC ANTIGEN) ([id number]) Start: 20-Jun-2023 14:14-05:00 Request [employer]. Start: 06-20-2023 Patient Education [employer], [employer]. Start: 12-22-2020 Influenza vaccination Sequenti al Influenza Vaccine (#1) [facility] Start: 08-16-2020 End: 08-16-2020 Telemedicine 08/16/2020 Telemedicine Neurosurgery Salomon Roy DO [address] [place] [address] [address] [place] [address] [phone] [facility] Neuroscience Start: 05-17-2020 End: 05-17-2020 Telemedicine 05/17/2020 Telemedicine Neurosurgery Salomon Roy, DO [address] [place] [address] [phone] [facility], Neuroscience Start: 05-13-2020 End: 05-13-2020 Appointment 05/13/2020 Appointment Radiology Salomon Roy, DO [address] [place] [address] [phone] [facility] CT Scan Start: 04-14-2020 End: 04-14-2020 Office Visit 04/14/2020 Office Visit Orthopedic Surgery Kyle Angeles MD [address] [place] [address] [phone] [facility] Start: 04-01-2020 End: 04-01-2020 Office Visit 04/01/2020 Office Visit Neurosurgery Salomon Roy, DO [address] [place] [address] [phone] [facility] Neuro[facility] Start: 03-30-2020 End: 03-30-2020 Appointment 03/30/2020 Appointment Radiology Kirill Salomon Bruce, DO [address] [place] [address] [phone] [facility] CT Scan Start: 03-26-2020 End: 03-26-2020 Clinical Support 03/26/2020 Clinical Support Neurosurgery Trice Jones, RENETTA [facility] Physician [facility], Neuroscience Start: 03-22-2020 End: 03-22-2020 Treatment [facility] Start: 03-20-2020 Plan of Care Documentation 03/20/2020 Plan of Care Documentation Physical Therapy [facility] Start: 03-20-2020 End: 03-20-2020 Treatment [facility] Start: 03-16-2020 End: 03-16-2020 Appointment [facility] CT Start: 02-25-2020 End: 02-25-2020 Office Visit 02/25/2020 Office Visit Orthopedic Surgery Kyle Angeles MD [address] [place] [address] [phone] [facility] Start: 02-17-2020 End: 02-17-2020 Appointment [facility] CT Start: 02-11-2020 End: 02-11-2020 Office Visit 02/11/2020 Office Visit Orthopedic Surgery Kyle Angeles MD [address] [place] [address] [phone] [facility] Start: 02-03-2020 End: 02-03-2020 Office Visit 02/03/2020 Office Visit Trauma Surgery Sivan Sarabia PA-C [address] [place] [address] [phone] [facility] Start: 12-23-2019 Influenza vaccination Sequenti al Influenza Vaccine (#1) [facility] Start: 12-23-2019 Influenza vaccinatio n given Sequential Influenza Vaccine (#1) [facility] Start: 05-15-2019 Patient Education [employer] [facility] MMIS [facility] Start: 04-17-2019 Incision & drainage abscess simple/single [facility] [employer] [facility] [employer] [facility] Start: 05-08-2018 Patient Education [facility] [employer] [facility] Its Time Compliance [facility] [employer] [facility] Start: 11-07-2017 End: 11-07-2017 Falls risk assessment documented [facility] [employer] [facility] Its Time Compliance [facility] [employer] [facility] Start: 11-07-2017 Patient Education [facility] [employer] [facility] [employer] [facility] Start: 02-07-2016 Patient Education [facility] [employer] [facility] [employer] [facility] Start: 08-09-2015 Patient Education [facility] [employer] [facility] [email or web address] [facility] Start: 06-21-2015 Excision mal lesion trunk/arm/leg 1.1-2.0 cm [facility]; Its Time Compliance [facility] Start: 06-10-2015 Bx skin subcutaneous&/mucous membrane 1 lesion [facility] Its Time Compliance [facility] Start: 03-22-2015 Patient Education [facility] Its Time Compliance [facility] Start: 09-28-2014 Patient Education [facility], MyCheck. Start: 04-30-2014 Patient Education [facility].; Its Time Compliance [facility] Start: 05-30-2013 Ecg routine ecg w/le ast 12 lds w/i&r [facility] [employer] [facility]; Its Time Compl[facility] Start: 05-30-2013 Echo tthrc r-t 2d w/wom-mode compl spec&colr d [facility] [employer] [facility]; [email or web address] [facility] [employer] [facility], [employer]. Start: 05-30-2013 External ecg scannin g analysis report [facility]; Its Time Compliance [facility], [employer]. Start: 07-11-2011 Blood occult peroxid ase actv qual feces 1 deter [facility] [employer] [facility]; Its Time Compliance [facility] [employer], [employer] [facility], [employer]. Work Phone: Start: 08-22-2010 Us abdominal real ti me w/image documentation [facility] [employer] [facility] [email or web address] [facility] [employer] [facility] Start: 08-15-2010 Ct abdomen w/o & w/contrast material [facility] [employer] [facility] Its Time Compliance [facility] [employer], [employer] [facility], [employer]. Start: 08-15-2010 Ct pelvis w/o & w/contrast material [facility] [employer] [facility] Its Time Compliance [facility] [employer], [employer] [facility] Start: 2009 Fall risk assessment Falls Risk Asse ssment [facility] Start: 2009 Pneumococcal vaccination Pneum ococcal Vaccine Age 65+ (1 of 2 - PCV13) [facility] Start: 2009 Pneumococcal Vaccine : Age 65+ (1 of 1 - PPSV23) Pneumococcal Vaccine: Age 65+ (1 of 1 - PPSV23) [facility] Start: 1994 Administration of he rpes zoster vaccine Zoster Vaccines (1 of 2) [facility] Start: 1994 Screening for malign ant neoplasm of colon [facility] Start: 1962 Hepatitis C antibody , confirmatory test Hepatitis C Screening [facility] Start: 1962 Hepatitis C screening Hepatitis C Sc reening [facility] Start: 1960 COVID-19 Vaccine (1 of 2) COVID-19 Vaccine (1 of 2) [facility] Start: 1960 COVID-19 Vaccine (1) COVID-19 Vaccin e (1) [facility] Start: 1956 Adolescent depressio n screening assessment Depression Screening (PHQ9) [facility] Start: 1956 COVID-19 Vaccine (1) COVID-19 Vaccin e (1) [facility] Start: 1956 Depression screening using PHQ-9 (Patient Health Questionnaire 9) score Depression Screening (PHQ9) [facility] Start: 1947 History and physical examination, annual for health maintenance Wellness Visit [facility] Start: 1944 Fall risk assessment Falls Risk Asse ssment [facility] Start: 1944 Prostate specific antigen measurement PSA Level [facility] Start: 1944 Tetanus vaccination Tetanus: Every 1 0yrs [facility] End: 02-17-2020 CT of head without contrast CT Head Or Brain Without Contrast Imaging Routine IVH (intraventricular hemorrhage) (HCC) Once for 1 Occurrences starting 02/17/2020 until 02/17/2020 [facility] Comment on above: Once for 1 Occurrenc es starting 02/17/2020 until 02/17/2020 CT of head without contrast CT Head Or Brain Without Contrast Imaging Routine IVH (intraventricular hemorrhage) (HCC) 02/17/2020 10:02 AM EDT [facility] End: 04-02-2021 CT of head without contrast CT Head Or Brain Without Contrast Imaging Routine Subdural hemorrhage (HCC) 1 Occurrences starting 04/01/2020 until 04/02/2021 [facility] Comment on above: 1 Occurrences starti ng 04/01/2020 until 04/02/2021 End: 02-01-2021 Standard chest X-ray XR Chest AP/PA and LAT Imaging Routine Closed fracture of multiple ribs of right side, initial encounter 1 Occurrences starting 02/03/2020 until 02/01/2021 [facility] Comment on above: 1 Occurrences starti ng 02/03/2020 until 02/01/2021 Standard chest X-ray XR Chest AP /PA and LAT Imaging Routine Closed fracture of multiple ribs of right side, initial encounter 02/03/2020 11:19 AM EDT [facility] XR Clavicle Right XR Clavicle Ri ght Imaging Routine Closed nondisplaced fracture of right clavicle with routine healing, unspecified part of clavicle, subsequent encounter 04/14/2020 9:57 AM EST [facility] Immunizations Immunization Date Immunization Notes Care Provider Oli engwily 03-07-2017 pneumococcal Conjugate, unspecified formulation RACHEAL STEPHENS MD Work Phone: [facility]; Its Time Compliance [facility] Comment on above: Refused. influenza virus vaccine, unspecified formulation RACHEAL STEPHENS MD Work Phone: [facility]; [email or web address] [facility] Comment on above: Refused. 04-17-19 NEGATED: Highlighted row has not occurred!03-17-2020 influenza, high dose seasonal, preservative-free [place] [facility] Payers Date Payer Category Payer Unknown [id number] 2024 Unknown 0 [id number] 2020 Unknown [id number] 1.2.8 [id number] 2020 Unknown 2020 Unknown [id number] 1959 Self-pay 1944 Unknown [id number] 2.16.8 40.1.748786.3.579.2.419 1944 Unknown [id number] 2.16. 840.1.022026.3.579.2.903 1944 Unknown [id number] 2.16. 840.1.490738.3.579.2.903 1944 Unknown [id number] 2.16. 840.1.324925.3.579.2.903 1944 Unknown [id number] 2.16. 840.1.812788.3.579.2.903 1944 Unknown [id number] 2.16. 840.1.077112.3.579.2.903 1944 Unknown [id number] 2.16. 840.1.940953.3.579.2. 1944 Unknown [id number] 2.16. 840.1.308034.3.579.2.903 1944 Unknown [id number] 2.16. 840.1.747103.3.579.2.90 1944 Unknown [id number] 2.16. 840.1.693707.3.579.2.903 1944 Unknown [id number] 2.16. 840.1.064510.3.579.2.3 1944 Unknown [id number] 2.16. 840.1.992056.3.579.2.903 1944 Unknown [id number] 2.16. 840.1.692790.3.579.2.903 1944 Unknown [id number] 2.16. 840.1.021728.3.579.2.903 1944 Unknown [id number] 2.16. 840.1.008663.3.579.2.903 1944 Unknown [id number] 2.16. 840.1.607684.3.579.2.903 1944 Unknown [id number] 2.16. 840.1.145553.3.579.2.903 1944 Unknown [id number] 2.16. 840.1.930546.3.579.2.903 1944 Unknown [id number] 2.16. 840.1.199660.3.579.2.903 1944 Unknown [id number] 2.16. 840.1.897848.3.579.2.903 1944 Unknown [id number] 2.16. 840.1.067020.3.579.2.903 1944 Unknown [id number] 2.16. 840.1.760970.3.579.2.903 1944 Unknown [id number] 2.16. 840.1.510489.3.579.2.903 1944 Unknown [id number] 2.16. 840.1.897134.3.579.2.903 1944 Unknown [id number] 2.16. 840.1.303136.3.579.2.900 1944 Unknown [id number] 2.16. 840.1.652751.3.579.2.900 1944 Unknown [id number] 2.16.8 40.1.567688.3.579.2.900 1944 Unknown [id number] 2.16. 840.1.497208.3.579.2.900 1944 Unknown [id number] 2.16. 840.1.629258.3.579.2.903 1944 Unknown [id number] 2.16.8 40.1.798060.3.579.2.651 Unknown 132-1 Unknown [id number] 2.16.8 40.1.178713.3.579.2.462 Social History Date Type Detail [facility] Start: 1945 [facility] Start: 12-01-2019 End: 01-24-2020 Tobacco smoking status NHIS Never smoker [facility] Start: 01-24-2020 End: 04-14-2020 Tobacco use and exposure Never used [facility] Start: 01-24-2020 End: 02-25-2020 Alcohol intake Lifetime non-drinker (finding) [facility] Start: 01-24-2020 End: 04-14-2020 History SDOH Alcohol Frequency 1 [facility] Exposure to SARS-CoV -2 (event) Not sure [facility] Start: 03-19-2020 End: 01-13-2021 Alcohol intake Not Asked [facility] Start: 1945 [facility]igned At [facility] Alcohol Use: Alcohol Use: ; N o Alcohol Use. [employer] Current Work/Study Status Current Work/Study Status [employer] Tobacco use: Tobacco use: ; N ever smoker. [employer] Medical Equipment Procedure Code Equipment Code Equipment Origin al Text Equipment Identifier Dates Closure 6/7fr Vascular Mynx W/Extra Operation Supervisor Min Order 10 - [id number] Start: 03-15-2020 Particles 250-35 5 Microns Pva Contour - [id number] Start: 03-15-2020 Graft 4 X 5in Du ral Duragen Plus - [id number], [id number] FDA Start: 03-13-2020 Hemostat 2 X 14i n Surgicel 1952 - [id number] ()[id number], [id number] FDA Start: 03-13-2020 Hemostat 8 X 12. 5cm X 10mm Surgifoam Gelatin Sponge - [id number] ()[id number] , [id number] FDA Start: 03-13-2020 Sealant 10ml Hemostatic Matrix Fast Prep Floseal - [id number], [id number] FDA Start: 03-13-2020 Cover 15mm Ti Bu rr Hl Matrix[employer]uro - [id number] Start: 03-13-2020 Plate Dbl-Y 18mm 6 Hole [employer] - [id number] Start: 03-13-2020 Plate 17mm [employer] [place] Hole Cover - [id number] Start: 03-13-2020 Screw 4mm Ti Self-Drill [employer] - [id number] Start: 03-13-2020 [id number] Start: 07-17-2022 End: 07-12-2023 Comment on above: 30 syringes History of Present illness Narrative 01-13-2021 Salomon Roy, DO - 01/13/2021 5:18 PM EDTBharesh Jones RN - 01/13/2021 2:05 PM EDT Note Date & Type Note Facility 01-13-2021 History of Presen t illness Narrative Michael Edmond follows up in the office today for evaluation. 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 He also had IR embolization of the middle meningeal artery bilaterally to help prevent subdural recurrence. He is doing well and denies any significant headaches or neurological complaints. He has aortic stenosis and his wellness trainer wants to know if he can be anticoagulated. He had potentially a small residual left-sided subdural on his last CT scan on the left side versus simple late subdural type thickening. Follows up with repeat CT today for further evaluation of risk for anticoagulation. On exam the patient is alert and oriented and his wounds are well-healed. He has no focal deficits. I compared his CT scan performed today and note an official report from the radiologist has not yet been done. I compared today's CT scan to his most recent previous CT scan done on 08/06/2020. The patient's repeat CT scan today demonstrates some mild dural thickening on the left side. His previous CT scan commented on dural thickening and potentially very small extra-axial collection at that location. I note some calcification along the inner margin of this dural thickening/collection. This area now is 1 to 2 mm versus 3 mm and some finding at this location will most certainly always be present. I cannot confirm 100% there is not a very small submillimeter a millimeter collection. I see no significant subdural collection or intracranial hemorrhage involving the brain. --- I believe the patient overall should be a low risk for anticoagulation but he has had a history of bilateral subdurals and potentially could be at some increased risk versus someone who is not had subdurals in the past. Noted is the patient has had bilateral middle meningeal artery embolization which also could potentially provide some protection from recurrent subdural. The decision whether or not to reanticoagulate the patient for aortic stenosis is a medical decision but concerning the above CT findings I believe the patient would be at a relatively low risk overall for anticoagulation if necessary. Ofourse anticoagulation should be kept in therapeutic range and should the patient have significant head trauma or develop significant headaches or new neurological symptoms he should be urgently evaluated and undergo repeat CT imaging. The patient may follow-up as needed. Please call me if there is any further questions or concerns. 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 CT Head prior to appt in [facility]. Patient reports an occasional headache to top of head that does not limit him or cause any side effects. Patient with aortic valve stenosis and cardiology needs to know if patient is cleared to take anticoagulants. documented in this encounter [facility] Evaluation + Plan note Laboratory Note Date & Type Note Facility Evaluation + Plan note Future Appointments Appointment Date:04/04/2021 03:45:00 PM Scheduled Provider: Location:[facility] Appointment Type:CV OV Future Scheduled [id number] Hemoglobin 12/22/20Lipid Profile 12/22/20 [facility] Evaluation note Note Date & Type Note Facility Evaluation note Diagnosis Subdural hemorrhage (HCC) Subdural hemorrhage documented in this encounter [facility] Evaluation note Note Date & Type Note Facility Evaluation note Diagnosis Subdural hemorrhage (HCC)- Primary Subdural hemorrhage documented in this encounter [facility] Evaluation note Note Date & Type Note Facility Evaluation note No assessment information availa saima [facility] Work Phone: Hospital course Narrative Note Date & Type Note Facility Hospital course Narrative No data available for this section [facility] Hospital Discharge instructions Note Date & Type Note Facility Hospital Discharge instructions No data available for this section [facility] Summary Purpose Family History No Family History Records FoundNo Family History Records FoundNo Family History Records FoundNo Family History Records FoundNo Family History Records FoundNo Family History Records FoundNo Family History Records FoundNo Family History Records FoundNo Family History Records Found Advance Directives No Advanced Directives Records FoundDocuments on File Type Date Recorded Patient Panel Instrument Repairer Expl anation Advance Directives and Livin g Will 01/24/2020 3:13 PM Latest Code Status on File Code Status Date Activated Date Inactivated Comments Full Code - Unverified 01/24/2020 3:54 PM 01/27/2020 6:5 8 PM Documents on File Type Date Recorded Patient Panel Instrument Repairer Expl anation Advance Directives and Livin g Will 02/03/2020 11:10 AM Latest Code Status on File Code Status Date Activated Date Inactivated Comments Full Code - Unverified 01/24/2020 3:54 PM 01/27/2020 6:5 8 PM Documents on File Type Date Recorded Patient Panel Instrument Repairer Expl anation Advance Directives and Livin g Will 02/17/2020 11:10 AM Documents on File Type Date Recorded Patient Panel Instrument Repairer Expl anation Advance Directives and Livin g Will 02/25/2020 12:58 PM Documents on File Type Date Recorded Patient Panel Instrument Repairer Expl anation Advance Directives and Livin g Will 03/19/2020 12:58 PM Latest Code Status on File Code Status Date Activated Date Inactivated Comments Full Code - Unverified 03/19/2020 6:02 PM Full Code 03/14/2020 5:09 PM 03/18/2020 7:31 PM Full Code - Unverified 03/13/2020 2:43 AM 03/14/2020 5 :09 PM Full Code - Unverified 01/24/2020 3:54 PM 01/27/2020 6:5 8 PM Documents on File Type Date Recorded Patient Panel Instrument Repairer Expl anation Advance Directives and Livin g Will 03/30/2020 12:58 PM Latest Code Status on File Code Status Date Activated Date Inactivated Comments Full Code - Unverified 03/19/2020 6:02 PM 03/27/2020 1: 44 PM Full Code 03/14/2020 5:09 PM 03/18/2020 7:31 PM Full Code - Unverified 03/13/2020 2:43 AM 03/14/2020 5 :09 PM Full Code - Unverified 01/24/2020 3:54 PM 01/27/2020 6:5 8 PM Documents on File Type Date Recorded Patient Panel Instrument Repairer Expl anation Advance Directives and Livin g Will 04/14/2020 9:34 AM Latest Code Status on File Code Status Date Activated Date Inactivated Comments Full Code - Unverified 03/19/2020 6:02 PM 03/27/2020 1: 44 PM Documents on File Type Date Recorded Patient Panel Instrument Repairer Expl anation Advance Directives and Livin g Will 05/13/2020 9:34 AM Documents on File Type Date Recorded Patient Panel Instrument Repairer Expl anation Advance Directives and Livin g Will 05/13/2020 9:34 AM Documents on File Type Date Recorded Patient Panel Instrument Repairer Expl anation Advance Directives and Livin g Will 08/06/2020 12:09 PM Documents on File Type Date Recorded Patient Panel Instrument Repairer Expl anation Advance Directives and Livin g Will 01/13/2021 12:09 PM Reason for Referral Status Reason Specialty Diagnoses / Procedures Referred By Contact Referred To Contact Authorized Patient Preference Home Health Services Diagnoses Open fracture of right side of base of skull, initial encounter (HCC) Debra Escobar MD [address] [place] [address] Status Reason Specialty Diagnoses / Procedures Referred By Contact Referred To Contact Pending Review Radiology Diagnoses IVH (intraventricular hemorrhage) (HCC) Procedures CT Head Or Brain Without Contrast Alli Grace Jr., DO [address] [facility] [address] [place] [address] Status Reason Specialty Diagnoses / Procedures Referred By Contact Referred To Contact Pending Review Radiology Diagnoses Subdural hemorrhage (HCC) Procedures CT Head Or Brain Without Contrast Salomon Roy, DO [address] [facility] [address] [place] [address] Status Reason Specialty Diagnoses / Procedures Referre d By Contact Referred To Contact Closed Radiology Diagnoses Subdural hemorrhage (HCC) Procedures CT Head Or Brain Without Contrast Salomon Roy DO Michelle [address] [facility] [address] [place] [address] Discharge Instructions * Discharge Instr - AVS First Page* Shae Kaufman CNP - 01/27/2020 10:53 AM EDT HOME CARE INSTRUCTIONS You have had an injury to your brain. You may have symptoms for weeks after your injury. For the first 48 hours after discharge from the hospital: -Do not take any medicine that causes drowsiness or sleepiness unless it is prescribed by your trauma doctor -Do not drink alcohol, drive or operate heavy machinery such as a car, ATV, motorcycle, tools or a lawnmower Have a responsible adult stay with you for the first 2 or 3 days after you go home. If they are unable to wake you up, they should call 911 right away. Call your neurosurgeon if you have: -Uncontrolled headache -Nausea, vomiting or a stiff neck -Memory loss or a hard time concentrating -Pupils which are unequal in size. Your pupils are the dark center in the middle of your eye -Changes in your personality such as more aggressive or risky behavior -Problems with sleeping - either sleeping too much or not enough -New symptoms, such as excessive sleepiness or weakness, or seizure activity Follow up -You will need to have a CT scan prior to your follow up office visit, call office to arrange prioryour appointment. * Additional Instructions* Iglesia Flor II, MD - 01/26/2020 Learning About a Closed Head Injury What is a closed head injury? A closed head injury happens when your head gets hit hard. The strong force of the blow causes yourbrain to shake in your skull. This movement can cause the brain to bruise, swell, or tear. Sometimes nerves or blood vessels also get damaged. This can cause bleeding in or around the brain. A concussion is a type of closed head injury. What are the symptoms? If you have a mild concussion, you may have a mild headache or feel not quite right. These symptoms are common. They usually go away over a few days to 4 weeks. But sometimes after a concussion, you feel like you can't function as well as before the injury. And you have new symptoms. This is called postconcussive syndrome. You may: Find it harder to solve problems, think, concentrate, or remember. Have headaches. Have changes in your sleep patterns, such as not being able to sleep or sleeping all the time. Have changes in your personality. Not be interested in your usual activities. Feel angry or anxious without a clear reason. Lose your sense of taste or smell. Be dizzy, lightheaded, or unsteady. It may be hard to stand or walk. How is a closed head injury treated? Any person who may have a concussion needs to see a doctor. Some people have to stay in the hospital to be watched. Others can go home safely. If you go home, follow your doctor's instructions. Ben ellis will tell you if you need someone to watch you closely for the next 24 hours or longer. Rest is the best treatment. Get plenty of sleep at night. And try to rest during the day. Avoid activities that are physically or mentally demanding. These include housework, exercise, and schoolwork. And don't play video games, send text messages, or use the computer. You may need to change your school or work schedule to be able to avoid these activities. Ask your doctor when it's okay to drive, ride a bike, or operate machinery. Take an kysm-mwq-bfqelnr pain medicine, such as acetaminophen (Tylenol), ibuprofen (Advil, Motrin),or naproxen (Aleve). Be safe with medicines. Read and follow all instructions on the label. Check with your doctor before you use any other medicines for pain. Do not drink alcohol or use illegal drugs. They can slow recovery. They can also increase your riskof getting a second head injury. Follow-up care is a mora part of your treatment and safety. Be sure to make and go to all appointments, and call your doctor if you are having problems. It's also a good idea to know your test resultsand keep a list of the medicines you take. Where can you learn more? Log into your personal health record on [email or web address] and enter E235 in the Education box to learn more about Learning About a Closed Head Injury. Current as of: March 12, 2019 Content Version: 12.6 [employer]. Care instructions adapted under license by your healthcare professional. If you have questions about a medical condition or this instruction, always ask your healthcare professional. [employer] disclaims any warranty or liability for your use of this information. BRAIN INJURY HOME CARE INSTRUCTIONS You have had an injury to your brain. You may have symptoms for weeks after your injury. For the first 48 hours after discharge from the hospital: -Do not take any medicine that causes drowsiness or sleepiness unless it is prescribed by your trauma doctor -Do not drink alcohol, drive or operate heavy machinery such as a car, ATV, motorcycle, tools or a lawnmower Have a responsible adult stay with you for the first 2 or 3 days after you go home. If they are unable to wake you up, they should call 911 right away. Call your neurosurgeon if you have: -A fever over 101 degrees -Nausea, vomiting or a stiff neck -Memory loss or a hard time concentrating -Pupils which are unequal in size. Your pupils are the dark center in the middle of your eye -Changes in your personality such as more aggressive or risky behavior -Problems with sleeping - either sleeping too much or not enough Skull Fracture: Care Instructions Your Care Instructions A skull fracture is a break in one of the bones of your head. A fracture may be a hairline crack, or it can be what is called a depressed fracture. A skull fracture can injure the brain. If you have a cut in the skin over a skull fracture, bacteria can enter the skull and may cause an infection. Sometimes, signs of a brain injury do not show up until days or weeks after a skull fracture. For that reason, you need to watch for severe headaches, or blood or fluid leaking from your nose or ears. Your family can help watch for confusion or other behavior changes you may have. You heal best when you take good care of yourself. Eat a variety of healthy foods, and don't smoke. Follow-up care is a mora part of your treatment and safety. Be sure to make and go to all appointments, and call your doctor if you are having problems. It's also a good idea to know your test resultsand keep a list of the medicines you take. How can you care for yourself at home? If your doctor prescribed antibiotics, take them as directed. Do not stop taking them just because you feel better. You need to take the full course of antibiotics. Be safe with medicines. Take pain medicines exactly as directed. ? If the doctor gave you a prescription medicine for pain, take it as prescribed. ? If you are not taking a prescription pain medicine, ask your doctor if you can take an kxup-lab-izbjrqd medicine. ? Do not take two or more pain medicines at the same time unless the doctor told you to. Many pain medicines have acetaminophen, which is Tylenol. Too much acetaminophen (Tylenol) can be harmful. Follow your doctor's instructions. He or she will tell you if you need someone to watch you closelyfor the next 24 hours or longer. Put ice or a cold pack on the sore area for 10 to 20 minutes at a time. Try to do this every 1 to 2hours for the next 3 days (when you are awake) or until the swelling goes down. Put a thin cloth between the ice and your skin. You may sleep. If your doctor tells you to, have another adult check you at the suggested times to make sure you are able to wake up, recognize the other adult, and act normally. Take it easy for the next few days or longer if you are not feeling well. Do not drink any alcohol for at least the next 24 hours. What is postconcussion syndrome? If you have had a mild concussion, you may have a mild headache or just feel not quite right. These symptoms are normal and usually go away on their own. It can take a few days to a few weeks for the symptoms to fade. Occasionally, after a concussion you may feel as if you are not functioning as well as you did before the injury; you may develop new symptoms. This is called postconcussion syndrome. You may: Have changes in your ability to solve problems, think, concentrate, or remember. Have headaches. Have dizziness, lightheadedness, or unsteadiness that prevents standing or walking. Have changes in your sleep patterns, such as not being able to sleep or sleeping all the time. Have changes in your personality. Lack interest in your daily activities. Become easily angered or anxious for no clear reason. Have changes in your sex drive. It may take several weeks to many months for these symptoms to go away, but you should mention any new symptoms to your doctor. When should you call for help? Call 911 anytime you think you may need emergency care. For example, call if: You have a seizure. You passed out (lost consciousness). You are confused or you do not know where you are. You are very sleepy or hard to wake up. Call your doctor now or seek immediate medical care if: You have a new watery (not like mucus from a cold) or bloody fluid coming from your nose or ears. You have a fever with a stiff neck or a severe headache. You have bruises behind one ear or around both eyes within 24 hours after a head injury. You have new weakness or numbness in any part of your body. You have trouble walking. You vomit. Watch closely for changes in your health, and be sure to contact your doctor if: Your headaches get worse. Where can you learn more? Log into your personal health record on [email or web address] and enter N949 in the Education box to learn more about Skull Fracture: Care Instructions. Current as of: March 12, 2019 Content Version: 12.6 [employer]. Care instructions adapted under license by your healthcare professional. If you have questions about a medical condition or this instruction, always ask your healthcare professional. [employer] disclaims any warranty or liability for your use of this information. Home Care Instructions: Traumatic Brain Injury You have had an injury to your brain. You may have symptoms for weeks after your injury. For the first 48 hours after discharge from the hospital: - Do not take any medicine that causes drowsiness or sleepiness unless it is prescribed by your trauma doctor - Do not drink alcohol, drive or operate heavy machinery such as a car, ATV, motorcycle, tools or alawnmower - Have a responsible adult stay with you. If they are unable to wake you up, they should call 911 right away. Call your neurosurgeon if you have: - A fever over 101 degrees - Nausea, vomiting, or a stiff neck - Memory loss or a hard time concentrating - Pupils which are unequal in size. Your pupils are the dark center in the middle of your eye - Changes in your personality such as more aggressive or risky behavior - Problems with sleeping - either sleeping too much or not enough CLAVICLE & SCAPULA FRACTURE, HOME CARE INSTRUCTIONS Medications - Take medication as directed. No driving or drinking alcohol while taking pain medication. - Resume all medication you were taking. Activity - Wear your sling as needed for comfort or as instructed by your doctor. You may also remove the sling to gently move your elbow and wrist. - Do not drive while you are taking narcotic pain medication (e.g., Percocet, Vicodin, Darvocet). - You may move the elbow and wrist as you can tolerate. - Do not place any weight on the affected extremity until seen in the office. - Do not use the injured extremity for lifting, pushing, pulling, etc. Diet - You may begin eating or drinking as soon as you feel up to it. - Drink plenty of fluids. - Eat a well balanced diet. Call Your Doctor if: - You have chills and/or a persistent temperature over 101 degrees F. - You have unexpected pain, redness or swelling of your hand or arm. - You have questions or concerns about your condition or care. Call 911 or go to the nearest emergency room if: - You have trouble breathing all of a sudden. - You have chest pain. Broken Rib: Care Instructions Your Care Instructions A broken rib is a crack or break in one of the bones of the rib cage. Breathing can be very painfulbecause the muscles used for breathing pull on the rib. In most cases, a broken rib will heal on its own. You can take pain medicine while the rib mends. Pain relief allows you to take deep breaths. In the past, doctors recommended taping or wrapping broken ribs. This is no longer done because taping makes it hard for you to take deep breaths. Taking deep breaths may help prevent pneumonia or a partial collapse of a lung. Your rib will heal in about 6 weeks. You heal best when you take good care of yourself. Eat a variety of healthy foods, and don't smoke. Follow-up care is a mora part of your treatment and safety. Be sure to make and go to all appointments, and call your doctor if you are having problems. It's also a good idea to know your test resultsand keep a list of the medicines you take. How can you care for yourself at home? Be safe with medicines. Read and follow all instructions on the label. ? If the doctor gave you a prescription medicine for pain, take it as prescribed. ? If you are not taking a prescription pain medicine, ask your doctor if you can take an nqsb-wzi-yekfnzx medicine. Even if it hurts, try to cough or take the deepest breath you can at least once every hour. This will get air deeply into your lungs. This may reduce your chance of getting pneumonia or a partial collapse of a lung. Hold a pillow against your chest to make this less painful. Put ice or a cold pack on the area for 10 to 20 minutes at a time. Put a thin cloth between the iceand your skin. When should you call for help? Call 911 anytime you think you may need emergency care. For example, call if: You have severe trouble breathing. Call your doctor now or seek immediate medical care if: You have some trouble breathing. You have a fever. You have a new or worse cough. Watch closely for changes in your health, and be sure to contact your doctor if: You have pain even after taking your medicine. You do not get better as expected. Where can you learn more? Log into your personal health record on https://[employer] and enter M135 in the Education box to learn more about Broken Rib: Care Instructions. Current as of: June 23, 2019 Content Version: 12.6 [employer]. Care instructions adapted under license by your healthcare professional. If you have questions about a medical condition or this instruction, always ask your healthcare professional. [employer] disclaims any warranty or liability for your use of this information. Learning About Using an Incentive Spirometer What is an incentive spirometer? An incentive spirometer is a handheld device that exercises your lungs and measures how much air you can breathe in. It tells you and your doctor how well your lungs are working. The spirometer can help you practice taking deep breaths. Deep breaths can help open your airways and prevent fluid or mucus from building up in your lungs, and make it easier for you to breathe. Using the device can help prevent serious lung infections like pneumonia, improve your breathing after you've had pneumonia or surgery, and keep your airways open and lungs active if you can't get out of bed. How do you use an incentive spirometer? When you use an incentive spirometer, you breathe in air through a tube that is connected to a large air column containing a piston or ball. As you breathe in, the piston or ball inside the column moves up. The height of the piston or ball shows how much air you breathed in. You may feel lightheaded when you breathe in deeply for this exercise. If you feel dizzy or feel like you're going to pass out, stop the exercise and rest. Each time you do this exercise, keep track of your progress by writing down how high the piston or ball moves up the column. 1. Move the slider on the outside of the large column to the level that you want to reach or that your doctor recommended. 2. Sit or stand up straight, and hold the spirometer in front of you. Be sure to keep it level. 3. To start, breathe out normally. Then close your lips tightly around the mouthpiece. Make sure that you don't block the mouthpiece with your tongue. 4. Take a slow, deep breath. Breathe in as deeply as you can. As you breathe in, the piston or ballinside the large column will move up. Try to move the piston or ball as high up as you can or to the level your doctor recommended. When you can't breathe in anymore, hold your breath for 2 to 5 seconds. 5. Relax, take the mouthpiece out of your mouth, and breathe out normally. 6. Repeat steps 1 through 5 as many times as your doctor tells you to. 7. After you've taken the recommended number of breaths, try to cough a few times. This will help loosen any mucus that has built up in your lungs. It will make it easier for you to breathe. If you just had surgery on your belly or chest, hold a pillow over your cut (incision) when you cough. Follow-up care is a mora part of your treatment and safety. Be sure to make and go to all appointments, and call your doctor if you are having problems. It's also a good idea to know your test resultsand keep a list of the medicines you take. Where can you learn more? Log into your personal health record on https://[employer] and enter B979 in the Education box to learn more about Learning About Using an Incentive Spirometer. Current as of: June 16, 2019 Content Version: 12.6 [employer]. Care instructions adapted under license by your healthcare professional. If you have questions about a medical condition or this instruction, always ask your healthcare professional. [employer] disclaims any warranty or liability for your use of this information. Contusion: Care Instructions Your Care Instructions Contusion is the medical term for a bruise. It is the result of a direct blow or an impact, such asa fall. Contusions are common sports injuries. Most people think of a bruise as a ajryz-uox-jrgw spot. This happens when small blood vessels get torn and leak blood under the skin. But bones, muscles, and organs can also get bruised. This may damage deep tissues but not cause a bruise you can see. The doctor will do a physical exam to find the location of your contusion. You may also have tests to make sure you do not have a more serious injury, such as a broken bone or nerve damage. These mayinclude X-rays or other imaging tests like a CT scan or MRI. Deep-tissue contusions may cause pain and swelling. But if there is no serious damage, they will often get better in a few weeks with home treatment. The doctor has checked you carefully, but problems can develop later. If you notice any problems ornew symptoms, get medical treatment right away. Follow-up care is a mora part of your treatment and safety. Be sure to make and go to all appointments, and call your doctor if you are having problems. It's also a good idea to know your test resultsand keep a list of the medicines you take. How can you care for yourself at home? Put ice or a cold pack on the sore area for 10 to 20 minutes at a time to stop swelling. Put a thincloth between the ice pack and your skin. Be safe with medicines. Read and follow all instructions on the label. ? If the doctor gave you a prescription medicine for pain, take it as prescribed. ? If you are not taking a prescription pain medicine, ask your doctor if you can take an tbag-tfr-lqsejbi medicine. If you can, prop up the sore area on pillows as much as possible for the next few days. Try to keepthe sore area above the level of your heart. When should you call for help? Call your doctor now or seek immediate medical care if: Your pain gets worse. You have new or worse swelling. You have tingling, weakness, or numbness in the area near the contusion. The area near the contusion is cold or pale. Watch closely for changes in your health, and be sure to contact your doctor if: You do not get better as expected. Where can you learn more? Log into your personal health record on [email or web address] and enter H828 in the Education box to learn more about Contusion: Care Instructions. Current as of: October 16, 2018 Content Version: . [employer]. Care instructions adapted under license by your healthcare professional. If you have questions about a medical condition or this instruction, always ask your healthcare professional. [employer] disclaims any warranty or liability for your use of this information. Scalp Cut Closed With Susanne or Stitches: Care Instructions Your Care Instructions A scalp laceration is a cut on your head. You may be able to see the cut, or it may be covered by your hair. The cut may throb or feel tender, and you may have a headache. The doctor used susanne or stitches to close the cut. This helps the cut heal and reduces scarring. Your doctor will tell you when to have your stitches or susanne removed. This is usually in 7 to 14days. How long you'll be told to wait depends on where the cut is located, how big and how deep thecut is, and what your general health is like. Your scalp may itch as it heals. This is more likely if the doctor trimmed or shaved your hair in order to place the susanne or stitches. The doctor has checked you carefully, but problems can develop later. If you notice any problems ornew symptoms, get medical treatment right away. Follow-up care is a mora part of your treatment and safety. Be sure to make and go to all appointments, and call your doctor if you are having problems. It's also a good idea to know your test resultsand keep a list of the medicines you take. How can you care for yourself at home? Keep the cut dry for the first 24 to 48 hours. After this, you can shower if your doctor okays it. Pat the cut dry. Don't soak the cut, such as in a bathtub. Your doctor will tell you when it's safe to get the cut wet. If your doctor told you how to care for your cut, follow your doctor's instructions. If you did notget instructions, follow this general advice: ? After the first 24 to 48 hours, wash around the cut with clean water 2 times a day. Don't use hydrogen peroxide or alcohol, which can slow healing. ? You may cover the cut with a thin layer of petroleum jelly, such as Vaseline. ? Apply more petroleum jelly as needed. Avoid any activity that could cause your cut to reopen. Do not remove the susanne or stitches on your own. Your doctor will tell you when to come back to have them removed. Be safe with medicines. Read and follow all instructions on the label. ? If the doctor gave you a prescription medicine for pain, take it as prescribed. ? If you are not taking a prescription pain medicine, ask your doctor if you can take an hcfn-ytr-lcqkyym medicine. When should you call for help? Call 911 anytime you think you may need emergency care. For example, call if: Blood is pumping from the cut or does not stop or slow down with pressure. Call your doctor now or seek immediate medical care if: You have new pain or your pain gets worse. You have tingling, weakness, or numbness near the cut. The cut starts to bleed a lot. Oozing small amounts of blood is normal. You have symptoms of infection, such as: ? Increased pain, swelling, warmth, or redness around the cut. ? Red streaks leading from the cut. ? Pus draining from the cut. ? A fever. Watch closely for changes in your health, and be sure to contact your doctor if: The cut reopens. You do not get better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 Ulcer - Risk of Goal: Absence of pressure ulcer Outcome: Partially Met The pt has had 3 loose stools this AM. Pt has had incontinence but also have BM in toilet. [facility] Nurse Notes Problem: Actual or potential alteration in health Goal: Absence of healthcare acquired conditions Outcome: Met Goal: Knowledge of Enviroment Outcome: Met Problem: Falls, Risk of Goal: Absence of falls Outcome: Met Problem: Pressure Ulcer - Risk of Goal: Absence of pressure ulcer Outcome: Met Problem: Actual or potential alteration in health Goal: Knowledge of Interdisciplinary Plan of Care Outcome: Partially Met Problem: Plan for Discharge Goal: Knowledge of discharge plan and instructions Outcome: Partially Met Encouraged pt to drink two pitchers of water to help with bowels and bladder infection. The pt's son called to inquire on his father's day. [facility] Speech Language Pathology Notes Problem: Cognition - Impaired Goal: ST- STG Cog-Log Description: ST Cog-Log - Patient will score a 27 or above on the Cog-Log prior to discharge from speech therapy. Outcome: Not Addressed Goal: ST- STG Memory- memory strategies Description: ST Memory - Patient will complete memory tasks with the use of memory strategies with 90% accuracy and no cues. Outcome: Not Addressed Goal: ST- STG Problem Solving- verbal problem solving Description: ST Problem Solving - Patient will complete basic to mod complex reasoning and verbal problem solving tasks with 90% accuracy and no cues. Outcome: Not Addressed Goal: ST- STG Executive Function- sequencing/organization/planning Description: ST Executive Function - Patient will complete basic to mod complex organizing, planning, and sequencing tasks with 90% accuracy and no cues. Outcome: Not Addressed Goal: ST- LTG Executive Function- sequencing/organization/planning Description: ST Executive Function - Patient will demonstrate improved overall cognitive linguistic abilities to aid in safe return to independence w/ADLs and iADLs as well as return to driving upon discharge home Outcome: Not Addressed [facility] Occupational Therapy Notes Problem: Self-care Deficit Goal: OT- LTG grooming Description: OT - Patient will complete grooming tasks while standing at sink with modified independence in order to improve self care function. Outcome: Not Addressed Goal: OT- LTG LB dressing Description: OT - Patient will complete LB dressing, including footwear management, with modified independence in order to improve self care function. Outcome: Not Addressed Goal: OT- LTG LB bathing Description: OT - Patient will complete UB / LB bathing with modified independence while seated with use of AE in order to improve self care function. Outcome: Not Addressed Goal: OT- LTG toileting Description: OT - Patient will complete toileting with modified independence and use of AD as needed in order to improve self care function. Outcome: Not Addressed Goal: OT- LTG Self-Care Other Description: OT- Patient will participate in family/caregiver training as needed to enhance a safe return to home environment by time of discharge, including education on fall prevention, HEP, and any adaptive equipment needs. Outcome: Not Addressed Problem: Mobility - Impaired Goal: OT- LTG toilet transfer Description: OT - Patient will complete toilet transfer with modified independence and use of AD as needed in preparation for ADL's. Outcome: Not Addressed Goal: OT- LTG Tub Transfer Description: OT - Patient will complete tub transfer with stand by assist and use of DME in simulated home setup in preparation for ADL's. Outcome: Not Addressed Goal: OT- LTG navigation Description: OT - Patient will navigate environment with stand by assist and use of AD in 8-10 min durations while engaged in functional reaching/item retrieval tasks without LOB for anticipated safe return to home/community. Outcome: Not Addressed Problem: Impaired Strength Goal: OT- LTG AROM Description: OT - Patient will participate in variety of AROM / AAROM / PROM exercises for the RUE in order to increase joint ROM for improved independence with daily tasks at home, displaying improved AROM measurements to 100 degrees shoulder flexion by time of discharge. Outcome: Not Addressed Goal: OT- LTG Strength Other Description: OT- Patient will demonstrate bilateral improved etl bi developer strength by 10 lbs in order to improve functional use of bilateral hands for engagement in daily tasks. Outcome: Not Addressed Problem: Impaired Neurologic Function Goal: OT- LTG dynamic sitting balance Description: OT - Patient will complete dynamic sitting balance activity with modified independence while seated unsupported at EOB/EOM in 15 min durations with no LOB in preparation for ADL's. Outcome: Not Addressed Goal: OT- LTG dynamic standing balance Description: OT - Patient will complete dynamic standing balance activity with stand by assist and intermittent stabilization on WW as needed while engaged in functional tasks outside JO[facility]LE in 10-12 min durations in preparation for ADL's. Outcome: Not Addressed Goal: OT- LTG in-hand manipulation/coordination Description: OT - Patient will increase in-hand manipulation/coordination as evidenced by time to complete 9-Hole Peg Test to 50 seconds or less in the R hand for improved ease with ADLs/IADLs. Outcome: Not Addressed [facility] Nurse Notes Problem: Pressure Ulcer - Risk of Goal: Absence of pressure ulcer Outcome: Met Note: No pressure injury noted. Encouraged pt to reposition himself while in bed to prevent bed sores. Problem: Actual or potential alteration in health Goal: Absence of healthcare acquired conditions Outcome: Partially Met Goal: Knowledge of Interdisciplinary Plan of Care Outcome: Partially Met Note: Explained to pt. His schedule for Sunday. Goal: Knowledge of Enviroment Outcome: Partially Met Problem: Falls, Risk of Goal: Absence of falls Outcome: Partially Met Note: Instructed pt. To use his call light and to wait for assistance. Instructed pt. To not get up by himself. Pt. Voiced comprehension. Problem: Plan for Discharge Goal: Knowledge of discharge plan and instructions Outcome: Partially Met documented in this encounter Care Teams (unrecognized sec tion and content) Finish Rolls Operator Relationship Specialty Start Date End Date Racheal Stephens MD [address] [place] [address] PCP - General Family Medicine 01/24/20 Team Status: Inactive Member Role Status Dates Dr. Amol Tang MD Attending Provider, Referr ing Provider Active Team Status: Active Member Role Status Dates Dr. Racheal Stephens MD Primary Care Provider Active Team Status: Inactive Member Role Status Dates Dr. Amol Tang MD Attending Provider Active Dr. Racheal Stephens MD Primary Care Provider Active Team Status: Inactive Member Role Status Dates Dr. Amol Tang MD Attending Provider, Referr ing Provider Active Dr. Racheal Stephens MD Primary Care Provider Active Goals (unrecognized section and content) Goals may be documented in a n alternate section FOR RECORDS PERTAINING TO PATIENTS WHO ARE OR HAVE BEEN ENROLLED IN A CHEMICAL DEPENDENCY/SUBSTANCEABUSE PROGRAM, SOME INFORMATION MAY BE OMITTED. This clinical summary was aggregated from multiple sources. Caution should be exercised in using it in the provision of clinical care. This summary normalizes information from multiple sources, and as a consequence, information in this document may materially change the coding, format and clinical context of patient data. In addition, data may be omitted in some cases. CLINICAL DECISIONS SHOULD BE BASED ON THE PRIMARY CLINICAL RECORDS. Content Syndicate: [employer] [facility]. provides no warranty or guarantee of the accuracy or completeness of information in this document.
--- NOTE | 2024-12-24 08:02 | MRI_ITS ---
EXAM: PELVIS W/WO CONTRAST 12/24/2024 CLINICAL HISTORY: PROSTATE CA. TECHNIQUE: Procedure Code: [id number] Modality: MR Procedure: PELVIS W/WO CONTRAST Multiplanar and multisequence images were obtained with intravenous gadolinium contrast. CONTRAST: Clariscan VOLUME: 18 mL COMPARISON: None FINDINGS: Prostate size: 4.5 x 4.2 x 4.5 cm Volume: 44.2 cc PSA: 26.22 Density: 0.595 There is a large area of T2 signal abnormality involving the entire prostate gland with primarily the left peripheral zone which appears across midline and extending to the right peripheral zone and transitional zone. There is extension of abnormal signal involving the seminal vesicles. This is associated with restricted diffusion, drop in signal on the ADC map and heterogeneous enhancement throughout the gland. Tumor size is 3.8 by 4.5 by 3.3 cm. Slight abnormal signal is seen adjacent to the left neurovascular bundle with extra capsular extension. Small pelvic lymph nodes are present in the sidewall and inguinal areas. Pelvis: No abnormal fluid collection. Osseous structures are intact. The bladder is unremarkable. Visible rectum is unremarkable. MRI/Pelvis W/WO Contrast IMPRESSION: Large 4.5 cm heterogeneous mass throughout the prostate gland, mostly in the le ft peripheral zone, with left extracapsular extension and extension into the left neurovascular bundle as well as seminal v esicles the base of the prostate. PI-RADS 5 - Very high (clinically significant cancer is highly likely to be pre sent) Reading Location: [id number]
== END | disposition home or self-care (01) ==
LOC: OPMRI 07:26
PROVIDERS: PCP Family Medicine; Referring Provider Preventive Medicine Public Health & General Preventive Medicine; Visit Provider Preventive Medicine Public Health & General Preventive Medicine
DX: Z12.5 Encounter for screening for malignant neoplasm of prostate (principal)
CPT/HCPCS: 72197; A9575; A4216